=== PATIENT | female | born 1990 | race Caucasian/White ===

== ENCOUNTER 2020-03-24 20:26 | Emergency (ER) | payer MEDICAID, SELFPAY ==
[2020-03-24 21:16] VITALS: BP 103/63; PULSE 106; RESP 16; TEMP 37.1; O2SAT 100; BMI 23.2
--- NOTE | 2020-03-24 21:32 | ED.BACK ---
HPI - Back Pain/Injury General Chief Complaint: Back Pain/Injury Stated Complaint: Back pain Time Seen by Provider: 03/24/20 21:11 Source: patient Mode of arrival: ambulatory History of Present Illness HPI Narrative: This is a 29-year-old female without significant past medical history who presents with complaints of a ?bump? to the coccyx area that she has had for years but then states that 4 days ago she began experiencing significant pain without associated fevers, chills, nausea, vomiting, urinary pain/burning/frequency. In addition, patient states that she began having left-sided flank pain and points to the posterior-lateral left flank and says that it radiates inferiorly and then points to the left iliac crest area. She denies any trauma, or falls to the area. However she states that it is painful for her to sit directly on her buttocks. Related Data Allergies Allergy/AdvReac Type Severity Reaction Status Date / Time iodine [IODINE] Allergy Unknown ANGIOEDEMA Unverified 11/09/19 17:33 iodine Allergy Unknown Uncoded 09/07/17 00:00 SEAFOOD Allergy Unknown ANGIOEDEMA Uncoded 11/09/19 17:33 Review of Systems Review of Systems: Pertinent positives and negatives as stated in HPI 10 point review systems is otherwise negative. PMFSH Past Medical History Source: nursing notes reviewed Medical History No known health problems Social History Social History Alcohol intake: never Smoking Status: Current every day smoker Use of substances other than those prescribed or required for medical reasons: No Any prior treatment program specific to substance use: No Advance Directives: No Advance Directives Information Provided: Yes Physical Exam Vital Signs: Vital Signs: Last Vital Signs Temp 98.7 F 03/24/20 21:16 Pulse 106 H 03/24/20 21:16 Resp 16 03/24/20 21:16 BP 103/63 03/24/20 21:16 Pulse Ox 100 03/24/20 21:16 Body Mass Index 23.2 VITAL SIGNS: Reviewed. GENERAL: Well developed, well nourished, in no acute distress. HEAD: Normocephalic/atraumatic, EYES: PERRLA, EOMI intact without pain, no nystagmus/pallor/icterus noted EARS: Ext canals without abnormality, TMs non-bulging and non-erythematous NOSE: Nares patent bilateral OROPHARYNX: no oral lesions noted, posterior pharynx clear and non-erythematous without noted tonsillar enlargement/erythema/exudates NECK: Supple, no adenopathy LUNGS: Normal breath sounds. No adventitious sounds or accessory muscle use. SpO2<100> CARDIOVASCULAR: Regular rate and rhythm without noted murmurs, no JVD or lower extremity edema. ABDOMEN: Soft, non-tender, non-distended with bowel sounds. No rigidity. No guarding. No palpable masses or hernias noted BUTTOCKS: (physician relations specialist: Carolyne) inspection of the coccyx area does not reveal erythema, swelling, induration or tenderness on palpation; patient points to an area on the medial right gluteal cleft as the site of the bump and on palpation unable to appreciate and there is no overlying erythema, induration, swelling however there is a noted ?blackhead? slightly inferior to this location that does not appear inflamed. NEUROLOGIC: Alert and oriented x 4. Strength and sensation to light touch were grossly intact x 4. Course Course Course Narrative: This is a 29-year-old female with history and clinical presentation initially thought to be possible pilonidal cyst, however clinical exam does not support this. Possibility of a lipoma or sebaceous cyst, but again unable to palpate any identifiable ?bump?. As far as the left flank pain will investigate for possible pyelonephritis although given the absence of fever, nausea, vomiting this is less likely and the distribution of pain is inconsistent with renal colic. -UA, U preg, combination analgesics, soft tissue ultrasound of buttock area. Review of all investigations and re-evaluation: No acute findings to suggest UTI, , or abscess/cyst. Patient states that she has had resolution of the pain at her left flank and understands that she should follow-up with her primary care provider by calling the office in the morning. MDM - Back Pain/Injury Lab Data Labs: Lab Results 03/24/20 Range/Units 21:48 Urine Color YELLOW Urine Appearance CLEAR Urine pH 6.5 (5.0-8.0) Ur Specific [place] 1.020 (1.005-1.025) Urine Protein NEG (NEG-TRACE) MG/DL Urine Glucose (UA) NEG (NEG) MG/DL Urine Ketones NEG (NEG) MG/DL Urine Blood NEG (NEG) Urine Nitrite NEG (NEG) Ur Leukocyte Esterase TRACE H (NEG) Urine RBC 1-4 (0) /HPF Urine WBC 5-9 H (0-4) /HPF Ur Squamous Epith Cells 1+ /LPF Ur Renal Epithelial Cell TRACE /LPF Urine Bacteria 3+ /LPF Urine Test NEGATIVE (NEGATIVE) Discharge Plan Discharge Clinical Impression: Flank pain, Gluteal pain Patient Disposition: Home, Self-Care Instructions: Flank Pain (ED) Additional Instructions: 1. Tylenol 1000 mg, por v?a oral, cada 6 horas seg?n sea necesario para controlar el dolor. No exceda los 4000 mg en 24 horas. 2. Ibuprofeno 400 mg, por v?a oral con leche o alimentos, cada 6 horas seg?n sea necesario para controlar el dolor. Puede taiwo esto en combinaci?n con Tylenol para un mayor control de los s?ntomas. 3. Parche de lidoca?na, estos est?n disponibles en todos los [facility], apl?quelo en el ?julieta de m?xima sensibilidad wanda se indica en el empaque exterior. 4. Considere el uso de compresas h?medas y tibias en el ?julieta de la nalga, de 3 a 4 veces al d?a. 5. Nikhil un seguimiento con maier proveedor de atenci?n primaria llamando al consultorio ma?irene por la ma?irene. No dude en volver al servicio de urgencias si los s?ntomas empeoran. Referrals: Irene Combs MD [Primary Care Provider] - 2 days (Re-evaluation and management of bump/pain at right mid gluteal cleft, left flank without evidence of UTI or abscess/cyst on ultrasound.) Print Language: [place]
--- NOTE | 2020-03-24 21:38 | US_ITS ---
EXAMINATION: US right gluteal cleft CLINICAL INFORMATION: Evaluate bump. Rule out abscess. COMPARISON: None TECHNIQUE: Targeted ultrasound of the area of palpable abnormality. FINDINGS: In the area of clinical concern in the mid gluteal cleft, no focal mass, fluid collection or abscess is identified. US/US pelvic limited IMPRESSION: No focal fluid collection or abscess is identified in the area of clinical concern.
[2020-03-24] MEDS: Acetaminophen 325 MG TABLET 975 MG PO (21:49)
[2020-03-24] MEDS: Ketorolac Tromethamine 15 MG/ML VIAL IM (21:50)
[2020-03-24] MEDS: Lidocaine 4 % Patch ADH..PATCH 1 PATCH TRANSDERMA (21:52)
[2020-03-24 22:02] LABS: Glucose Urine UA NEG (NEG); Leukocyte Esterase Urine TRACE (NEG); Nitrite Urine NEG (NEG); PH 6.5 (5.0-8.0); UACC Culture Trigger YES; Urine Blood NEG (NEG); Urine Ketones NEG (NEG); Urine Protein NEG (NEG-TRACE)
[2020-03-24 22:10] LABS: Appearance Urine CLEAR; Color Urine YELLOW
[2020-03-24 22:11] LABS: UPreg QC Valid YES; Urine Pregnancy NEGATIVE (NEGATIVE)
[2020-03-24 22:19] LABS: Bacteria Urine 3+ /LPF; Renal Epithelial Cells Urine TRACE /LPF; Squamous Epithelial Cell Urine 1+ /LPF
== END 2020-03-24 23:35 | disposition home or self-care (01) ==
PROVIDERS: Emergency Provider Student in an Organized Health Care Education/Training Program; PCP Internal Medicine
DX: M54.5 Low back pain (principal); F17.200 Nicotine dependence, unspecified, uncomplicated; Z71.6 Tobacco abuse counseling
CPT/HCPCS: 76857; 81001; 81003; 81025; 87086; 87088; 87186; 96372; 99284; J1885

== ENCOUNTER 2020-03-28 23:44 | Emergency (ER) | payer OTHER, SELFPAY ==
[2020-03-29 00:03] VITALS: BP 108/64; PULSE 91; RESP 16; TEMP 36.9; O2SAT 99; BMI 45.9
--- NOTE | 2020-03-29 00:21 | ED_ITS ---
HPI - Headache General Chief Complaint: Nausea/Vomiting/Diarrhea Stated Complaint: VOMITING/HEADACHE Time Seen by Provider: 03/29/20 00:15 Source: patient Mode of arrival: ambulatory Limitations: no limitations History of Present Illness HPI Narrative: Patient history of migraine with feeling nauseated with frontal headache vomited 3 times today feels a little different than usual sensitive to light also she did not feel hungry for last 2 days denies any COVID contacts no fever no cough MD elicited complaint: headache and migraine Onset (ago): day(s) (1) Onset description: gradually Location: frontal Severity: moderate Quality & Timing: sharp Exacerbating factors: light and noise Relieving factors: nothing Context: occurred at rest Associated symptoms: nausea and vomiting Treatments prior to arrival: none Related Data Previous Rx's Medication Instructions Recorded escitalopram oxalate 10 mg tablet 10 mg PO DAILY 30 Days #30 tab 03/28/20 meloxicam 15 mg tablet 15 mg PO DAILY 30 Days #30 tab 03/28/20 prednisone 10 mg tablet 10 mg PO DAILY 9 Days #18 tab 03/28/20 [id number] 1 cap PO Q6H PRN #20 cap 03/29/20 [Fioricet] ondansetron 4 mg PO Q6-8H PRN #20 tab 03/29/20 sumatriptan succinate [Imitrex] 50 mg PO Q2H PRN #10 tab 03/29/20 Allergies Allergy/AdvReac Type Severity Reaction Status Date / Time iodine [IODINE] Allergy Unknown ANGIOEDEMA Unverified 11/09/19 17:33 iodine Allergy Unknown Uncoded 09/07/17 00:00 SEAFOOD Allergy Unknown ANGIOEDEMA Uncoded 11/09/19 17:33 Review of Systems Review of Systems: Constitutional : No Weight loss, No Fever, No Chills ENT/Mouth : No sore throat, No Rhinorrhea Eyes: No Eye Pain, No Swelling Cardiovascular : No Chest Pain, no palpitations Respiratory : No Cough, No Sputum, no shortness of breath Gastrointestinal : +Nausea, +Vomiting, No Diarrhea, No abdominal Pain, no black stools Genitourinary : No Dysuria, No Urinary Frequency Musculoskeletal : No joint pain, No Myalgias, No Joint Swelling Skin : No Skin Lesions, No rash Neuro : No Weakness, No Numbness, No Dizziness, Psych : No Anxiety/Panic, No Depression Heme/Lymph: No Bruising, No Lymphadenopathy Endocrine : No Polyuria, No Polydipsia All other systems reviewed and are negative [facility] Past Medical History Medical History Anxiety and depression Coccyx pain No known health problems Family History Family History Mother Cancer Diabetes Osteoporosis Father No problems noted. Social History Social History Alcohol intake: never Smoking Status: Current every day smoker Advance Directives: No Advance Directives Information Provided: No Physical Exam Vital Signs: Vital Signs: Last Vital Signs Temp 98.5 F 03/29/20 00:03 Pulse 91 03/29/20 00:03 Resp 16 03/29/20 00:03 BP 108/64 03/29/20 00:03 Pulse Ox 99 03/29/20 00:03 Body Mass Index 45.9 Appearance: Alert. Oriented X3. No acute distress. Eyes: Pupils equal, round and reactive to light. Sensitive to light ENT: Pharynx normal. Neck: Normal inspection. Neck supple. CVS: Normal heart rate and rhythm. Pulses normal. Respiratory: No respiratory distress. Breath sounds normal. Abdomen: Soft and nontender. Bowel sounds are present, no mass palpable, no CVA tenderness Skin: Skin warm and dry. Normal skin color. Normal skin turgor. Extremities: No lower extremity edema. Neuro: Oriented X 3. No motor deficit. No sensory deficit. Course Course Course Narrative: Patient felt better after Imitrex no headache at this time will discharge her home COVID 19 is negative MDM - Headache Lab Data Attestation: I reviewed the patient's lab results. Labs: Lab Results 03/29/20 03/29/20 Range/Units 00:29 00:31 Urine Color YELLOW Urine Appearance CLEAR Urine pH 6.0 (5.0-8.0) Ur Specific [place] 1.010 (1.005-1.025) Urine Protein NEG (NEG-TRACE) MG/DL Urine Glucose (UA) NEG (NEG) MG/DL Urine Ketones NEG (NEG) MG/DL Urine Blood NEG (NEG) Urine Nitrite NEG (NEG) Ur Leukocyte Esterase NEG (NEG) Urine Test NEGATIVE (NEGATIVE) COVID-19 (MAYELIN) Negative (Negative) COVID-19 Clin Com See Note Discharge Plan Discharge Clinical Impression: Migraine headache Qualifiers: Migraine type: without aura Status migrainosus presence: without status migrainosus Intractability: not intractable Qualified Code(s): G43.009 - Migraine without aura, not intractable, without status migrainosus Patient Disposition: Home, Self-Care Instructions: Migraine Headache (ED) Additional Instructions: Rest at home. Take medication from migraine as prescribed. Follow-up with your PCP if not better Prescriptions: New sumatriptan succinate [Imitrex] 50 mg tablet 50 mg PO Q2H PRN (Reason: migraine headache) Qty: 10 RF: 0 ondansetron 4 mg tablet,disintegrating 4 mg PO Q6-8H PRN (Reason: Nausea And Vomiting) Qty: 20 RF: 0 [id number]-ruhahyenxwxeo-uoxy [Fioricet] 50-300-40 mg capsule 1 cap PO Q6H PRN (Reason: pain) Qty: 20 RF: 0 No Action escitalopram oxalate 10 mg tablet 10 mg PO DAILY 30 Days Qty: 30 RF: 0 meloxicam 15 mg tablet 15 mg PO DAILY 30 Days Qty: 30 RF: 0 prednisone 10 mg tablet 10 mg PO DAILY 9 Days Qty: 18 RF: 0
[2020-03-29 00:45] LABS: Glucose Urine UA NEG (NEG); Leukocyte Esterase Urine NEG (NEG); Nitrite Urine NEG (NEG); Urine Blood NEG (NEG); Urine Ketones NEG (NEG); Urine Protein NEG (NEG-TRACE)
[2020-03-29 00:49] LABS: Appearance Urine CLEAR; Color Urine YELLOW; UPreg QC Valid YES; Urine Pregnancy NEGATIVE (NEGATIVE)
[2020-03-29 00:52] LABS: COVID-19 Test Negative (Negative); IDNOW Serial# 9DD0AD1C
== END 2020-03-29 01:09 | disposition home or self-care (01) ==
PROVIDERS: Emergency Provider Internal Medicine; PCP Internal Medicine
DX: G43.009 Migraine without aura, not intractable, without status migrainosus (principal); F17.200 Nicotine dependence, unspecified, uncomplicated; Z20.822 Contact with and (suspected) exposure to COVID-19; Z71.6 Tobacco abuse counseling; Z79.899 Other long term (current) drug therapy
CPT/HCPCS: 36415; 81003; 81025; 87635; 96372; 99283; 99284; J3030

== ENCOUNTER 2021-08-22 04:30 | Emergency (ER) | payer OTHER, SELFPAY ==
--- NOTE | ~2021-08-22 | CT_ITS ---
EXAMINATION: CT ABDOMEN AND PELVIS WITHOUT CONTRAST CLINICAL INFORMATION: Abdominal pain. COMPARISON: April 04, 2007. TECHNIQUE: Multidetector volumetric imaging was performed from the superior aspect of the liver through the pubic symphysis. Sagittal and coronal reformatted images were obtained on the technologist's workstation. This CT examination was performed using dose optimization techniques as appropriate, variously including the following: *Automated exposure control *Adjustment of mA and/or kV according to patient size (this includes techniques or standardized protocols for targeted exams where dose is matched to indication/reason for exam; i.e. extremities or head) *Use of iterative reconstruction technique DLP: 413 mGy-cm FINDINGS: Limited by lack of contrast. LUNG BASES: The visualized lung bases appear unremarkable. LIVER, GALLBLADDER, AND BILIARY TREE: The liver appears unremarkable in size, shape, and attenuation. No focal hepatic lesion or biliary ductal dilatation is appreciated. Remarkable appearance of the gallbladder. PANCREAS: Unremarkable. SPLEEN: Unremarkable. ADRENAL GLANDS: Unremarkable. KIDNEYS AND URETERS: The kidneys appear unremarkable in size, shape, and attenuation. No hydronephrosis, hydroureter, or calculi seen. BLADDER: Poorly distended, therefore suboptimally evaluated. Grossly unremarkable. GASTROINTESTINAL TRACT: Suspect long segment thickening of left abdominal small bowel loops, with mild induration of adjacent fat. Unremarkable appearance of the large bowel. No diverticulosis. Normal-appearing distal ileum. No evidence of appendicitis. ABDOMINAL WALL: No significant hernia is appreciated. LYMPH NODES: Normal. VASCULAR: Unremarkable. PELVIC VISCERA: Less than 2 cm, ovoid, hypodense, presumably cystic lesions either side of the introitus, left larger than right (image 84, series 3). Tampon in vagina. OSSEOUS STRUCTURES: Unremarkable. CT/CT abdomen pelvis wo con IMPRESSION: Limited by lack of oral and intravenous contrast. Suspect long segment thickening of left abdominal small bowel loops, with mild induration of adjacent fat. The findings suggest enteritis. Less than 2 cm, ovoid, hypodense, presumably cystic lesions either side of the introitus, left larger than right. Differential diagnosis includes, but is not limited to, Bartholin's gland cysts. Recommend clinical correlation.
[2021-08-22 04:50] VITALS: BP 109/79; PULSE 89; RESP 20; TEMP 37.2; O2SAT 98; BMI 22.9
[2021-08-22 04:51] LABS: MANUAL DIFF FLAG NO
[2021-08-22 04:54] LABS: Basophils Percent Auto 0.3 % (0-2); Eosinophils Absolute Auto 0.1 X10*3/uL (0.0-0.4); Eosinophils Percent Auto 0.7 % (0-4); Hematocrit 38.6 % (37.0-47.0); Hemoglobin 13.1 g/dl (12.0-16.0); Imm Gran Abs Auto 0.05 X10*3/uL (0.00-0.03); Imm Gran Pct Auto 0.4 % (0.0-0.4); Lymphocytes Absolute Auto 2.3 X10*3/uL (1.2-4.9); Lymphocytes Percent Auto 20.4 % (20-40); Mean Corpuscular HGB Conc 33.9 g/dl (31.0-35.0); Mean Corpuscular Hemoglobin 29.8 pg (27.0-33.0); Mean Corpuscular Volume 87.9 fL (80.0-98.0); Mean Platelet Volume 9.9 fL (9.4-12.3); Monocytes Absolute Auto 0.6 X10*3/uL (0.1-1.2); Monocytes Percent Auto 5.7 % (2-11); Neutrophils Absolute Auto 8.1 x10*3/uL (2.0-8.3); Neutrophils Percent Auto 72.5 % (45-73); Platelet Count 286 X10*3/uL (160-400); Red Blood Count 4.39 X10*6/uL (4.20-5.50); Red Cell Distribution Width 12.9 % (11.0-16.0); White Blood Count 11.2 X10*3/uL (4.8-10.8)
[2021-08-22 04:59] LABS: Appearance Urine HAZY; Color Urine DK YELLOW; Glucose Urine UA NEG (NEG); Leukocyte Esterase Urine NEG (NEG); Nitrite Urine NEG (NEG); Specific Gravity - Urine 1.025 (1.005-1.025); Urine Blood NEG (NEG); Urine Ketones NEG (NEG); Urine Protein NEG (NEG-TRACE)
[2021-08-22 05:02] LABS: UPreg QC Valid YES; Urine Pregnancy NEGATIVE (NEGATIVE)
[2021-08-22 05:08] LABS: Alanine Aminotransferase 42 U/L (0-31); Albumin Level 4.1 g/dL (3.5-5.0); Alkaline Phosphatase 83 U/L (39-117); Anion Gap 10 (12-20); Aspartate Amino Transferase 80 U/L (5-31); Bilirubin Total 1.5 mg/dL (0.0-1.0); Blood Urea Nitrogen 8 mg/dL (9-16); Calcium 9.3 mg/dL (8.4-10.2); Carbon Dioxide 30 mmol/L (22-29); Chloride 102 mmol/L (96-108); Creatinine Clr Calc Pharmacy 81.3; Estimated Glomerular Filt Rate > 60; Glucose Random 109 mg/dL (60-115); Influenza A Negative (Negative); Influenza B2 Negative (Negative); Potassium 4.1 mmol/L (3.3-5.1); Sodium 138 mmol/L (135-145); Total Protein 6.6 g/dL (6.5-8.0)
[2021-08-22 05:29] LABS: COVID-19 Test Negative (Negative)
--- NOTE | 2021-08-22 08:09 | ED.GENADULT ---
HPI - General Adult General Chief complaint: Nausea/Vomiting/Diarrhea Stated complaint: stomach pain & vomiting Time Seen by Provider: 08/22/21 08:08 Source: patient and family (mother) Mode of arrival: ambulatory Limitations: no limitations History of Present Illness HPI narrative: Patient is a 30 year old female presenting to the emergency department today with abdominal pain, nausea, and vomiting. Patient states that the pain feels twisting and she isn't sure where it is coming from. Patient states that she ate pork and it started right after that. Patient denies any dizziness, lightheadedness, fever, chills, blurry vision, double vision, loss of vision, chest pain, difficulty breathing, shortness of breath, back pain, night sweats, pain with urination, increased urinary frequency, increased urinary urgency, blood in her urine or stool, syncope or a near syncopal episode, recent trauma or falls, bowel incontinence, bladder incontinence, bowel retention, bladder retention, or any other complaints at this time. Onset (ago): hour(s) Location: abdomen Radiation: non-radiation Severity: mild Severity scale (1-10): 3 Pain Consistency: constant Relieving factors: none Exacerbating factors: none Associated symptoms: nausea/vomiting Treatments prior to arrival: none Related Data Previous Rx's Medication Instructions Recorded escitalopram oxalate 10 mg tablet 10 mg PO DAILY 30 days #30 tabs 03/28/20 meloxicam 15 mg tablet 15 mg PO DAILY 30 days #30 tabs 03/28/20 prednisone 10 mg tablet 10 mg PO DAILY 9 days #18 tabs 03/28/20 [id number] 1 cap PO Q6H PRN pain #20 caps 03/29/20 50 mg-300 mg-40 mg capsule (Fioricet) sumatriptan succinate 50 mg tablet 50 mg PO Q2H PRN migraine headache 03/29/20 (Imitrex) #10 tabs ondansetron 4 mg disintegrating 4 mg PO Q8H 3 days #9 tabs 08/22/21 tablet Allergies Allergy/AdvReac Type Severity Reaction Status Date / Time iodine [IODINE] Allergy Unknown ANGIOEDEMA Unverified 11/09/19 17:33 iodine Allergy Unknown Uncoded 09/07/17 00:00 SEAFOOD Allergy Unknown ANGIOEDEMA Uncoded 11/09/19 17:33 Review of Systems Constitutional: Constitutional: Reports no additional constitutional complaints, Denies chills, Denies fever(s) and Denies night sweats Eyes: Eyes: Reports no additional eye complaints, Denies blurry vision, Denies change in vision, Denies diplopia, Denies eye discharge, Denies loss of vision and Denies eye pain ENT: Denies dizziness Cardiovascular: Cardiovascular: Reports no additional cardiovascular complaints, Denies chest pain, Denies lightheadedness, Denies Loss of Consciousness and Denies dyspnea Respiratory: Respiratory: Reports no additional respiratory complaints and Denies dyspnea Gastrointestinal: Gastrointestinal: Reports no additional gastrointestinal complaints, Reports abdominal pain, Denies melena, Denies hematochezia, Denies change in bowel habits, Denies change in stool character, Reports nausea and Reports vomiting Genitourinary: Genitourinary: Denies hematuria, Denies urinary frequency, Denies dysuria, Denies urinary incontinence, Denies urinary hesitancy and Denies urinary urgency Musculoskeletal: Musculoskeletal: Reports no additional musculoskeletal complaints, Denies numbness and Denies tingling Neurologic: Denies dizziness, Denies loss of vision, Denies numbness and Denies tingling Psychiatric: Psychiatric: Reports no additional psychiatric complaints Endocrine: Endocrine: Reports no additional endocrine complaints Hematologic/Lymphatic: Hematologic/Lymphatic: Reports no additional hematologic/lymphatic complaints Allergic/Immunologic: Allergic/Immunologic: Reports no additional allergic/immunologic complaints [facility] Past Medical History Attestation statement: The following information was validated with the patient. Source: old records reviewed Medical History Anxiety and depression Coccyx pain No known health problems Family History Family History Mother Cancer Diabetes Osteoporosis Father No problems noted. Social History Social History Alcohol intake: never Advance Directives: No Advance Directives Information Provided: No Physical Exam ED Vital Signs: Vital Signs - 24 hr 08/22/21 04:50 08/22/21 08:12 08/22/21 10:26 Temperature 98.9 F 98.4 F 99.4 F Pulse Rate 89 61 66 Respiratory Rate 20 16 16 Blood Pressure 109/79 99/53 L 110/70 Pulse Oximetry 98 100 100 Oxygen Delivery Method Room Air Room Air Room Air BMI result Body Mass Index 22.9 Const General: cooperative, no acute distress, alert and awake Nutritional Appearance: well nourished Orientation/consciousness: patient oriented x3 Limitations: no limitations HENMT Head: Yes normal to inspection and Yes atraumatic Ears: hearing grossly normal bilaterally and external ears normal General nose exam: Normal external nose present, no nasal discharge noted and no epistaxis Face and sinus: Yes normal facial exam, No abrasion and No laceration Mouth: Normal oral and palatal mucosa present, no drooling and no muffled voice Eyes General: appearance normal, both eyes and all related structures Periorbital: periorbital findings normal Eyelids: Yes eyelids normal Conjunctivae: conjunctivae normal Pupils: Equal, round and reactive pupils present EOM: EOMs intact bilaterally Neck Neck: Yes normal visual inspection, Yes full ROM and Yes no lymphadenopathy Chest Chest palpation & inspection: normal inspection of the chest Resp Effort & Inspection: normal respiratory effort and able to speak in complete sentences Auscultation: clear to auscultation bilaterally Cardio Rate: regular rate Rhythm: regular rhythm GI Inspection: Yes normal to inspection Neuro General: patient oriented x3 and moves all extremities Cranial nerves: Yes Equal, round and reactive pupils present Cognition (Neuro): normal cognition Motor exam (neuro): 5/5 motor strength present throughout Sensory Exam: Normal double simultaneous stimulation for sensation Coordination: [id number] test normal Extrem General: Yes normal to inspection, Yes full ROM and Yes capillary refill normal Psych Appearance: grossly normal Mental Status: mental status grossly normal Affect: normal affect Attitude: cooperative Thought process: Normal thought process present Thought content: Normal thought content present Insight: Good insight present (Psych) Medical Decision Making [facility] Narrative Medical decision making narrative: Patient is a 30 year old female presenting to the emergency department today with generalized abdominal pain, nausea, and vomiting. Patient's physical exam was unremarkable. Patient's blood work was unremarkable. Patient's urine showed no acute process. Patient's abdominal CT showed possible enteritis. I explained my physical exam findings as well as all test results to the patient and the patient's mother. I answered all questions asked by the patient and the patient's mother. Patient received IV Zofran, fluids, protonix, and PO Maalox which she stated helped her symptoms significantly. I stressed the importance of the patient taking her medication as prescribed. I stressed the importance of the patient following up with her primary care provider. I stressed the importance of the patient returning to the emergency department immediately if her symptoms were to worsen or if she were to develop any dizziness, shortness of breath, difficulty breathing, chest pain, blurry vision, loss of vision, nausea, vomiting, abdominal pain, fever, chills, back pain, or any other complaints. Patient and the patient's mother verbalized agreement and understanding with this treatment plan and discharge. Differential Diagnosis Differential Diagnosis: abdominal pain, nausea, vomiting Medical Records Medical records reviewed: Yes I reviewed the patient's medical records. Lab Data Lab results reviewed: Yes I reviewed the patient's lab results. Result diagrams: 08/22/21 04:45 08/22/21 04:45 Labs: Lab Results 08/22/21 08/22/21 08/22/21 Range/Units 04:45 04:45 04:45 WBC 11.2 H (4.8-10.8) X10*3/uL RBC 4.39 (4.20-5.50) X10*6/uL Hgb 13.1 (12.0-16.0) g/dl Hct 38.6 (37.0-47.0) % MCV 87.9 (80.0-98.0) fL MCH 29.8 (27.0-33.0) pg MCHC 33.9 (31.0-35.0) g/dl RDW 12.9 (11.0-16.0) % Plt Count 286 (160-400) X10*3/uL MPV 9.9 (9.4-12.3) fL Immature Gran % (Auto) 0.4 (0.0-0.4) % Neut % (Auto) 72.5 (45-73) % Lymph % (Auto) 20.4 (20-40) % Boyle % (Auto) 5.7 (2-11) % Eos % (Auto) 0.7 (0-4) % Baso % (Auto) 0.3 (0-2) % Lymph # (Auto) 2.3 (1.2-4.9) X10*3/uL Boyle # (Auto) 0.6 (0.1-1.2) X10*3/uL Eos # (Auto) 0.1 (0.0-0.4) X10*3/uL Baso # (Auto) 0.0 (0.0-0.2) X10*3/uL Abs Immat Gran (auto) 0.05 H (0.00-0.03) X10*3/uL Absolute Neuts (auto) 8.1 (2.0-8.3) x10*3/uL Absolute Nucleated RBC 0.000 (0.0-0.012) X10*3/uL Nucleated RBC % (auto) 0.0 (0.0-0.2) /100WBC Sodium 138 (135-145) mmol/L Potassium 4.1 (3.3-5.1) mmol/L Chloride 102 (96-108) mmol/L Carbon Dioxide 30 H (22-29) mmol/L Anion Gap 10 L (12-20) BUN 8 L (9-16) mg/dL Creatinine 0.80 (0.5-1.4) mg/dL Estim Creat Clear Calc 81.3 Estimated GFR > 60 Random Glucose 109 (60-115) mg/dL Calcium 9.3 (8.4-10.2) mg/dL Total Bilirubin 1.5 H (0.0-1.0) mg/dL AST 80 H (5-31) U/L ALT 42 H (0-31) U/L Alkaline Phosphatase 83 (39-117) U/L Total Protein 6.6 (6.5-8.0) g/dL Albumin 4.1 (3.5-5.0) g/dL Urine Color Urine Appearance Urine pH (5.0-8.0) Ur Specific [place] (1.005-1.025) Urine Protein (NEG-TRACE) MG/DL Urine Glucose (UA) (NEG) MG/DL Urine Ketones (NEG) MG/DL Urine Blood (NEG) Urine Nitrite (NEG) Ur Leukocyte Esterase (NEG) Urine Test (NEGATIVE) COVID-19 (MAYELIN) (Negative) COVID-19 Clin Com Influenza Type A (ROGE) Negative (Negative) Influenza Type B (ROGE) Negative (Negative) Influenza A & B Note See Note 08/22/21 08/22/21 08/22/21 Range/Units 04:45 04:49 04:49 WBC (4.8-10.8) X10*3/uL RBC (4.20-5.50) X10*6/uL Hgb (12.0-16.0) g/dl Hct (37.0-47.0) % MCV (80.0-98.0) fL MCH (27.0-33.0) pg MCHC (31.0-35.0) g/dl RDW (11.0-16.0) % Plt Count (160-400) X10*3/uL MPV (9.4-12.3) fL Immature Gran % (Auto) (0.0-0.4) % Neut % (Auto) (45-73) % Lymph % (Auto) (20-40) % Boyle % (Auto) (2-11) % Eos % (Auto) (0-4) % Baso % (Auto) (0-2) % Lymph # (Auto) (1.2-4.9) X10*3/uL Boyle # (Auto) (0.1-1.2) X10*3/uL Eos # (Auto) (0.0-0.4) X10*3/uL Baso # (Auto) (0.0-0.2) X10*3/uL Abs Immat Gran (auto) (0.00-0.03) X10*3/uL Absolute Neuts (auto) (2.0-8.3) x10*3/uL Absolute Nucleated RBC (0.0-0.012) X10*3/uL Nucleated RBC % (auto) (0.0-0.2) /100WBC Sodium (135-145) mmol/L Potassium (3.3-5.1) mmol/L Chloride (96-108) mmol/L Carbon Dioxide (22-29) mmol/L Anion Gap (12-20) BUN (9-16) mg/dL Creatinine (0.5-1.4) mg/dL Estim Creat Clear Calc Estimated GFR Random Glucose (60-115) mg/dL Calcium (8.4-10.2) mg/dL Total Bilirubin (0.0-1.0) mg/dL AST (5-31) U/L ALT (0-31) U/L Alkaline Phosphatase (39-117) U/L Total Protein (6.5-8.0) g/dL Albumin (3.5-5.0) g/dL Urine Color DK YELLOW Urine Appearance HAZY Urine pH 6.0 (5.0-8.0) Ur Specific [place] 1.025 (1.005-1.025) Urine Protein NEG (NEG-TRACE) MG/DL Urine Glucose (UA) NEG (NEG) MG/DL Urine Ketones NEG (NEG) MG/DL Urine Blood NEG (NEG) Urine Nitrite NEG (NEG) Ur Leukocyte Esterase NEG (NEG) Urine Test NEGATIVE (NEGATIVE) COVID-19 (MAYELIN) Negative (Negative) COVID-19 Clin Com See Note Influenza Type A (ROGE) (Negative) Influenza Type B (ROGE) (Negative) Influenza A & B Note Imaging Data CT scan - abdomen: Attestation: I personally reviewed and interpreted this imaging study as follows: My impression: No acute process. Radiologist's impression: EXAMINATION: CT ABDOMEN AND PELVIS WITHOUT CONTRAST? CLINICAL INFORMATION: Abdominal pain.? COMPARISON: April 04, 2007.? TECHNIQUE: Multidetector volumetric imaging was performed from the superior aspect of the liver through the pubic symphysis. Sagittal and coronal reformatted images were obtained on the technologist's workstation.? This CT examination was performed using dose optimization techniques as appropriate, variously including the following: *Automated exposure control *Adjustment of mA and/or kV according to patient size (this includes techniques or standardized protocols for targeted exams where dose is matched to indication/reason for exam; i.e. extremities or head) *Use of iterative reconstruction technique DLP: 413 mGy-cm FINDINGS: Limited by lack of contrast. LUNG BASES: The visualized lung bases appear unremarkable.? LIVER, GALLBLADDER, AND BILIARY TREE: The liver appears unremarkable in size, shape, and attenuation. No focal hepatic lesion or biliary ductal dilatation is appreciated. Remarkable appearance of the gallbladder.? PANCREAS: Unremarkable.? SPLEEN: Unremarkable.? ADRENAL GLANDS: Unremarkable.? KIDNEYS AND URETERS: The kidneys appear unremarkable in size, shape, and attenuation. No hydronephrosis, hydroureter, or calculi seen. BLADDER: Poorly distended, therefore suboptimally evaluated. Grossly unremarkable.? GASTROINTESTINAL TRACT: Suspect long segment thickening of left abdominal small bowel loops, with mild induration of adjacent fat. Unremarkable appearance of the large bowel. No diverticulosis. Normal-appearing distal ileum. No evidence of appendicitis. ABDOMINAL WALL: No significant hernia is appreciated.? LYMPH NODES: Normal. VASCULAR: Unremarkable. PELVIC VISCERA: Less than 2 cm, ovoid, hypodense, presumably cystic lesions either side of the introitus, left larger than right (image 84, series 3). Tampon in vagina.? OSSEOUS STRUCTURES: Unremarkable.? CT/CT abdomen pelvis wo con IMPRESSION: ? Limited by lack of oral and intravenous contrast. ? Suspect long segment thickening of left abdominal small bowel loops, with mild induration of adjacent fat. The findings suggest enteritis. ? Less than 2 cm, ovoid, hypodense, presumably cystic lesions either side of the introitus, left larger than right. Differential diagnosis includes, but is not limited to, Bartholin's gland cysts. Recommend clinical correlation.? Dictated By: Kyaw Jennings Signed By: Electronically signed by Kyaw?Michaela 08/22/21 0921 Discharge Plan Discharge Clinical Impression: Enteritis Patient Disposition: Home, Self-Care Instructions: Enteritis (ED) Additional Instructions: Follow up with your primary care provider. Return to the emergency department immediately if your symptoms worsen or if you develop any dizziness, shortness of breath, difficulty breathing, chest pain, blurry vision, loss of vision, nausea, vomiting, abdominal pain, fever, chills, back pain, or any other complaints. Prescriptions: New ondansetron 4 mg tablet,disintegrating 4 mg PO Q8H 3 Days Qty: 9 0RF Discontinued ondansetron 4 mg tablet,disintegrating 4 mg PO Q6-8H PRN (Reason: Nausea And Vomiting) Qty: 20 0RF No Action sumatriptan succinate [Imitrex] 50 mg tablet 50 mg PO Q2H PRN (Reason: migraine headache) Qty: 10 0RF Rx Instructions: do not exceed 2 doses per 24 hrs [id number] [Fioricet] 50-300-40 mg capsule 1 cap PO Q6H PRN (Reason: pain) Qty: 20 0RF escitalopram oxalate 10 mg tablet 10 mg PO DAILY 30 Days Qty: 30 0RF meloxicam 15 mg tablet 15 mg PO DAILY 30 Days Qty: 30 0RF prednisone 10 mg tablet 10 mg PO DAILY 9 Days Qty: 18 0RF Rx Instructions: 10mg 3tabs X 3 days 2tabs x 3 days 1tab x 3 days Referrals: [facility] [place] [facility] [Provider Group] (If symptoms persist, call to establish and follow up with a GI provider. ) Irene Combs MD [Primary Care Provider] - (Follow up with your primary care provider. ) Stand Alone Forms: Work/School Release Print Language: [place]
[2021-08-22 08:12] VITALS: BP 99/53; PULSE 61; RESP 16; TEMP 36.9; O2SAT 100
[2021-08-22] MEDS: ondansetron HCL 4 MG/2 ML VIAL IVPUSH (09:05)
[2021-08-22] MEDS: 0.9 % Sodium Chloride 500 ML 999 ML IV (09:06)
[2021-08-22] MEDS: Pantoprazole Sodium 40 MG/10 ML VIAL IVPUSH (09:14)
[2021-08-22] MEDS: Magnesium Hydrox/Alum Hydrox 30 ML ORAL.SUSP 15 ML PO (09:16)
--- NOTE | 2021-08-22 09:23 | PC.NURSE ---
no active vomiting but continues to have nausea, medicated as charted for sxs. iv fluids infusing
[2021-08-22 10:26] VITALS: BP 110/70; PULSE 66; RESP 16; TEMP 37.4; O2SAT 100
== END 2021-08-22 11:24 | disposition home or self-care (01) ==
PROVIDERS: Emergency Provider Emergency Medicine Emergency Medical Services; PCP Internal Medicine
DX: K52.9 Noninfective gastroenteritis and colitis, unspecified (principal); R11.2 Nausea with vomiting, unspecified; Z20.822 Contact with and (suspected) exposure to COVID-19; Z79.899 Other long term (current) drug therapy
CPT/HCPCS: 74176; 80053; 81003; 81025; 85025; 87502; 87635; 96374; 96375; 99283; 99284; J2405

== ENCOUNTER 2021-09-12 08:35 | Outpatient (REF) | payer OTHER, SELFPAY ==
[2021-09-12 09:50] LABS: Alanine Aminotransferase 170 U/L (0-31); Albumin Level 4.1 g/dL (3.5-5.0); Alkaline Phosphatase 119 U/L (39-117); Aspartate Amino Transferase 243 U/L (5-31); Bilirubin Direct 2.3 mg/dL (0.0-0.5); Bilirubin Total 3.7 mg/dL (0.0-1.0); Total Protein 6.6 g/dL (6.5-8.0)
[2021-09-12 10:08] LABS: Thyroid Stimulating Hormone 0.37 uIU/mL (0.32-4.0)
== END 2021-09-12 08:36 | disposition home or self-care (01) ==
LOC: HO.LAB 08:35
PROVIDERS: PCP Internal Medicine; Visit Provider Internal Medicine
DX: F19.90 Other psychoactive substance use, unspecified, uncomplicated (principal)
CPT/HCPCS: 36415; 80076; 84443

== ENCOUNTER 2021-09-19 14:09 | Outpatient (REF) | payer OTHER, SELFPAY ==
--- NOTE | ~2021-09-19 | US_ITS ---
EXAMINATION: US ABDOMEN COMPLETE CLINICAL INFORMATION: Abnormal levels of other serum enzymes. COMPARISON: CT abdomen and pelvis 08/22/2021. TECHNIQUE: Real-time imaging of the abdominal viscera. FINDINGS: PANCREAS: Normal. ABDOMINAL AORTA: The proximal, mid, and distal segments are normal in caliber. INFERIOR VENA CAVA: Visualized portions are normal. LIVER: Normal. The liver is normal in size. The liver contour is normal. Parenchymal echogenicity is normal. No focal hepatic lesion. There is no intrahepatic biliary duct dilatation seen. GALLBLADDER: Cholelithiasis. No evidence of gallbladder wall thickening or pericholecystic free fluid. Negative Mac's sign. COMMON BILE DUCT: Normal in caliber measuring 0.3 cm in diameter. RIGHT KIDNEY: No hydronephrosis. No renal calculi or focal parenchymal lesions. The kidney measures 10.1 cm in maximum dimension. LEFT KIDNEY: No hydronephrosis. No renal calculi or focal parenchymal lesions. The kidney measures 10.8 cm in maximum dimension. SPLEEN: Normal. The spleen measures 9.8 cm in maximum dimension. FREE FLUID: None. US/US abdomen complete IMPRESSION: Cholelithiasis but no sonographic evidence of acute cholecystitis.
== END 2021-09-19 14:10 | disposition home or self-care (01) ==
LOC: HO.US 14:09
PROVIDERS: Visit Provider Internal Medicine
DX: R74.8 Abnormal levels of other serum enzymes (principal)
CPT/HCPCS: 76700

== ENCOUNTER 2021-09-30 15:32 | Outpatient (REF) | payer OTHER, SELFPAY ==
[2021-09-30 15:41] LABS: MANUAL DIFF FLAG NO
[2021-09-30 15:47] LABS: Basophils Percent Auto 0.3 % (0-2); Eosinophils Absolute Auto 0.1 X10*3/uL (0.0-0.4); Eosinophils Percent Auto 0.6 % (0-4); Hematocrit 37.5 % (37.0-47.0); Hemoglobin 12.2 g/dl (12.0-16.0); Imm Gran Abs Auto 0.02 X10*3/uL (0.00-0.03); Imm Gran Pct Auto 0.2 % (0.0-0.4); Lymphocytes Absolute Auto 1.7 X10*3/uL (1.2-4.9); Lymphocytes Percent Auto 20.1 % (20-40); Mean Corpuscular HGB Conc 32.5 g/dl (31.0-35.0); Mean Corpuscular Hemoglobin 29.3 pg (27.0-33.0); Mean Corpuscular Volume 90.1 fL (80.0-98.0); Mean Platelet Volume 10.5 fL (9.4-12.3); Monocytes Absolute Auto 0.6 X10*3/uL (0.1-1.2); Neutrophils Absolute Auto 6.2 x10*3/uL (2.0-8.3); Neutrophils Percent Auto 71.8 % (45-73); Platelet Count 287 X10*3/uL (160-400); Red Blood Count 4.16 X10*6/uL (4.20-5.50); Red Cell Distribution Width 13.7 % (11.0-16.0); White Blood Count 8.6 X10*3/uL (4.8-10.8)
[2021-09-30 16:08] LABS: Alanine Aminotransferase 18 U/L (0-31); Albumin Level 4.3 g/dL (3.5-5.0); Alkaline Phosphatase 81 U/L (39-117); Anion Gap 14 (12-20); Aspartate Amino Transferase 16 U/L (5-31); Bilirubin Direct 0.3 mg/dL (0.0-0.5); Bilirubin Total 0.8 mg/dL (0.0-1.0); Blood Urea Nitrogen 7 mg/dL (9-16); Calcium 9.7 mg/dL (8.4-10.2); Carbon Dioxide 27 mmol/L (22-29); Chloride 106 mmol/L (96-108); Estimated Glomerular Filt Rate > 60; Glucose Random 77 mg/dL (60-115); Potassium 4.6 mmol/L (3.3-5.1); Sodium 142 mmol/L (135-145); Total Protein 6.9 g/dL (6.5-8.0)
== END 2021-09-30 15:33 | disposition home or self-care (01) ==
LOC: HO.LAB 15:32
PROVIDERS: PCP Internal Medicine; Visit Provider Surgery
DX: R10.9 Unspecified abdominal pain (principal); K80.20 Calculus of gallbladder without cholecystitis without obstruction; R79.89 Other specified abnormal findings of blood chemistry
CPT/HCPCS: 36415; 80048; 80076; 85025; 99202

== ENCOUNTER → 2021-10-06 13:41 | Outpatient (BNVA) | payer OTHER, SELFPAY | PROVIDERS: PCP Internal Medicine; Visit Provider Internal Medicine | DX: R10.11 Right upper quadrant pain (principal); R19.7 Diarrhea, unspecified; F17.200 Nicotine dependence, unspecified, uncomplicated | CPT/HCPCS: 99202 ==

== ENCOUNTER → 2021-11-13 10:40 | Day surgery (SDC) | payer OTHER, SELFPAY ==
[2021-11-10 12:32] VITALS: BMI 24.1
[2021-11-13 11:08] VITALS: BP 144/79; PULSE 68; RESP 17; TEMP 36; O2SAT 97
--- NOTE | 2021-11-13 11:21 | PC.NURSE ---
pt sts last used percocet 3 months ago mantilla and hcg pending
[2021-11-13] MEDS: Lactated Ringers 1,000 ML 50 ML IVCONT (11:22)
[2021-11-13 11:41] LABS: UPreg QC Valid YES; Urine Pregnancy NEGATIVE (NEGATIVE)
--- NOTE | 2021-11-13 12:18 | MHC.SHP ---
Pre-Procedural Eval Section A Date of Service: 11/13/21 The patient is an INPATIENT: No The History & Physical has been completed within 30 days and I have reviewed it.: Yes Section B Chief Complaint: abd pain Allergies: Allergies Allergy/AdvReac Type Severity Reaction Status Date / Time iodine [IODINE] Allergy Unknown ANGIOEDEMA Verified 10/06/21 15:09 SEAFOOD Allergy Unknown ANGIOEDEMA Uncoded 09/30/21 14:59 Plan Diagnosis/Plan: Unchanged I have reviewed the history and physical and performed a pertinent physical examination on my patient. No changes have occurred unless specified.
--- NOTE | 2021-11-13 12:19 | P.OP_ITS ---
Operative Note Operative Note Date of Service: 11/13/21 Narrative: Procedure: Esophagogastroduodenoscopy Endoscopist: Jaleesa Hassan MD Indication: Epigastric pain Anesthesia Provider: Dr Enrrique Tineo Anesthesia Type: MAC ?? EGD Procedure:?? The procedure, indications, preparation and potential complications were reviewed with the patient, who indicated understanding and gave written informed consent to proceed. A physical exam was performed. []The patient was electively intubated for airway protection the anesthesiolog ist. The endoscope was introduced through the mouth, and advanced to the second part of duodenum. The mucosa was carefully examined on slow withdrawal of the endoscope. The patient tolerated the procedure well. There were no immediate complications.? ? EGD Findings:?Esophagus:? Normal mucosa noted in the entire esophagus. The Z line was at []. Middle and lower esophagus forceps biopsies were obtained to rule out eosinophilic esophagitis. ?Stomach:? Normal mucosa was noted in the stomach. [] Random gastric biopsies were taken to rule out H Pylori infection. [] Diffuse congestion and erythema in mosaic pattern consistent with portal hypertensive gastropathy was noted in the whole stomach. ?Duodenum:? Normal mucosa was noted in the whole of the examined duodenum. []Biopsies were taken from duodenal bulb and second portion of the duodenum to rule out ? EGD Impressions:?Normal esophagus (biopsy) ?Normal stomach (biopsy) ?Normal duodenum (biopsy) ?? Recommendations:?Follow biopsy results. Our office will call or send a letter with results within 7-10 days. ?Start/continue PPI therapy. ?Resume anticoagulation today. ?If H pylori +, patient will be prescribed eradication therapy followed by test of cure. ?Avoid NSAIDs. ?Above has been reviewed with the patient. Educational hand outs were provided at discharge. ?
[2021-11-13 12:24] LABS: Amphetamine Screen Urine Not Detected (Not Detect); Barbiturates, Urine Not Detected (Not Detect); Benzodiazepines Screen Urine Not Detected (Not Detect); Cannabinoid Screen Urine Not Detected (Not Detect); Cocaine Screen Urine Not Detected (Not Detect); Fentanyl, urine POSITIVE (Not Detect); Opiate Screen Urine Not Detected (Not Detect); Phencyclidine Screen Urine Not Detected (Not Detect)
--- NOTE | 2021-11-13 12:27 | PC.NURSE ---
pt cx +fentayl pt aware
== END ==
PROVIDERS: Anesthesiology; PCP Internal Medicine; Visit Provider Internal Medicine
DX: R10.9 Unspecified abdominal pain (principal); Z53.8 Procedure and treatment not carried out for other reasons
CPT/HCPCS: 80307; 81025

== ENCOUNTER 2021-11-20 08:20 | Emergency (ER) | payer OTHER, SELFPAY ==
--- NOTE | ~2021-11-20 | XR_ITS ---
EXAMINATION: XR SHOULDER LEFT XR HUMERUS LEFT CLINICAL INFORMATION: History of fall. COMPARISON: None TECHNIQUE: Left humerus, 2 views Left shoulder, 3 views FINDINGS: Left shoulder: The humeral head is well positioned over the intact glenoid. Glenohumeral joint space is maintained. No arthritic deformity, fracture or subluxation. Acromioclavicular joint is normal. The acromiohumeral and coracoclavicular distances are normal. Scapula is normal. No calcium deposition within rotator cuff tendons. The visualized portion of the left lung is normal. Left humerus: The humerus is normal. No cortical fracture or periostitis. No focal soft tissue swelling. Bones have normal alignment at the elbow. XR/XR shoulder LT min 2V IMPRESSION: * Normal left shoulder. * Normal left humerus. No evidence of fracture or malalignment.
--- NOTE | ~2021-11-20 | XR_ITS ---
EXAMINATION: XR SHOULDER LEFT XR HUMERUS LEFT CLINICAL INFORMATION: History of fall. COMPARISON: None TECHNIQUE: Left humerus, 2 views Left shoulder, 3 views FINDINGS: Left shoulder: The humeral head is well positioned over the intact glenoid. Glenohumeral joint space is maintained. No arthritic deformity, fracture or subluxation. Acromioclavicular joint is normal. The acromiohumeral and coracoclavicular distances are normal. Scapula is normal. No calcium deposition within rotator cuff tendons. The visualized portion of the left lung is normal. Left humerus: The humerus is normal. No cortical fracture or periostitis. No focal soft tissue swelling. Bones have normal alignment at the elbow. XR/XR humerus LT IMPRESSION: * Normal left shoulder. * Normal left humerus. No evidence of fracture or malalignment.
--- NOTE | ~2021-11-20 | XR_ITS ---
EXAMINATION: XR ELBOW, LEFT CLINICAL INFORMATION: Bruising and pain left elbow COMPARISON: None TECHNIQUE: AP, lateral, and oblique views of the left elbow. FINDINGS: The bones and soft tissues are normal. No fracture or joint effusion. Alignment is anatomic. Joint spaces are maintained. XR/XR elbow LT min 3V IMPRESSION: Normal left elbow.
[2021-11-20] MEDS: Acetaminophen 325 MG TABLET 650 MG PO (09:28)
[2021-11-20 09:29] VITALS: BP 129/74; PULSE 84; RESP 16; TEMP 36.6; O2SAT 100; BMI 23.8
[2021-11-20 12:18] VITALS: BP 128/71; PULSE 81; RESP 18; TEMP 36.8; O2SAT 98
--- NOTE | 2021-11-20 12:23 | PC.NURSE ---
fell down a bunch of stairs this morning, felt dizzy after falling. Tylenol given in triage with no relief noted
[2021-11-20] MEDS: Ketorolac Tromethamine 30 MG/ML VIAL IM (12:58)
--- NOTE | 2021-11-20 13:22 | ED.EXTPRO ---
HPI - Extremity Problem General Chief complaint: Extremity Injury, Upper Stated complaint: Stone in gallbladder Time Seen by Provider: 11/20/21 12:28 Source: patient Mode of arrival: ambulatory History of Present Illness HPI Narrative: 30-year-old female with a past medical history of anxiety, depression, migraine headaches, biliary colic, presenting to the ED complaining of left arm pain s/p some mechanical trip and fall down the stairs this morning. Admits to falling down about 10-15 stairs, denies symptoms prior to fall including headache, CP/SOB. Denies head injury or LOC or taking anticoagulation. Denies neck/back pain, numbness, tingling, weakness Complaint: extremity pain Onset (ago): hour(s) Related Data Previous Rx's Medication Instructions Recorded acetaminophen 500 mg tablet 500 mg PO Q6H PRN fever or pain 11/20/21 (Tylenol Extra Strength) #14 tabs cyclobenzaprine 5 mg tablet 5 mg PO Q8H PRN pain (scale score 11/20/21 7-10) 5 days #14 tabs lidocaine 5 % topical patch 1 patch topical DAILY PRN pain #30 11/20/21 (Lidoderm) ea naproxen 500 mg tablet 500 mg PO BID PRN pain 10 days #20 11/20/21 tabs Allergies Allergy/AdvReac Type Severity Reaction Status Date / Time iodine [IODINE] Allergy Unknown ANGIOEDEMA Verified 10/06/21 15:09 SEAFOOD Allergy Unknown ANGIOEDEMA Uncoded 09/30/21 14:59 Review of Systems Review of Systems: Constitutional: No Fever, No Chills ENT/Mouth: No Ear Pain, No Nasal Congestion, No sore throat, No Rhinorrhea, No Swallowing Difficulty Cardiovascular: No Chest Pain, No SOB Respiratory: No Cough, No Sputum, No Wheezing Gastrointestinal: No Nausea, No Vomiting, No Abdominal pain Genitourinary: No Dysuria, No Urinary Frequency, No Hematuria, No Urinary Incontinence/retention, No Urgency, No Flank Pain Musculoskeletal: + joint pain, No Myalgias, No Joint Swelling Skin: No Skin Lesions, No rash Neuro: No Weakness, No Numbness, No Paresthesias, no head trauma, no LOC Yes all other systems are reviewed and are negative Constitutional: Constitutional: Reports as per [facility] Past Medical History Attestation statement: The following information was validated with the patient. Medical History Anxiety and depression Coccyx pain Migraine headache Surgical History No pertinent past surgical history Family History Family History Mother Cancer Diabetes Osteoporosis Father No problems noted. Other Substance use disorder Social History Social History Housing: Apartment Alcohol intake: never Patient Tobacco Use Status: Current everyday Tobacco user Tobacco use type: Cigarette Cigarette Packs Per Day: 1 Cigarettes Per Day: 20 Smoked in Last 30 Days: Yes e-Cigarette/Vaping Use: Never Used Second Hand Smoke Exposure: Yes Use of substances other than those prescribed or required for medical reasons: No Advance Directives: No service: No Current occupational status: unemployed Cognitive needs: No Hearing needs: No Vision needs: No Physical Exam Vital Signs: Vital Signs: Last Vital Signs Temp 98.2 F 11/20/21 12:18 Pulse 81 11/20/21 12:18 Resp 18 11/20/21 12:18 BP 128/71 11/20/21 12:18 Pulse Ox 98 11/20/21 12:18 O2 Del Method 11/20/21 12:18 BMI result Body Mass Index 23.8 Const: General: cooperative, healthy appearing and no acute distress Orientation/consciousness: patient oriented x3 Limitations: no limitations HEENT: Head: Yes normal to inspection and Yes atraumatic Ears: hearing grossly normal bilaterally General nose exam: Normal external nose present Face and sinus: Yes normal facial exam Eyes: General: appearance normal, both eyes and all related structures EOM: EOMs intact bilaterally Neck: Other: No midline cervical spinous tenderness Neck: Yes normal visual inspection and Yes no meningeal signs Resp: Effort & Inspection: normal respiratory effort and no respiratory distress Auscultation: clear to auscultation bilaterally, no crackles, no rales and no rhonchi Cardio: Rate: regular rate Heart sounds: S1 normal heart sound present and S2 normal heart sound present Peripheral pulses: radial pulses present and ulnar radial pulses present GI: Inspection: Yes normal to inspection Palpation (GI): Soft to palpation, nontender, no guarding and not rigid : General: Yes no CVA tenderness Back/Spine/Pelvis: Other: No midline thoracic/lumbar spinous tenderness/step-off or deformity Back: no CVA tenderness Skin: Rashes: no rashes Wounds: no wounds Neuro: General: patient oriented x3, gait normal, tone normal, moves all extremities, no meningeal signs and no focal motor deficits Gait exam (Neuro): Normal gait present Extrem: Other: Left shoulder/upper arm with diffuse tenderness, no appreciable deformity. Left elbow also with tenderness to palpation. Decreased ROM to shoulder and elbow secondary to pain. Pronation/supination intact. Wrist/hand nontender. Neurovascular intact distally, sensation intact to light touch. No overlying cellulitis/warm Course Course Course Narrative: XR shoulder LT min 2V/XR humerus LT IMPRESSION: *? Normal left shoulder. *? Normal left humerus. No evidence of fracture or malalignment. XR elbow LT min 3V IMPRESSION: Normal left elbow. >> patient placed in sling for comfort/stability. Recommended rest, ice, NSAIDs, and orthopedic follow-up as needed Results discussed with patient including worrisome signs and symptoms and strict return precautions, and when to return to the emergency department. They verbalized understanding and feel safe for discharge at this time. MDM - Extremity (Nontraumatic) MDM Narrative Medical decision making narrative: 30-year-old female with a past medical history of anxiety, depression, migraine headaches, biliary colic, presenting to the ED complaining of left arm pain s/p some mechanical trip and fall down the stairs this morning. On exam vital signs stable, NAD, nontoxic appearing, physical exam as above with left arm tenderness and decreased ROM secondary to pain. No appreciable deformity. Neurovascularly intact. No evidence of infection Plan: X-rays Medical Records Attestation: I reviewed the patient's medical records. Lab Data Attestation: I reviewed the patient's lab results. Discharge Plan Discharge Clinical Impression: Arm pain, left Patient Disposition: Home, Self-Care Instructions: Arm Pain (ED) Additional Instructions: Your x-rays do not show any fractures. you likely sprained your arm. Naproxen as an anti-inflammatory/pain medication, take with food. Additionally take Tylenol. Flexeril as a muscle relaxer, take at night as it makes you drowsy, do not drive, drink alcohol, or operate machinery while taking Ice painful area. Follow up with her doctor Return to the ED if symptoms persist or worsen/pain becomes unbearable area looks infected Lesvia radiograf?as no muestran ninguna fractura. es probable que te hayas torcido el brazo. Naproxeno wanda medicamento antiinflamatorio/analg?sico, t?flower con alimentos. Adem?s, tome Tylenol. Flexeril wanda relajante muscular, t?flower por la noche ya que lo adormece, no maneje, raoul alcohol ni opere maquinaria mientras angie Hielo en la shay dolorosa. Seguimiento con maier m?dico Regrese al servicio de urgencias si los s?ntomas persisten o empeoran/el dolor se vuelve insoportable. El ?julieta parece estar infectada. Prescriptions: New acetaminophen [Tylenol Extra Strength] 500 mg tablet 500 mg PO Q6H PRN (Reason: fever or pain) Qty: 14 0RF lidocaine [Lidoderm] 5 % adhesive patch,medicated 1 patch topical DAILY MDD remove after 12 hours PRN (Reason: pain) Qty: 30 0RF Rx Instructions: leave on most painful area for up to 12 hrs naproxen 500 mg tablet 500 mg PO BID PRN (Reason: pain) 10 Days Qty: 20 0RF cyclobenzaprine 5 mg tablet 5 mg PO Q8H PRN (Reason: pain (scale score 7-10)) 5 Days Qty: 14 0RF Referrals: Irene Combs MD [Primary Care Provider] - 5 days [facility] [place] [facility] [Provider Group] - 10 days (as needed) Stand Alone Forms: Work/School Release Print Language: Uruguayan
== END 2021-11-20 14:01 | disposition home or self-care (01) ==
PROVIDERS: Emergency Provider Emergency Medicine; PCP Internal Medicine
DX: M79.602 Pain in left arm (principal); Z91.81 History of falling
CPT/HCPCS: 73030; 73060; 73080; 96372; 99284; J1885

== ENCOUNTER 2021-12-08 16:22 | Emergency (ER) | payer OTHER, SELFPAY ==
[2021-12-08 16:55] VITALS: BP 105/59; PULSE 81; RESP 18; TEMP 36.1; O2SAT 100; BMI 24.7
[2021-12-08] MEDS: LORazepam 1 MG TABLET 2 MG PO (18:47)
[2021-12-08] MEDS: Ketorolac Tromethamine 30 MG/ML VIAL IM (18:47)
[2021-12-08] MEDS: oxyCODONE HCl Immed Release 5 MG TABLET PO (19:15)
[2021-12-08] MEDS: Lidocaine HCl 1 % MPF 2 ML VIAL INFILTRATI ×4 (19:16→19:17)
--- NOTE | 2021-12-08 19:31 | ED.GENADULT ---
HPI - General Adult General Chief complaint: Skin/Abscess/Foreign Body Stated complaint: abscess on private area Time Seen by Provider: 12/08/21 18:08 Source: patient Mode of arrival: ambulatory Limitations: no limitations History of Present Illness HPI narrative: Radio female presents to ED for left vaginal labia pain. Patient states left vaginal pain and swollen. Patient states history of Bartholin abscess cyst. Patient states this has been occurring for the past 5 days and follow-up with OBGYN tomorrow. Patient states no other complaints Related Data Previous Rx's Medication Instructions Recorded acetaminophen 500 mg tablet 500 mg PO Q6H PRN fever or pain 11/20/21 (Tylenol Extra Strength) #14 tabs cyclobenzaprine 5 mg tablet 5 mg PO Q8H PRN pain (scale score 11/20/21 7-10) 5 days #14 tabs lidocaine 5 % topical patch 1 patch topical DAILY PRN pain #30 11/20/21 (Lidoderm) ea naproxen 500 mg tablet 500 mg PO BID PRN pain 10 days #20 11/20/21 tabs cephalexin 500 mg capsule 500 mg PO QID 7 days #28 caps 12/08/21 doxycycline hyclate 100 mg capsule 100 mg PO BID 7 days #14 caps 12/08/21 ketorolac 10 mg tablet 10 mg PO QID PRN pain 5 days #20 12/08/21 tabs Allergies Allergy/AdvReac Type Severity Reaction Status Date / Time iodine [IODINE] Allergy Unknown ANGIOEDEMA Verified 10/06/21 15:09 SEAFOOD Allergy Unknown ANGIOEDEMA Uncoded 09/30/21 14:59 Review of Systems Review of Systems: Left vaginal swelling Yes all other systems are reviewed and are negative [facility] Past Medical History Medical History Anxiety and depression Coccyx pain Migraine headache Surgical History No pertinent past surgical history Family History Family History Mother Cancer Diabetes Osteoporosis Father No problems noted. Other Substance use disorder Social History Social History Housing: Apartment Alcohol intake: never Patient Tobacco Use Status: Current everyday Tobacco user Tobacco use type: Cigarette Cigarette Packs Per Day: 1 Cigarettes Per Day: 20 e-Cigarette/Vaping Use: Never Used Second Hand Smoke Exposure: Yes Advance Directives: No Advance Directives Information Provided: No service: No Current occupational status: unemployed Cognitive needs: No Hearing needs: No Vision needs: No Physical Exam ED Vital Signs: Vital Signs - 24 hr 12/08/21 16:55 Temperature 96.9 F Pulse Rate 81 Respiratory Rate 18 Blood Pressure 105/59 L Pulse Oximetry 100 Oxygen Delivery Method Room Air BMI result Body Mass Index 24.7 Const General: cooperative, healthy appearing, comfortable, no acute distress, well developed, alert, awake and Physically active Orientation/consciousness: patient oriented x3 HENMT Head: Yes normal to inspection, Yes No palpable skull fracture present, Yes normocephalic, Yes atraumatic and No abrasion Eyes General: appearance normal, both eyes and all related structures Neck Neck: Yes normal visual inspection, Yes full ROM, Yes no lymphadenopathy, Yes no meningeal signs, Yes trachea midline, Yes supple, No anterior neck swelling and No tender Chest Chest palpation & inspection: normal inspection of the chest and normal palpation of entire chest wall Resp Effort & Inspection: normal respiratory effort and able to speak in complete sentences Auscultation: clear to auscultation bilaterally Cardio Jugular venous distension: no JVD Heart sounds: S1 normal heart sound present and S2 normal heart sound present GI Inspection: Yes normal to inspection and No abdominal wall ecchymosis Palpation (GI): Soft to palpation, not firm, nontender, no guarding and not rigid Other: General: No CVA tenderness and Yes no CVA tenderness Back/Spine/Pelvis Back: no CVA tenderness, No CVA tenderness and No back tenderness Skin General skin exam: no rashes or lesions noted and elasticity normal Neuro General: patient oriented x3, gait normal, no meningeal signs and CN's II-XI intact bilaterally Cranial nerves: Yes CN's II-XII intact bilaterally Extrem General: Yes normal to inspection and Yes full ROM Psych Appearance: grossly normal, well kempt and not disheveled Course Course Course Narrative: Case discussed with Dr. Duckworth. Reevaluation(s) Reevaluation #1: Patient given Toradol, Ativan oxycodone to help for pain and relax the procedure. Area was clean with Betadine iodine. Lidocaine 6 mL was used for procedure. Injection was placed at 2 areas on the labia most fluctuant. Size 11 blade was used to make the 1st incision an large anounts of pus was drained. Patient cannot tolerate longer the procedure. Patient refused Dr. Duckworth to do another incision and also to place a tube to tie off to help with abscess but patient refused. Dr. Duckworth explained if the tube was not placed abscess will reaccumulate and patient will come back to the ER. Patient's refused procedure and no longer proceed and accepts risk. Patient will be discharged antibiotics. Patient has follow-up with OBGYN tomorrow. patient uptodate with tetanus Time: 19:37 Medical Decision Making MDM Narrative Medical decision making narrative: Bartholoin cysts Discharge Plan Discharge Clinical Impression: Bartholin cyst Patient Disposition: Home, Self-Care Instructions: Bartholin Cyst (ED) Additional Instructions: Please follow-up with your OBGYN appointment tomorrow. Return to the ED immediately for increased pain, swelling, fever, chills, profuse drainage, or any other concerning symptoms. Prescriptions: New ketorolac 10 mg tablet 10 mg PO QID PRN (Reason: pain) 5 Days Qty: 20 0RF Rx Instructions: Given toradol 30mg IM in the ED doxycycline hyclate 100 mg capsule 100 mg PO BID 7 Days Qty: 14 0RF cephalexin 500 mg capsule 500 mg PO QID 7 Days Qty: 28 0RF No Action acetaminophen [Tylenol Extra Strength] 500 mg tablet 500 mg PO Q6H PRN (Reason: fever or pain) Qty: 14 0RF lidocaine [Lidoderm] 5 % adhesive patch,medicated 1 patch topical DAILY MDD remove after 12 hours PRN (Reason: pain) Qty: 30 0RF Rx Instructions: leave on most painful area for up to 12 hrs naproxen 500 mg tablet 500 mg PO BID PRN (Reason: pain) 10 Days Qty: 20 0RF cyclobenzaprine 5 mg tablet 5 mg PO Q8H PRN (Reason: pain (scale score 7-10)) 5 Days Qty: 14 0RF Stand Alone Forms: Work/School Release Interventions: ED Discharge Assessment Last Done: 12/08/21 19:57 Discharge Date/Time: 12/08/21 19:57 Print Language: Arabic
--- NOTE | 2021-12-08 19:56 | PC.NURSE ---
Discharge instructions provided to pt by [facility].
== END 2021-12-08 19:57 | disposition home or self-care (01) ==
PROVIDERS: Emergency Provider Emergency Medicine; PCP Internal Medicine
DX: N75.0 Cyst of Bartholin's gland (principal); F19.90 Other psychoactive substance use, unspecified, uncomplicated; F17.210 Nicotine dependence, cigarettes, uncomplicated
CPT/HCPCS: 56420; 96372; 99283; 99284; J1885

== ENCOUNTER 2022-02-03 09:49 | Inpatient (IN) | payer OTHER, SELFPAY ==
--- NOTE | ~2022-02-03 | MR_ITS ---
EXAMINATION: MR ABDOMEN WITHOUT CONTRAST CLINICAL INFORMATION: Pancreatitis, transaminitis. COMPARISON: CT scan of the abdomen and pelvis dated 02/03/2022 and 08/22/2021. TECHNIQUE: MR abdomen is performed without gadolinium contrast. MRCP was performed with 3-D reformatted images obtained on a separate workstation. FINDINGS: LUNG BASES: The visualized lung bases are unremarkable. LIVER, GALLBLADDER, AND BILIARY TREE: No hepatic abnormality. Gallbladder is decompressed containing gallstones without surrounding abnormality. PANCREAS: Mild interstitial fluid signal seen in the pancreas, most pronounced in the body without pancreatic ductal dilatation. Mild peripancreatic infiltrative changes are seen without focal collection. Mild peritoneal ascites. SPLEEN: Unremarkable. ADRENAL GLANDS: Unremarkable. KIDNEYS AND URETERS: The kidneys are normal in size and shape. No hydronephrosis. No perinephric stranding. GASTROINTESTINAL TRACT: The stomach, visualized small bowel and visualized colon are unremarkable. ABDOMINAL WALL: No significant hernia is appreciated. LYMPH NODES: No lymphadenopathy. VASCULAR: Unremarkable. OSSEOUS STRUCTURES: Unremarkable. MR/MR MRCP IMPRESSION: 1. Pancreatic findings most consistent with mild pancreatitis with associated infiltrative changes and mild peritoneal ascites. No evidence for necrosis or pseudocyst formation. 2. Cholelithiasis without evidence for acute cholecystitis.
--- NOTE | ~2022-02-03 | CT_ITS ---
EXAMINATION: CT ABDOMEN AND PELVIS WITH CONTRAST CLINICAL INFORMATION: Right-sided abdominal pain, nausea and vomiting COMPARISON: Previous CT of the abdomen and pelvis and abdominal ultrasound August 2021 TECHNIQUE: Multidetector volumetric images were obtained from the superior aspect of the liver through the pubic symphysis following administration 85 mL of Omnipaque 350 intravenous contrast. Sagittal and coronal reformatted images were obtained on the technologist's workstation. Oral contrast: Yes This CT examination was performed using dose optimization techniques as appropriate, variously including the following: *Automated exposure control *Adjustment of mA and/or kV according to patient size (this includes techniques or standardized protocols for targeted exams where dose is matched to indication/reason for exam; i.e. extremities or head) *Use of iterative reconstruction technique DLP: 353 mGy-cm FINDINGS: LUNG BASES: The visualized lung bases are unremarkable. LIVER, GALLBLADDER, AND BILIARY TREE: The liver is normal in size, shape, and attenuation. No focal hepatic lesion or biliary ductal dilatation is present. There are gallstones in the gallbladder. The gallbladder is otherwise unremarkable. PANCREAS: The pancreas appears slightly prominent, particularly the tail measuring 2 cm in AP dimension. There is fluid seen surrounding the pancreas. There is fluid seen in the bilateral anterior pararenal fascia. There is fluid seen in both paracolic gutters. There is a small amount of fluid seen in the pelvis. There is a small amount of fluid seen surrounding the stomach and spleen. The pancreas is otherwise normal. The pancreas enhances normally. The main pancreatic duct does not appear dilated. SPLEEN: Unremarkable. ADRENAL GLANDS: Unremarkable. KIDNEYS AND URETERS: The kidneys are normal in size, shape, and attenuation. No hydronephrosis, hydroureter, or calculi seen. No perinephric stranding. BLADDER: Unremarkable. GASTROINTESTINAL TRACT: The small and large bowel are unremarkable. The appendix is unremarkable. ABDOMINAL WALL: No significant hernia is appreciated. LYMPH NODES: Normal. VASCULAR: Unremarkable. PELVIC VISCERA: Unremarkable. OSSEOUS STRUCTURES: Unremarkable. CT/CT abdomen pelvis w IV con IMPRESSION: Prominent pancreas, particularly the tail of the pancreas. The pancreas enhances normally and is otherwise unremarkable. Small amount of ascites. Mild acute interstitial pancreatitis should be considered. Correlation with amylase and lipase recommended. Small amount of generalized ascites. Gallstones. Fleischner guidelines were followed.
[2022-02-03 09:50] VITALS: BP 124/68; PULSE 100; RESP 19; TEMP 36.6; O2SAT 100; BMI 24.7
[2022-02-03 10:15] VITALS: BP 112/68; PULSE 75; RESP 16; O2SAT 100
--- NOTE | 2022-02-03 10:39 | ED_ITS ---
HPI - Abdominal Pain General Chief Complaint: Abdominal Pain Stated Complaint: ? Gallbladder Stones Time Seen by Provider: 02/03/22 10:25 Source: patient and EMS Mode of arrival: EMS History of Present Illness HPI narrative: 31-year-old female with a past medical history of anxiety, depression, substance abuse, cholelithiasis, presenting to the ED complaining of RUQ abdominal pain, nausea, and vomiting since yesterday. Reports decreased p.o. intake. Denies fever, chills, diarrhea, dysuria/hematuria, suspicious food intake. Admits call Dr. Mckeon's office this morning was instructed to come to the ED MD elicited complaint: abdominal pain Onset (ago): day(s) Related Data Home Medications Medication Instructions Recorded Confirmed No Known Home Meds 02/03/22 02/03/22 Allergies Allergy/AdvReac Type Severity Reaction Status Date / Time iodine [IODINE] Allergy Severe ANGIOEDEMA Verified 02/03/22 13:27 SEAFOOD Allergy Severe ANGIOEDEMA Uncoded 02/03/22 13:27 Review of Systems Review of Systems Constitutional: No Fever, No Chills, No Fatigue, No Malaise ENT/Mouth: No Ear Pain, No Nasal Congestion, No sore throat, No Rhinorrhea, No Swallowing Difficulty Eyes: No Eye Pain, No Swelling, No Redness Cardiovascular: No Chest Pain, No SOB, No Dyspnea on Exertion, No Orthopnea, No Edema, No Palpitations Respiratory: No Cough, No Sputum, No Dyspnea Gastrointestinal: + Nausea, + Vomiting, No Diarrhea, No Constipation, + Abdominal pain Genitourinary: No irregular bleeding, No Dysuria, No Urinary Frequency, No Hematuria, No Urinary Incontinence/retention, No Flank Pain Musculoskeletal: No joint pain, No Myalgias, No Joint Swelling Skin: No Skin Lesions, No rash Neuro: No Weakness, No Numbness, No Dizziness, No Headache Yes all other systems are reviewed and are negative Constitutional: Reports as per [facility] Past Medical History Attestation statement: The following information was validated with the patient. Medical History Anxiety and depression Coccyx pain Migraine headache Surgical History No pertinent past surgical history Family History Family History Mother Cancer Diabetes Osteoporosis Father No problems noted. Other Substance use disorder Social History Social History Housing: Apartment Alcohol intake: never Patient Tobacco Use Status: Current everyday Tobacco user Tobacco use type: Cigarette Cigarette Packs Per Day: 1 Cigarettes Per Day: 20 Smoked in Last 30 Days: Yes e-Cigarette/Vaping Use: Never Used Second Hand Smoke Exposure: Yes Use of substances other than those prescribed or required for medical reasons: No Advance Directives: No Advance Directives Information Provided: Yes Patient : No service: No Current occupational status: unemployed Cognitive needs: No Hearing needs: No Vision needs: No Physical Exam ED Vital Signs: Vital Signs - 24 hr 02/03/22 09:50 02/03/22 10:15 02/03/22 12:00 Temperature 98 F 98.4 F Pulse Rate 100 75 75 Respiratory Rate 19 16 18 Blood Pressure 124/68 112/68 100/58 L Pulse Oximetry 100 100 100 Oxygen Delivery Method Room Air Room Air Room Air 02/03/22 14:36 Temperature Pulse Rate 72 Respiratory Rate 19 Blood Pressure 109/58 L Pulse Oximetry 100 Oxygen Delivery Method Room Air BMI result Body Mass Index 24.7 Const General: cooperative and no acute distress Orientation/consciousness: patient oriented x3 Limitations: no limitations HENMT Head: Yes normal to inspection and Yes atraumatic Ears: hearing grossly normal bilaterally General nose exam: Normal external nose present Face and sinus: Yes normal facial exam Eyes General: appearance normal, both eyes and all related structures EOM: EOMs intact bilaterally Neck Neck: Yes normal visual inspection and Yes no meningeal signs Resp Effort & Inspection: normal respiratory effort and no respiratory distress Auscultation: clear to auscultation bilaterally, no crackles, no rales, no rhonchi and no wheezes Cardio Rate: regular rate Heart sounds: S1 normal heart sound present and S2 normal heart sound present GI Inspection: Yes normal to inspection Palpation (GI): Soft to palpation, Tenderness to palpation present (GI) in the RLQ, in the RUQ and with rebound tenderness, no guarding and not rigid General: Yes no CVA tenderness Back/Spine/Pelvis Back: no CVA tenderness Skin Rashes: no rashes Wounds: no wounds Neuro General: patient oriented x3, tone normal and no meningeal signs Gait exam (Neuro): Normal gait present Extrem General: Yes normal to inspection Course Course Course Narrative: -1241--no leukocytosis, acute on chronically elevated bilirubins, AST and ALT. Lipase elevated to 314 -tox screen positive for fentanyl -Dr. Mckeon requesting MRCP as patient has acute pancreatitis on CT CT abdomen pelvis w IV con IMPRESSION: Prominent pancreas, particularly the tail of the pancreas. The pancreas enhances normally and is otherwise unremarkable. Small amount of ascites. Mild acute interstitial pancreatitis should be considered. Correlation with amylase and lipase recommended. Small amount of generalized ascites. Gallstones. ? Fleischner guidelines were followed. 8715--MR MRCP IMPRESSION: 1. Pancreatic findings most consistent with mild pancreatitis with associated infiltrative changes and mild peritoneal ascites. No evidence for necrosis or pseudocyst formation. 2. Cholelithiasis without evidence for acute cholecystitis >> patient admitted to surgical service for further management Medical Decision Making Medical Decision Making [facility] Narrative: 31-year-old female with a past medical history of anxiety, depression, substance abuse, cholelithiasis, presenting to the ED complaining of RUQ abdominal pain, nausea, and vomiting since yesterday. On exam vital signs stable, appears in pain, abdomen soft with RUQ/RLQ tenderness and guarding, no rebound, no CVA tenderness. Concern for acute cholecystitis vs pancreatitis vs appendicitis. Lower suspicion for diverticulitis/renal stone. Rule out other infectious etiology. Plan: Labs, UA, , drug screen, CT AP, IVF, symptomatic treatment, re- evaluated Differential Diagnosis Differential Diagnoses: The differential diagnosis associated with the presentation includes Admission/Observation Consideration of admission/observation: Escalation of care including admission/observation considered Consult Healthcare Provider Management of the patient was discussed with: Capacitor Repairer Lab Data [facility] Lab Attestation statement: I reviewed the patient's lab results. Result Diagrams: 02/03/22 11:05 02/03/22 11:06 Labs: Lab Results 02/03/22 02/03/22 02/03/22 Range/Units 10:59 10:59 10:59 WBC (4.8-10.8) X10*3/uL RBC (4.20-5.50) X10*6/uL Hgb (12.0-16.0) g/dl Hct (37.0-47.0) % MCV (80.0-98.0) fL MCH (27.0-33.0) pg MCHC (31.0-35.0) g/dl RDW (11.0-16.0) % Plt Count (160-400) X10*3/uL MPV (9.4-12.3) fL Immature Gran % (Auto) (0.0-0.4) % Neut % (Auto) (45-73) % Lymph % (Auto) (20-40) % Richardson % (Auto) (2-11) % Eos % (Auto) (0-4) % Baso % (Auto) (0-2) % Lymph # (Auto) (1.2-4.9) X10*3/uL Richardson # (Auto) (0.1-1.2) X10*3/uL Eos # (Auto) (0.0-0.4) X10*3/uL Baso # (Auto) (0.0-0.2) X10*3/uL Abs Immat Gran (auto) (0.00-0.03) X10*3/uL Absolute Neuts (auto) (2.0-8.3) x10*3/uL Absolute Nucleated RBC (0.0-0.012) X10*3/uL Nucleated RBC % (auto) (0.0-0.2) /100WBC PT (10.0-13.1) SEC INR (0.9-1.1) Sodium (135-145) mmol/L Potassium (3.3-5.1) mmol/L Chloride (96-108) mmol/L Carbon Dioxide (22-29) mmol/L Anion Gap (12-20) BUN (9-16) mg/dL Creatinine (0.5-1.4) mg/dL Estim Creat Clear Calc Estimated GFR Random Glucose (60-115) mg/dL Calcium (8.4-10.2) mg/dL Magnesium (1.6-2.6) mg/dL Total Bilirubin (0.0-1.0) mg/dL Direct Bilirubin (0.0-0.5) mg/dL AST (5-31) U/L ALT (0-31) U/L Alkaline Phosphatase (39-117) U/L Total Protein (6.5-8.0) g/dL Albumin (3.5-5.0) g/dL Lipase (8-78) U/L Urine Color Yellow Urine Appearance Clear Urine pH 6.5 (5.0-9.0) Ur Specific [place] 1.010 (1.005-1.025) Urine Protein Negative (Neg-Trace) mg/dL Urine Glucose (UA) Negative (Negative) mg/dL Urine Ketones Trace (Negative) mg/dL Urine Blood Negative (Negative) Urine Nitrite Negative (Negative) Ur Leukocyte Esterase Negative (Negative) Urine Test (NEGATIVE) Urine Opiates Screen (Not Detect) Urine Fentanyl Screen (Not Detect) Ur Barbiturates Screen (Not Detect) Ur Phencyclidine Scrn (Not Detect) Ur Amphetamines Screen (Not Detect) U Benzodiazepines Scrn (Not Detect) Urine Cocaine Screen (Not Detect) U Marijuana (THC) Screen (Not Detect) COVID-19 (MAYELIN) Negative (Negative) COVID-19 Clin Com See Note Influenza Type A (ROGE) Negative (Negative) Influenza Type B (ROGE) Negative (Negative) Influenza A & B Note See Note 02/03/22 02/03/22 02/03/22 Range/Units 10:59 10:59 11:05 WBC 10.6 (4.8-10.8) X10*3/uL RBC 4.80 (4.20-5.50) X10*6/uL Hgb 13.9 (12.0-16.0) g/dl Hct 41.3 (37.0-47.0) % MCV 86.0 (80.0-98.0) fL MCH 29.0 (27.0-33.0) pg MCHC 33.7 (31.0-35.0) g/dl RDW 13.2 (11.0-16.0) % Plt Count 285 (160-400) X10*3/uL MPV 9.5 (9.4-12.3) fL Immature Gran % (Auto) 0.2 (0.0-0.4) % Neut % (Auto) 77.5 H (45-73) % Lymph % (Auto) 16.9 L (20-40) % Richardson % (Auto) 4.8 (2-11) % Eos % (Auto) 0.4 (0-4) % Baso % (Auto) 0.2 (0-2) % Lymph # (Auto) 1.8 (1.2-4.9) X10*3/uL Richardson # (Auto) 0.5 (0.1-1.2) X10*3/uL Eos # (Auto) 0.0 (0.0-0.4) X10*3/uL Baso # (Auto) 0.0 (0.0-0.2) X10*3/uL Abs Immat Gran (auto) 0.02 (0.00-0.03) X10*3/uL Absolute Neuts (auto) 8.2 (2.0-8.3) x10*3/uL Absolute Nucleated RBC 0.000 (0.0-0.012) X10*3/uL Nucleated RBC % (auto) 0.0 (0.0-0.2) /100WBC PT (10.0-13.1) SEC INR (0.9-1.1) Sodium (135-145) mmol/L Potassium (3.3-5.1) mmol/L Chloride (96-108) mmol/L Carbon Dioxide (22-29) mmol/L Anion Gap (12-20) BUN (9-16) mg/dL Creatinine (0.5-1.4) mg/dL Estim Creat Clear Calc Estimated GFR Random Glucose (60-115) mg/dL Calcium (8.4-10.2) mg/dL Magnesium (1.6-2.6) mg/dL Total Bilirubin (0.0-1.0) mg/dL Direct Bilirubin (0.0-0.5) mg/dL AST (5-31) U/L ALT (0-31) U/L Alkaline Phosphatase (39-117) U/L Total Protein (6.5-8.0) g/dL Albumin (3.5-5.0) g/dL Lipase (8-78) U/L Urine Color Urine Appearance Urine pH (5.0-9.0) Ur Specific [place] (1.005-1.025) Urine Protein (Neg-Trace) mg/dL Urine Glucose (UA) (Negative) mg/dL Urine Ketones (Negative) mg/dL Urine Blood (Negative) Urine Nitrite (Negative) Ur Leukocyte Esterase (Negative) Urine Test NEGATIVE (NEGATIVE) Urine Opiates Screen Not Detected (Not Detect) Urine Fentanyl Screen POSITIVE H (Not Detect) Ur Barbiturates Screen Not Detected (Not Detect) Ur Phencyclidine Scrn Not Detected (Not Detect) Ur Amphetamines Screen Not Detected (Not Detect) U Benzodiazepines Scrn Not Detected (Not Detect) Urine Cocaine Screen Not Detected (Not Detect) U Marijuana (THC) Screen Not Detected (Not Detect) COVID-19 (MAYELIN) (Negative) COVID-19 Clin Com Influenza Type A (ROGE) (Negative) Influenza Type B (ROGE) (Negative) Influenza A & B Note 02/03/22 02/03/22 Range/Units 11:06 11:06 WBC (4.8-10.8) X10*3/uL RBC (4.20-5.50) X10*6/uL Hgb (12.0-16.0) g/dl Hct (37.0-47.0) % MCV (80.0-98.0) fL MCH (27.0-33.0) pg MCHC (31.0-35.0) g/dl RDW (11.0-16.0) % Plt Count (160-400) X10*3/uL MPV (9.4-12.3) fL Immature Gran % (Auto) (0.0-0.4) % Neut % (Auto) (45-73) % Lymph % (Auto) (20-40) % Richardson % (Auto) (2-11) % Eos % (Auto) (0-4) % Baso % (Auto) (0-2) % Lymph # (Auto) (1.2-4.9) X10*3/uL Richardson # (Auto) (0.1-1.2) X10*3/uL Eos # (Auto) (0.0-0.4) X10*3/uL Baso # (Auto) (0.0-0.2) X10*3/uL Abs Immat Gran (auto) (0.00-0.03) X10*3/uL Absolute Neuts (auto) (2.0-8.3) x10*3/uL Absolute Nucleated RBC (0.0-0.012) X10*3/uL Nucleated RBC % (auto) (0.0-0.2) /100WBC PT 14.4 H (10.0-13.1) SEC INR 1.2 H (0.9-1.1) Sodium 140 (135-145) mmol/L Potassium 3.8 (3.3-5.1) mmol/L Chloride 104 (96-108) mmol/L Carbon Dioxide 27 (22-29) mmol/L Anion Gap 13 (12-20) BUN 9 (9-16) mg/dL Creatinine 0.71 (0.5-1.4) mg/dL Estim Creat Clear Calc 98.9 Estimated GFR > 60 Random Glucose 112 (60-115) mg/dL Calcium 9.3 (8.4-10.2) mg/dL Magnesium 2.0 (1.6-2.6) mg/dL Total Bilirubin 2.5 H (0.0-1.0) mg/dL Direct Bilirubin 0.7 H (0.0-0.5) mg/dL AST 61 H (5-31) U/L ALT 166 H (0-31) U/L Alkaline Phosphatase 100 (39-117) U/L Total Protein 6.2 L (6.5-8.0) g/dL Albumin 4.0 (3.5-5.0) g/dL Lipase 314 H (8-78) U/L Urine Color Urine Appearance Urine pH (5.0-9.0) Ur Specific [place] (1.005-1.025) Urine Protein (Neg-Trace) mg/dL Urine Glucose (UA) (Negative) mg/dL Urine Ketones (Negative) mg/dL Urine Blood (Negative) Urine Nitrite (Negative) Ur Leukocyte Esterase (Negative) Urine Test (NEGATIVE) Urine Opiates Screen (Not Detect) Urine Fentanyl Screen (Not Detect) Ur Barbiturates Screen (Not Detect) Ur Phencyclidine Scrn (Not Detect) Ur Amphetamines Screen (Not Detect) U Benzodiazepines Scrn (Not Detect) Urine Cocaine Screen (Not Detect) U Marijuana (THC) Screen (Not Detect) COVID-19 (MAYELIN) (Negative) COVID-19 Clin Com Influenza Type A (ROGE) (Negative) Influenza Type B (ROGE) (Negative) Influenza A & B Note Independent Interpretation I performed an independent interpretation of an: CT Scan Radiology Impression Discussion of test interpretation with radiology: I have reviewed the radiologist's reading. External Record Review External record reviewed: Office record, Prior outpatient labs and Prior outpatient radiology Social Determinants Patient?s care significantly limited by Social Determinants of Health including: Alcoholism and drug addiction in family Medications Administered Discontinued Medications Generic Name Dose Route Start Last Admin Trade Name Ildefonso PRN Reason Stop Dose Admin Sodium Chloride 1,000 mls @ 999 mls/hr 02/03/22 10:45 02/03/22 12:31 Ns IV 02/03/22 11:45 Infused .Q1H1M JORGE Infusion Sodium Chloride 1,000 mls @ 999 mls/hr 02/03/22 12:45 02/03/22 14:00 Ns IV 02/03/22 13:45 Infused .Q1H1M JORGE Infusion Iohexol 85 ml 02/03/22 12:24 02/03/22 12:25 Iohexol 350 Mg/Ml 100 Ml Infus..Btl IV 02/03/22 12:25 85 ml ONCE ONE Administration Ketorolac Tromethamine 15 mg 02/03/22 10:39 02/03/22 11:16 Ketorolac Tromethamine 15 Mg/Ml Vial IVPUSH 02/03/22 10:40 15 mg ONCE ONE Administration Ketorolac Tromethamine 15 mg 02/03/22 14:46 02/03/22 14:59 Ketorolac Tromethamine 15 Mg/Ml Vial IVPUSH 02/03/22 14:47 15 mg ONCE ONE Administration Ondansetron HCl 4 mg 02/03/22 10:39 02/03/22 11:16 Ondansetron Hcl 4 Mg/2 Ml Vial IVPUSH 02/03/22 10:40 4 mg ONCE ONE Administration Discharge Plan Discharge Clinical Impression: Acute pancreatitis Patient Disposition: Admitted As Inpatient Prescriptions: No Action No Known Home Meds
--- NOTE | 2022-02-03 10:40 | ECG_ITS ---
Test Reason : clearance Blood Pressure : / mmHG Vent. Rate : 069 BPM Atrial Rate : 069 BPM P-R Int : 150 ms QRS Dur : 082 ms QT Int : 368 ms P-R-T Axes : 054 098 055 degrees QTc Int : 394 ms Normal sinus rhythm Normal EKG When compared with ECG of 23-JUL-2017 09:21, No significant change was found Referred By: Sabrina España Electronically Signed By:NALINI BROCK
[2022-02-03] MEDS: 0.9 % Sodium Chloride 1,000 ML 999 ML IV ×2 (11:13→12:55)
[2022-02-03 11:14] LABS: MANUAL DIFF FLAG NO
[2022-02-03 11:16] LABS: Basophils Percent Auto 0.2 % (0-2); Eosinophils Percent Auto 0.4 % (0-4); Hematocrit 41.3 % (37.0-47.0); Hemoglobin 13.9 g/dl (12.0-16.0); Imm Gran Abs Auto 0.02 X10*3/uL (0.00-0.03); Imm Gran Pct Auto 0.2 % (0.0-0.4); Lymphocytes Absolute Auto 1.8 X10*3/uL (1.2-4.9); Lymphocytes Percent Auto 16.9 % (20-40); Mean Corpuscular HGB Conc 33.7 g/dl (31.0-35.0); Mean Platelet Volume 9.5 fL (9.4-12.3); Monocytes Absolute Auto 0.5 X10*3/uL (0.1-1.2); Monocytes Percent Auto 4.8 % (2-11); Neutrophils Absolute Auto 8.2 x10*3/uL (2.0-8.3); Neutrophils Percent Auto 77.5 % (45-73); Platelet Count 285 X10*3/uL (160-400); Red Cell Distribution Width 13.2 % (11.0-16.0); White Blood Count 10.6 X10*3/uL (4.8-10.8)
[2022-02-03] MEDS: Ketorolac Tromethamine 15 MG/ML VIAL IVPUSH ×2 (11:16→14:59)
[2022-02-03] MEDS: ondansetron HCL 4 MG/2 ML VIAL IVPUSH (11:16)
--- NOTE | 2022-02-03 11:18 | PC.NURSE ---
patient a&ox3, c/0 12/01 abdominal pain, iv inserted, labs drawn, nasal swab performed, pt medicated per order, call valadze within reach, will continue to monitor
[2022-02-03 11:19] LABS: Appearance Urine Clear; Color Urine Yellow; Glucose Urine UA Negative (Negative); Leukocyte Esterase Urine Negative (Negative); Nitrite Urine Negative (Negative); PH 6.5 (5.0-9.0); Urine Blood Negative (Negative); Urine Ketones Trace mg/dL (Negative); Urine Protein Negative (Neg-Trace)
[2022-02-03 11:25] LABS: INTERNATIONAL NORM RATIO 1.2 (0.9-1.1); Prothrombin Time 14.4 SEC (10.0-13.1)
[2022-02-03 11:27] LABS: Amphetamine Screen Urine Not Detected (Not Detect); Barbiturates, Urine Not Detected (Not Detect); Benzodiazepines Screen Urine Not Detected (Not Detect); Cannabinoid Screen Urine Not Detected (Not Detect); Cocaine Screen Urine Not Detected (Not Detect); Fentanyl, urine POSITIVE (Not Detect); Opiate Screen Urine Not Detected (Not Detect); Phencyclidine Screen Urine Not Detected (Not Detect)
--- NOTE | 2022-02-03 11:27 | PHA.MEDREC ---
Pharmacy Consult ? Medication Reconciliation Pharmacy has completed the medication reconciliation. Patient reported she takes oxycodone, when asked which pharmacy she stated it's not from a pharmacy. Page Johnson, AlvarezD
[2022-02-03 11:30] LABS: IDNOW Serial# 16C4AD1C
[2022-02-03 11:31] LABS: COVID-19 Test Negative (Negative)
[2022-02-03 11:42] LABS: Alanine Aminotransferase 166 U/L (0-31); Alkaline Phosphatase 100 U/L (39-117); Anion Gap 13 (12-20); Aspartate Amino Transferase 61 U/L (5-31); Bilirubin Direct 0.7 mg/dL (0.0-0.5); Bilirubin Total 2.5 mg/dL (0.0-1.0); Blood Urea Nitrogen 9 mg/dL (9-16); Calcium 9.3 mg/dL (8.4-10.2); Carbon Dioxide 27 mmol/L (22-29); Chloride 104 mmol/L (96-108); Creatinine Clr Calc Pharmacy 98.9; Estimated Glomerular Filt Rate > 60; Glucose Random 112 mg/dL (60-115); Potassium 3.8 mmol/L (3.3-5.1); Sodium 140 mmol/L (135-145); Total Protein 6.2 g/dL (6.5-8.0)
[2022-02-03 11:44] LABS: IDNOW Serial# 55D5AD1C; Influenza A Negative (Negative); Influenza B2 Negative (Negative)
[2022-02-03 11:49] LABS: Lipase 314 U/L (8-78)
[2022-02-03 12:00] VITALS: BP 100/58; PULSE 75; RESP 18; TEMP 36.9; O2SAT 100
[2022-02-03 12:14] LABS: UPreg QC Valid YES; Urine Pregnancy NEGATIVE (NEGATIVE)
[2022-02-03] MEDS: iohexoL 350 MG/ML 100 ML INFUS..BTL 85 ML IV (12:25)
--- NOTE | 2022-02-03 12:32 | PC.NURSE ---
patient a&ox3, vss, pt states she has 5/10 abd pain but it has decreased since being medicated, pt nausea resolved as well, call valadez within reach, will continue to monitor
--- NOTE | 2022-02-03 13:27 | PC.NURSE ---
mri screening form completed
[2022-02-03 14:36] VITALS: BP 109/58; PULSE 72; RESP 19; O2SAT 100
--- NOTE | 2022-02-03 15:19 | PC.NURSE ---
patient a&ox3, returned from imaging, pt medicated for 6/10 abd pain, call valadez within reach, will continue to monitor
--- NOTE | 2022-02-03 15:54 | PM.HPGS ---
History of Present Illness History of Present Illness Date of Service: 02/03/22 Chief complaint: ? Gallbladder Stones Narrative: Lisa Damon is a 31 year old female who presented to the emergency department in August. She has a history of fentanyl use. Due to her ongoing GI complaints, the patient had an abdominal ultrasound that showed gallstones, but her prior CT demonstrated enteritis and she was having diarrhea. When she was evaluated in the office, her symptoms were suggestive of gastritis and she was scheduled to be seen by GI, however when she tested positive for fentanyl, her EGD was canceled and rescheduled. She has not followed up with GI. She reports that she started to develop abdominal pain yesterday and consequently obtained which she believes his OxyContin from a friend and took 2 doses yesterday. She reports epigastric pain associated with nausea and a gnawing sensation. She denies any trauma or diarrhea. She notes she is continuing to smoke. To date, she contacted my office today requesting to be seen to have her gallbladder removed. Via office staff, she reported severe left-sided abdominal pain, and was referred to the emergency department for appropriate evaluation and management which could not be done in the office. The patient states that she obtained oxycodone from a friend and is only taken 2 doses yesterday. Review of Systems Review of Systems: Yes all other systems are reviewed and are negative Constitutional: Constitutional: Reports as per [facility] Past Medical History Medical History Anxiety and depression Coccyx pain Migraine headache Family History Family History Mother Cancer Diabetes Osteoporosis Father No problems noted. Other Substance use disorder Surgical History Surgical History No pertinent past surgical history Social History Social History Housing: Apartment Alcohol intake: never Patient Tobacco Use Status: Current everyday Tobacco user Tobacco use type: Cigarette Cigarette Packs Per Day: 1 Cigarettes Per Day: 20 Smoked in Last 30 Days: Yes e-Cigarette/Vaping Use: Never Used Second Hand Smoke Exposure: Yes Use of substances other than those prescribed or required for medical reasons: No Advance Directives: No Advance Directives Information Provided: Yes Patient : No service: No Current occupational status: unemployed Cognitive needs: No Hearing needs: No Vision needs: No Meds Allergies Allergy/AdvReac Type Severity Reaction Status Date / Time iodine [IODINE] Allergy Severe ANGIOEDEMA Verified 02/03/22 13:27 SEAFOOD Allergy Severe ANGIOEDEMA Uncoded 02/03/22 13:27 Home Medications Medication Instructions Recorded Confirmed Last Taken Type No Known Home Meds 02/03/22 02/03/22 Unknown History Physical Exam Vital Signs: Vital Signs: Last Vital Signs Temp 98.4 F 02/03/22 12:00 Pulse 72 02/03/22 14:36 Resp 19 02/03/22 14:36 BP 109/58 L 02/03/22 14:36 Pulse Ox 100 02/03/22 14:36 O2 Del Method 02/03/22 14:36 BMI result Body Mass Index 24.7 The patient is non-toxic & in good spirits NC/AT, PERRLA, EOMI Mood, affect & judgment all appear appropriate Sclera anicteric conjunctiva pink and moist Oropharynx is clear with no aphthous ulcers, mucous membranes moist Neck is supple with no masses, adenopathy or bruits Heart is regular, normal S1-S2 no rubs or murmurs Lungs are clear and equal anteriorly with no audible wheezing, rubs or dullness to percussion Abdomen is overweight, soft with diffuse tenderness, predominantly in the epigastrium and no demonstrable hernias. No HSM, rebound, rigidity, guarding, masses or bruits are present. Rectal exam is deferred Skin has good turgor and is free of rashes Extremities free of cyanosis clubbing edema Results Results Labs: Short CBC 02/03/22 Range/Units 11:05 WBC 10.6 (4.8-10.8) X10*3/uL Hgb 13.9 (12.0-16.0) g/dl Hct 41.3 (37.0-47.0) % Plt Count 285 (160-400) X10*3/uL BMP 02/03/22 11:06 Sodium 140 Potassium 3.8 Chloride 104 Carbon Dioxide 27 BUN 9 Creatinine 0.71 Calcium 9.3 Liver Function 02/03/22 Range/Units 11:06 Total Bilirubin 2.5 H (0.0-1.0) mg/dL Direct Bilirubin 0.7 H (0.0-0.5) mg/dL AST 61 H (5-31) U/L ALT 166 H (0-31) U/L Alkaline Phosphatase 100 (39-117) U/L Albumin 4.0 (3.5-5.0) g/dL Urine 02/03/22 02/03/22 Range/Units 10:59 10:59 Urine Color Yellow Urine Appearance Clear Urine pH 6.5 (5.0-9.0) Ur Specific [place] 1.010 (1.005-1.025) Urine Protein Negative (Neg-Trace) mg/dL Urine Glucose (UA) Negative (Negative) mg/dL Urine Test NEGATIVE (NEGATIVE) Abdomen CT scan report/results: report reviewed and image reviewed CT scan - pelvis: report reviewed and image reviewed Additional studies: MRCP shows gallstones but the radiologist reports no common bile duct stones are present. Assessment and Plan (1) Acute pancreatitis: Status: Acute (2) Cholelithiasis: Status: Acute (3) Substance use disorder: Status: Acute (4) Abdominal pain: Status: Acute (5) Anxiety and depression: Status: Acute (6) Elevated LFTs: Status: Acute Plan Will admit, NPO and IV fluid. Given the history of substance use disorder and testing positive for fentanyl, will ask the hospitalist to help regarding possible withdrawal versus management of pancreatitis pain. Patient is also reporting smoking a pack a day, she may benefit from nicotine replacement and will ask the hospitalist to address Trend labs. Time Spent With Patient Time: Total time managing care of this patient today ____ minutes. Quality Stroke Does the patient have a stroke diagnosis?: No VTE Prior VTE?: No VTE Risk Level:: Surgical - moderate VTE Device Contraindication: N/A - Device Ordered VTE Drug Contraindication: Treatment Not Indicated Procedures Date of Service Date of Service: 02/03/22
[2022-02-03 16:54] VITALS: BP 102/55; PULSE 64; RESP 18; TEMP 37.3; O2SAT 98
[2022-02-03] MEDS: Lactated Ringers 1,000 ML 100 ML IVCONT (17:03)
[2022-02-03] MEDS: HYDROmorphone HCl 0.5 MG/0.5 ML SYRINGE 0.25 MG IVPUSH (17:03)
--- NOTE | 2022-02-03 17:05 | PC.NURSE ---
pt medicated per order for 10 pain
--- NOTE | 2022-02-03 17:35 | HO.PM.IMCN ---
History of Present Illness Data of Consult Service Date: 02/03/22 Requesting physician: Reji Mckeon Primary Care Provider: Irene Lantigua MD HPI Reason for consult: medical [facility] 31 year old female with history anxiety and depression admitted to General surgery for gallstone pancreatitis with consult placed to medicine for medical management and substance abuse disorder. On my exam, the patient denies any substance use but did report to General surgery she has used oxycodone which she obtained from a friend and took 2 doses yesterday. She denies any alcohol use but does states she smokes 1 pack of cigarettes daily. In the ED, she tested positive for fentanyl. Hematology studies unremarkable, renal function electrolyte levels normal. Mildly elevated LFTs with AST 61, ALT 166, total bilirubin 2.5, direct bilirubin 0.7, lipase 314. CT abdomen/pelvis showing prominent pancreas, particularly tail the pancreas with small amount of ascites and mild acute interstitial pancreatitis. Cholangiopancreatography MRI showing pancreatic findings most consistent with mild pancreatitis with associated infiltrative changes and mild peritoneal ascites without evidence of necrosis or pseudocyst formation as well as cholelithiasis without evidence for acute cholecystitis. Currently reports 8/10 diffuse abdominal pain. States occassionally has quick sharp left sided chest pain without radiation. Had single episode of vomiting 2/2 pain earlier today, denies nausea. Review of Systems Review of Systems: General: No fevers, malaise, unintentional weight loss Cardiovascular: +sharp chest pain. No palpitations, or leg edema Respiratory: No shortness of breath, wheezing, cough GI: +abdominal pain, +vomiting. No nausea, diarrhea, constipation, melena, hematochezia : No dysuria, hematuria, increased urinary frequency, decreased urinary output MSK: No myalgia, back pain Neuro: No headaches, weakness, paresthesias Skin: No rashes or lesions [facility] Medical History Anxiety and depression Coccyx pain Migraine headache Family History Mother Cancer Diabetes Osteoporosis Father No problems noted. Other Substance use disorder Surgical History No pertinent past surgical history Social History Housing: Apartment Alcohol intake: never Patient Tobacco Use Status: Current everyday Tobacco user Tobacco use type: Cigarette Cigarette Packs Per Day: 1 Cigarettes Per Day: 20 Smoked in Last 30 Days: Yes e-Cigarette/Vaping Use: Never Used Second Hand Smoke Exposure: Yes Use of substances other than those prescribed or required for medical reasons: No Advance Directives: No Advance Directives Information Provided: Yes Patient : No service: No Current occupational status: unemployed Cognitive needs: No Hearing needs: No Vision needs: No Meds Allergies Allergy/AdvReac Type Severity Reaction Status Date / Time iodine [IODINE] Allergy Severe ANGIOEDEMA Verified 02/03/22 13:27 SEAFOOD Allergy Severe ANGIOEDEMA Uncoded 02/03/22 13:27 Active Medications: Current Medications Hydromorphone HCl (Hydromorphone Hcl 0.5 Mg/0.5 Ml Syringe) 0.25 mg IVPUSH Q2H PRN; Protocol PRN Reason: Pain, Moderate (Pain Scale 4-6 Last Admin: 02/03/22 17:03 Dose: 0.25 mg Lactated Ringer's (Lr) 1,000 mls @ 100 mls/hr IVCONT .Q10H JORGE Last Admin: 02/03/22 17:03 Dose: 100 mls/hr Ondansetron HCl (Ondansetron Hcl 4 Mg/2 Ml Vial) 4 mg IVPUSH Q8H PRN PRN Reason: Nausea and Vomiting Home Medications Medication Instructions Recorded Confirmed Last Taken Type No Known Home Meds 02/03/22 02/03/22 Unknown History Physical Exam Vital Signs and Narrative: Vital Signs: Last Vital Signs Temp 99.2 F 02/03/22 16:54 Pulse 64 02/03/22 16:54 Resp 18 02/03/22 16:54 BP 102/55 L 02/03/22 16:54 Pulse Ox 98 02/03/22 16:54 O2 Del Method 02/03/22 16:54 BMI result Body Mass Index 24.7 Constitutional - Awake and Alert, No apparent distress Eyes - PERRLA, EOMI Cardiovascular - S1S2, RRR, No edema Respiratory - Normal lung expansion, Normal respiratory effort, No respiratory distress, CTA bilaterally Gastrointestinal - Diffuse abdominal ttp. ND; +BS; No rebound or guarding Extremities - no calf tenderness bilaterally, no swelling Skin - Warm/Dry Neurological - Alert & oriented x3 Psychological - Appropriate affect Results Labs CBC and Chem 7: 02/04/22 05:20 02/04/22 05:20 Labs: Laboratory Results - last 24 hr 02/03/22 02/03/22 02/03/22 10:59 10:59 10:59 MCV MCH MCHC RDW Plt Count MPV Immature Gran % (Auto) Neut % (Auto) Lymph % (Auto) [place] % (Auto) Eos % (Auto) Baso % (Auto) Lymph # (Auto) [place] # (Auto) Eos # (Auto) Baso # (Auto) Abs Immat Gran (auto) Absolute Neuts (auto) Absolute Nucleated RBC Nucleated RBC % (auto) PT INR Anion Gap Estim Creat Clear Calc Estimated GFR Random Glucose Calcium Magnesium Total Bilirubin Direct Bilirubin AST ALT Alkaline Phosphatase Total Protein Albumin Lipase Urine Color Yellow Urine Appearance Clear Urine pH 6.5 Ur Specific [place] 1.010 Urine Protein Negative Urine Glucose (UA) Negative Urine Ketones Trace Urine Blood Negative Urine Nitrite Negative Ur Leukocyte Esterase Negative Urine Test Urine Opiates Screen Urine Fentanyl Screen Ur Barbiturates Screen Ur Phencyclidine Scrn Ur Amphetamines Screen U Benzodiazepines Scrn Urine Cocaine Screen U Marijuana (THC) Screen COVID-19 (MAYELIN) Negative COVID-19 Clin Com See Note Influenza Type A (ROGE) Negative Influenza Type B (ROGE) Negative Influenza A & B Note See Note 02/03/22 02/03/22 02/03/22 10:59 10:59 11:05 MCV 86.0 MCH 29.0 MCHC 33.7 RDW 13.2 Plt Count 285 MPV 9.5 Immature Gran % (Auto) 0.2 Neut % (Auto) 77.5 H Lymph % (Auto) 16.9 L [place] % (Auto) 4.8 Eos % (Auto) 0.4 Baso % (Auto) 0.2 Lymph # (Auto) 1.8 [place] # (Auto) 0.5 Eos # (Auto) 0.0 Baso # (Auto) 0.0 Abs Immat Gran (auto) 0.02 Absolute Neuts (auto) 8.2 Absolute Nucleated RBC 0.000 Nucleated RBC % (auto) 0.0 PT INR Anion Gap Estim Creat Clear Calc Estimated GFR Random Glucose Calcium Magnesium Total Bilirubin Direct Bilirubin AST ALT Alkaline Phosphatase Total Protein Albumin Lipase Urine Color Urine Appearance Urine pH Ur Specific [place] Urine Protein Urine Glucose (UA) Urine Ketones Urine Blood Urine Nitrite Ur Leukocyte Esterase Urine Test NEGATIVE Urine Opiates Screen Not Detected Urine Fentanyl Screen POSITIVE H Ur Barbiturates Screen Not Detected Ur Phencyclidine Scrn Not Detected Ur Amphetamines Screen Not Detected U Benzodiazepines Scrn Not Detected Urine Cocaine Screen Not Detected U Marijuana (THC) Screen Not Detected COVID-19 (MAYELIN) COVID-19 Clin Com Influenza Type A (ROGE) Influenza Type B (ROGE) Influenza A & B Note 02/03/22 02/03/22 11:06 11:06 MCV MCH MCHC RDW Plt Count MPV Immature Gran % (Auto) Neut % (Auto) Lymph % (Auto) [place] % (Auto) Eos % (Auto) Baso % (Auto) Lymph # (Auto) [place] # (Auto) Eos # (Auto) Baso # (Auto) Abs Immat Gran (auto) Absolute Neuts (auto) Absolute Nucleated RBC Nucleated RBC % (auto) PT 14.4 H INR 1.2 H Anion Gap 13 Estim Creat Clear Calc 98.9 Estimated GFR > 60 Random Glucose 112 Calcium 9.3 Magnesium 2.0 Total Bilirubin 2.5 H Direct Bilirubin 0.7 H AST 61 H ALT 166 H Alkaline Phosphatase 100 Total Protein 6.2 L Albumin 4.0 Lipase 314 H Urine Color Urine Appearance Urine pH Ur Specific [place] Urine Protein Urine Glucose (UA) Urine Ketones Urine Blood Urine Nitrite Ur Leukocyte Esterase Urine Test Urine Opiates Screen Urine Fentanyl Screen Ur Barbiturates Screen Ur Phencyclidine Scrn Ur Amphetamines Screen U Benzodiazepines Scrn Urine Cocaine Screen U Marijuana (THC) Screen COVID-19 (MAYELIN) COVID-19 Clin Com Influenza Type A (ROGE) Influenza Type B (ROGE) Influenza A & B Note Imaging Radiologist's Impressions: Impressions Abdomen/Pelvis CT 02/03/22 12:20 IMPRESSION: Prominent pancreas, particularly the tail of the pancreas. The pancreas enhances normally and is otherwise unremarkable. Small amount of ascites. Mild acute interstitial pancreatitis should be considered. Correlation with amylase and lipase recommended. Small amount of generalized ascites. Gallstones. Fleischner guidelines were followed. Cholangiopancreatography MRI 02/03/22 14:18 IMPRESSION: 1. Pancreatic findings most consistent with mild pancreatitis with associated infiltrative changes and mild peritoneal ascites. No evidence for necrosis or pseudocyst formation. 2. Cholelithiasis without evidence for acute cholecystitis. Assessment and Plan (1) Acute pancreatitis: Status: Acute (2) Cholelithiasis: Status: Acute Plan 31 year old female with history anxiety and depression admitted to General surgery for gallstone pancreatitis with consult placed to medicine for medical management and substance abuse disorder. #Acute gallstone pancreatitis -CT abd/ pelvis and MRCP showing gallstones and mild pancreatitis with associated infiltrative changes and mild peritoneal ascites without evidence of necrosis or pseudocyst formation -aggressive IV hydration with LR. Increase rate to 200 mL/hr -pain management using pain scale- oxycodone and Dilaudid -ondansetron p.r.n. -keep NPO per surgery -Plan per gen surg #Substance use -Utox positive for fentanyl -Denies illicit drug use to me, but admitted to taking 2 doses friends oxycodone yesterday to surgeon -Addiction Med consult placed by surgery #Nicotine dependence -Smokes 1ppd cigarettes -COunseled on smoking cessation -NRT declined Will continue following. Time Spent With Patient Time: Total time managing care of this patient today ____ minutes.
[2022-02-03 20:44] VITALS: BP 99/56; PULSE 55; RESP 14; TEMP 36.8; O2SAT 100
[2022-02-03] MEDS: oxyCODONE HCl Immed Release 5 MG TABLET PO (21:37)
[2022-02-03] MEDS: Lactated Ringers 1,000 ML 200 ML IVCONT (22:57)
[2022-02-04] MEDS: oxyCODONE HCl Immed Release 5 MG TABLET PO (03:50)
[2022-02-04 06:00] VITALS: BP 107/66; PULSE 61; RESP 16; TEMP 36.9; O2SAT 99
[2022-02-04] MEDS: Lactated Ringers 1,000 ML 200 ML IVCONT ×2 (06:39→12:34)
[2022-02-04 06:47] LABS: MANUAL DIFF FLAG NO
[2022-02-04 06:55] LABS: Basophils Percent Auto 0.3 % (0-2); Eosinophils Absolute Auto 0.1 X10*3/uL (0.0-0.4); Eosinophils Percent Auto 1.1 % (0-4); Hematocrit 31.2 % (37.0-47.0); Hemoglobin 10.3 g/dl (12.0-16.0); Imm Gran Abs Auto 0.03 X10*3/uL (0.00-0.03); Imm Gran Pct Auto 0.3 % (0.0-0.4); Lymphocytes Absolute Auto 2.5 X10*3/uL (1.2-4.9); Lymphocytes Percent Auto 26.6 % (20-40); Mean Corpuscular Hemoglobin 29.4 pg (27.0-33.0); Mean Corpuscular Volume 89.1 fL (80.0-98.0); Mean Platelet Volume 10.7 fL (9.4-12.3); Monocytes Absolute Auto 0.6 X10*3/uL (0.1-1.2); Monocytes Percent Auto 6.4 % (2-11); Neutrophils Absolute Auto 6.2 x10*3/uL (2.0-8.3); Neutrophils Percent Auto 65.3 % (45-73); Platelet Count 224 X10*3/uL (160-400); Red Cell Distribution Width 13.5 % (11.0-16.0); White Blood Count 9.4 X10*3/uL (4.8-10.8)
--- NOTE | 2022-02-04 07:10 | PM.PNGS ---
Subjective Subjective Date of Service: 02/04/22 Patient reports: no new complaints, still having pain, no flatus and no bowel movement Interval history: The patient is easily awoken and reports that she feels about the same as yesterday regarding abdominal pain. She has some nausea that is controlled but no vomiting and denies any flatus or bowel movement. She otherwise denies chest pain, difficulty breathing, shortness of breath or localizing neurologic symptoms. She denies any obvious symptoms related to opiate withdraw such as anxiety, sweats or shaking. Physical Exam Vital Signs: Vital Signs: Last Vital Signs Temp 98.5 F 02/04/22 06:00 Pulse 61 02/04/22 06:00 Resp 16 02/04/22 06:00 BP 107/66 02/04/22 06:00 Pulse Ox 99 02/04/22 06:00 O2 Del Method 02/04/22 06:00 BMI result Body Mass Index 24.7 She is nontoxic Abdomen is unchanged. It is soft with diffuse tenderness with no rebound, rigidity or guarding Objective Data Active Medications Hydromorphone HCl (Hydromorphone Hcl 0.5 Mg/0.5 Ml Syringe) 0.25 mg IVPUSH Q2H PRN; Protocol PRN Reason: Pain, Severe (Pain Scale 7-10) Lactated Ringer's (Lr) 1,000 mls @ 200 mls/hr IVCONT .Q5H JORGE Last Admin: 02/04/22 06:39 Dose: 200 mls/hr Documented By: SAVANAH Ondansetron HCl (Ondansetron Hcl 4 Mg/2 Ml Vial) 4 mg IVPUSH Q8H PRN PRN Reason: Nausea and Vomiting Oxycodone HCl (Oxycodone Hcl Immed Release 5 Mg Tablet) 5 mg PO Q4H PRN PRN Reason: Pain, Moderate (Pain Scale 4-6 Last Admin: 02/04/22 03:50 Dose: 5 mg Documented By: SAVANAH Labs CBC & Chem 7: 02/04/22 05:20 02/04/22 05:20 Labs: Laboratory Results - last 24 hr 02/03/22 02/03/22 02/03/22 10:59 10:59 10:59 MCV MCH MCHC RDW Plt Count MPV Immature Gran % (Auto) Neut % (Auto) Lymph % (Auto) [place] % (Auto) Eos % (Auto) Baso % (Auto) Lymph # (Auto) [place] # (Auto) Eos # (Auto) Baso # (Auto) Abs Immat Gran (auto) Absolute Neuts (auto) Absolute Nucleated RBC Nucleated RBC % (auto) PT INR Anion Gap Estim Creat Clear Calc Estimated GFR Random Glucose Calcium Magnesium Total Bilirubin Direct Bilirubin AST ALT Alkaline Phosphatase Total Protein Albumin Lipase Urine Color Yellow Urine Appearance Clear Urine pH 6.5 Ur Specific [place] 1.010 Urine Protein Negative Urine Glucose (UA) Negative Urine Ketones Trace Urine Blood Negative Urine Nitrite Negative Ur Leukocyte Esterase Negative Urine Test Urine Opiates Screen Urine Fentanyl Screen Ur Barbiturates Screen Ur Phencyclidine Scrn Ur Amphetamines Screen U Benzodiazepines Scrn Urine Cocaine Screen U Marijuana (THC) Screen COVID-19 (MAYELIN) Negative COVID-19 Clin Com See Note Influenza Type A (ROGE) Negative Influenza Type B (ROGE) Negative Influenza A & B Note See Note 02/03/22 02/03/22 02/03/22 10:59 10:59 11:05 MCV 86.0 MCH 29.0 MCHC 33.7 RDW 13.2 Plt Count 285 MPV 9.5 Immature Gran % (Auto) 0.2 Neut % (Auto) 77.5 H Lymph % (Auto) 16.9 L [place] % (Auto) 4.8 Eos % (Auto) 0.4 Baso % (Auto) 0.2 Lymph # (Auto) 1.8 [place] # (Auto) 0.5 Eos # (Auto) 0.0 Baso # (Auto) 0.0 Abs Immat Gran (auto) 0.02 Absolute Neuts (auto) 8.2 Absolute Nucleated RBC 0.000 Nucleated RBC % (auto) 0.0 PT INR Anion Gap Estim Creat Clear Calc Estimated GFR Random Glucose Calcium Magnesium Total Bilirubin Direct Bilirubin AST ALT Alkaline Phosphatase Total Protein Albumin Lipase Urine Color Urine Appearance Urine pH Ur Specific [place] Urine Protein Urine Glucose (UA) Urine Ketones Urine Blood Urine Nitrite Ur Leukocyte Esterase Urine Test NEGATIVE Urine Opiates Screen Not Detected Urine Fentanyl Screen POSITIVE H Ur Barbiturates Screen Not Detected Ur Phencyclidine Scrn Not Detected Ur Amphetamines Screen Not Detected U Benzodiazepines Scrn Not Detected Urine Cocaine Screen Not Detected U Marijuana (THC) Screen Not Detected COVID-19 (MAYELIN) COVID-19 Clin Com Influenza Type A (ROGE) Influenza Type B (ROGE) Influenza A & B Note 02/03/22 02/03/22 11:06 11:06 MCV MCH MCHC RDW Plt Count MPV Immature Gran % (Auto) Neut % (Auto) Lymph % (Auto) [place] % (Auto) Eos % (Auto) Baso % (Auto) Lymph # (Auto) [place] # (Auto) Eos # (Auto) Baso # (Auto) Abs Immat Gran (auto) Absolute Neuts (auto) Absolute Nucleated RBC Nucleated RBC % (auto) PT 14.4 H INR 1.2 H Anion Gap 13 Estim Creat Clear Calc 98.9 Estimated GFR > 60 Random Glucose 112 Calcium 9.3 Magnesium 2.0 Total Bilirubin 2.5 H Direct Bilirubin 0.7 H AST 61 H ALT 166 H Alkaline Phosphatase 100 Total Protein 6.2 L Albumin 4.0 Lipase 314 H Urine Color Urine Appearance Urine pH Ur Specific [place] Urine Protein Urine Glucose (UA) Urine Ketones Urine Blood Urine Nitrite Ur Leukocyte Esterase Urine Test Urine Opiates Screen Urine Fentanyl Screen Ur Barbiturates Screen Ur Phencyclidine Scrn Ur Amphetamines Screen U Benzodiazepines Scrn Urine Cocaine Screen U Marijuana (THC) Screen COVID-19 (MAYELIN) COVID-19 Clin Com Influenza Type A (ROGE) Influenza Type B (ROGE) Influenza A & B Note Procedures Date of Service Date of Service: 02/04/22 Progress Note: A&P Assessment and plan (1) Acute pancreatitis: Status: Acute (2) Cholelithiasis: Status: Acute (3) Substance use disorder: Status: Acute (4) Elevated LFTs: Status: Acute Plan today's labs show nml wbc, Hb drift likely dilutional; LFTs normalizing, likely c/w gallstone pancreatitis Trend labs to tomorrow. Continue NPO and IV fluid Patient's substance use counselor has been consulted; await input Time Spent With Patient Time: Total time managing care of this patient today ____ minutes. Quality Stroke Does the patient have a stroke diagnosis?: No VTE Prior VTE?: No VTE Risk Level:: Surgical - moderate VTE Device Contraindication: N/A - Device Ordered VTE Drug Contraindication: Treatment Not Indicated
[2022-02-04 07:33] VITALS: BP 94/52; PULSE 64; RESP 16; O2SAT 98
[2022-02-04 07:37] LABS: Alanine Aminotransferase 92 U/L (0-31); Albumin Level 3.1 g/dL (3.5-5.0); Alkaline Phosphatase 68 U/L (39-117); Anion Gap 11 (12-20); Aspartate Amino Transferase 26 U/L (5-31); Blood Urea Nitrogen 10 mg/dL (9-16); Calcium 8.4 mg/dL (8.4-10.2); Carbon Dioxide 24 mmol/L (22-29); Chloride 110 mmol/L (96-108); Estimated Glomerular Filt Rate > 60; Glucose Random 76 mg/dL (60-115); Potassium 3.9 mmol/L (3.3-5.1); Sodium 141 mmol/L (135-145); Total Protein 4.8 g/dL (6.5-8.0)
[2022-02-04] MEDS: HYDROmorphone HCl 0.5 MG/0.5 ML SYRINGE 0.25 MG IVPUSH ×4 (08:09→22:20)
[2022-02-04 09:02] LABS: Lipase 114 U/L (8-78)
--- NOTE | 2022-02-04 09:45 | MHC.CM.PN ---
This technical publications writer meet with patient for CM assessment. Alert & oriented. No services in the home prior to hospitalization. PCP verified. No HCP- declined to completed. Vax'd, no boosted for COVID. D/C plan- home no services. Has family/friend to transport home.
--- NOTE | 2022-02-04 10:59 | MHC.RECOVRN ---
Met with pt in overflow 3, along with healthcare consulting manager. Pt laying in bed, eyes closed, arouses to voice. Pt visibly confused when t/w introduced self and role, difficult to engage in conversation. Guarded. Pt reports taking pain medication, denies knowledge of it containing fentanyl. Denies illicit substance use. Pt denies experiencing withdrawal symptoms currently or at any time when not taking the pain medication. Pt educated regarding fentanyl, risk for overdose, fentanyl test strips. Pt open to test strips which t/w will give to pt. Denies other questions or concerns. Discussed with Dipika Moreno APRN.
[2022-02-04 12:29] VITALS: BP 105/64; PULSE 60; RESP 16; O2SAT 98
--- NOTE | 2022-02-04 14:45 | HO.PM.IMPN ---
Subjective Subjective Date of Service: 02/04/22 Interval History: Possible gallstone pancreatitis Review of Systems Patient says abdominal pain improving, no nausea vomiting or fever. Physical Exam Vital Signs: Vital Signs: Last Vital Signs Temp 98.5 F 02/04/22 06:00 Pulse 60 02/04/22 12:29 Resp 16 02/04/22 12:29 BP 105/64 02/04/22 12:29 Pulse Ox 98 02/04/22 12:29 O2 Del Method 02/04/22 12:29 BMI result Body Mass Index 24.7 Appearance: Alert.? Oriented X3.? not in distress.? cvs: rrr, [id number] , no murmur res: clear to auscultation ,no rhonchii or wheezing abd: no rebound or guarding ,mild diffuse abd soarness, bs present. ext pulses present , no cyanosis . neuro: axo3 , nonfocal. Objective Data Active Medications Hydromorphone HCl (Hydromorphone Hcl 0.5 Mg/0.5 Ml Syringe) 0.25 mg IVPUSH Q2H PRN; Protocol PRN Reason: Pain, Severe (Pain Scale 7-10) Last Admin: 02/04/22 08:09 Dose: 0.25 mg Documented By: TINO Lactated Ringer's (Lr) 1,000 mls @ 100 mls/hr IVCONT .Q10H JORGE Last Admin: 02/04/22 12:34 Dose: 200 mls/hr Documented By: TINO Ondansetron HCl (Ondansetron Hcl 4 Mg/2 Ml Vial) 4 mg IVPUSH Q8H PRN PRN Reason: Nausea and Vomiting Labs CBC & Chem 7: 02/04/22 05:20 02/04/22 05:20 Labs: Laboratory Results - last 24 hr 02/04/22 02/04/22 05:20 05:20 MCV 89.1 MCH 29.4 MCHC 33.0 RDW 13.5 Plt Count 224 MPV 10.7 Immature Gran % (Auto) 0.3 Neut % (Auto) 65.3 Lymph % (Auto) 26.6 [place] % (Auto) 6.4 Eos % (Auto) 1.1 Baso % (Auto) 0.3 Lymph # (Auto) 2.5 [place] # (Auto) 0.6 Eos # (Auto) 0.1 Baso # (Auto) 0.0 Abs Immat Gran (auto) 0.03 Absolute Neuts (auto) 6.2 Absolute Nucleated RBC 0.000 Nucleated RBC % (auto) 0.0 Anion Gap 11 L Estim Creat Clear Calc 115.0 Estimated GFR > 60 Random Glucose 76 Calcium 8.4 D Total Bilirubin 2.0 H AST 26 ALT 92 H Alkaline Phosphatase 68 Total Protein 4.8 L Albumin 3.1 L Lipase 114 H Microbiology Microbiology Results: Microbiology 02/03/22 11:07 Blood Culture - Preliminary Blood - Venous No growth after 24 hours. 02/03/22 11:05 Blood Culture - Preliminary Blood - Venous No growth after 24 hours. Assessment and Plan (1) Acute pancreatitis: Status: Acute (2) Smoker: Status: Acute Assessment and Plan: 31 year old female with history anxiety and depression admitted to General surgery for gallstone pancreatitis with consult placed to medicine for medical management and substance abuse disorder. #Acute gallstone pancreatitis -CT abd/ pelvis and MRCP showing gallstones and mild pancreatitis with associated infiltrative changes and mild peritoneal ascites without evidence of necrosis or pseudocyst formation -aggressive IV hydration with LR.? Increase rate to 200 mL/hr -pain management using pain scale- oxycodone and Dilaudid -ondansetron p.r.n. -keep NPO per surgery -Plan per gen surg #Utox positive for fentanyl -Denies illicit drug use to me, but admitted to taking 2 doses friends oxycodone yesterday to surgeon -Addiction Med consult placed by surgery #Nicotine dependence -Smokes 1ppd cigarettes -COunseled on smoking cessation -NRT declined. dvt prophylax: [facility] devices. Plan 31 year old female with history anxiety and depression admitted to General surgery for gallstone pancreatitis with consult placed to medicine for medical management and substance abuse disorder. #Acute gallstone pancreatitis -CT abd/ pelvis and MRCP showing gallstones and mild pancreatitis with associated infiltrative changes and mild peritoneal ascites without evidence of necrosis or pseudocyst formation -aggressive IV hydration with LR.? Increase rate to 200 mL/hr -pain management using pain scale- oxycodone and Dilaudid -ondansetron p.r.n. -keep NPO per surgery -Plan per gen surg #Substance use -Utox positive for fentanyl -Denies illicit drug use to me, but admitted to taking 2 doses friends oxycodone yesterday to surgeon -Addiction Med consult placed by surgery #Nicotine dependence -Smokes 1ppd cigarettes -COunseled on smoking cessation -NRT declined Time Spent With Patient Time: Total time managing care of this patient today ____ minutes. Quality Stroke Does the patient have a stroke diagnosis?: No VTE Prior VTE?: No VTE Risk Level:: Surgical - moderate VTE Device Contraindication: N/A - Device Ordered VTE Drug Contraindication: Treatment Not Indicated
[2022-02-04 15:35] VITALS: BP 104/65; PULSE 62; RESP 16; TEMP 36.9; O2SAT 99
[2022-02-04 16:00] VITALS: BP 108/59; PULSE 63; RESP 18; TEMP 36.6; O2SAT 99
--- NOTE | 2022-02-04 16:22 | PM.EVENT ---
Event Note Date of Service: 02/04/22 Event Note: Addiction Consult: Please see Recovery SUpport RN Note Time Spent With Patient Time: Total time managing care of this patient today ____ minutes.
[2022-02-04 19:20] VITALS: BP 108/56; PULSE 77; RESP 18; TEMP 37; O2SAT 99
[2022-02-05] MEDS: Lactated Ringers 1,000 ML 100 ML IVCONT ×2 (03:19→13:33)
[2022-02-05 03:21] VITALS: BP 98/55; PULSE 66; RESP 18; TEMP 36.6; O2SAT 98
[2022-02-05 05:53] LABS: MANUAL DIFF FLAG NO
[2022-02-05 05:57] LABS: Basophils Percent Auto 0.4 % (0-2); Eosinophils Absolute Auto 0.1 X10*3/uL (0.0-0.4); Eosinophils Percent Auto 1.3 % (0-4); Hematocrit 29.3 % (37.0-47.0); Hemoglobin 9.6 g/dl (12.0-16.0); Imm Gran Abs Auto 0.01 X10*3/uL (0.00-0.03); Imm Gran Pct Auto 0.1 % (0.0-0.4); Lymphocytes Absolute Auto 2.6 X10*3/uL (1.2-4.9); Lymphocytes Percent Auto 37.2 % (20-40); Mean Corpuscular HGB Conc 32.8 g/dl (31.0-35.0); Mean Corpuscular Hemoglobin 29.4 pg (27.0-33.0); Mean Corpuscular Volume 89.6 fL (80.0-98.0); Mean Platelet Volume 10.5 fL (9.4-12.3); Monocytes Absolute Auto 0.5 X10*3/uL (0.1-1.2); Monocytes Percent Auto 7.3 % (2-11); Neutrophils Absolute Auto 3.7 x10*3/uL (2.0-8.3); Neutrophils Percent Auto 53.7 % (45-73); Platelet Count 197 X10*3/uL (160-400); Red Blood Count 3.27 X10*6/uL (4.20-5.50); Red Cell Distribution Width 13.3 % (11.0-16.0); White Blood Count 6.9 X10*3/uL (4.8-10.8)
[2022-02-05 06:26] LABS: Alanine Aminotransferase 65 U/L (0-31); Albumin Level 3.1 g/dL (3.5-5.0); Alkaline Phosphatase 70 U/L (39-117); Anion Gap 10 (12-20); Aspartate Amino Transferase 20 U/L (5-31); Bilirubin Total 0.9 mg/dL (0.0-1.0); Blood Urea Nitrogen 7 mg/dL (9-16); Calcium 8.6 mg/dL (8.4-10.2); Carbon Dioxide 28 mmol/L (22-29); Chloride 108 mmol/L (96-108); Estimated Glomerular Filt Rate > 60; Glucose Random 103 mg/dL (60-115); Lipase 43 U/L (8-78); Potassium 4.3 mmol/L (3.3-5.1); Sodium 142 mmol/L (135-145); Total Protein 4.8 g/dL (6.5-8.0)
--- NOTE | 2022-02-05 07:19 | PM.PNGS ---
Subjective Subjective Date of Service: 02/05/22 Patient reports: feels better, pain is less, no flatus and no bowel movement Interval history: The patient reports that she is overall feeling better, but still has some abdominal pain. She otherwise denies symptoms of withdrawal and denies any headache, visual disturbances, chest pain, difficulty breathing, shortness of breath or lower extremity pain or swelling. Physical Exam Vital Signs: Vital Signs: Last Vital Signs Temp 97.8 F 02/05/22 03:21 Pulse 66 02/05/22 03:21 Resp 18 02/05/22 03:21 BP 98/55 L 02/05/22 03:21 Pulse Ox 98 02/05/22 03:21 O2 Del Method 02/05/22 03:21 BMI result Body Mass Index 24.7 Patient is nontoxic On exam, her abdomen remains soft with interval improvement versus yesterday. There is still some vague epigastric discomfort but no rebound, rigidity or guarding. Objective Data Active Medications Hydromorphone HCl (Hydromorphone Hcl 0.5 Mg/0.5 Ml Syringe) 0.25 mg IVPUSH Q2H PRN; Protocol PRN Reason: Pain, Severe (Pain Scale 7-10) Last Admin: 02/04/22 22:20 Dose: 0.25 mg Documented By: TOMA Lactated Ringer's (Lr) 1,000 mls @ 80 mls/hr IVCONT .[id number] JORGE Last Admin: 02/05/22 03:19 Dose: 100 mls/hr Documented By: TOMA Ondansetron HCl (Ondansetron Hcl 4 Mg/2 Ml Vial) 4 mg IVPUSH Q8H PRN PRN Reason: Nausea and Vomiting Labs CBC & Chem 7: 02/05/22 05:02 02/05/22 05:02 Labs: Laboratory Results - last 24 hr 02/04/22 02/05/22 02/05/22 05:20 05:02 05:02 MCV 89.6 MCH 29.4 MCHC 32.8 RDW 13.3 Plt Count 197 MPV 10.5 Immature Gran % (Auto) 0.1 Neut % (Auto) 53.7 Lymph % (Auto) 37.2 [place] % (Auto) 7.3 Eos % (Auto) 1.3 Baso % (Auto) 0.4 Lymph # (Auto) 2.6 [place] # (Auto) 0.5 Eos # (Auto) 0.1 Baso # (Auto) 0.0 Abs Immat Gran (auto) 0.01 Absolute Neuts (auto) 3.7 Absolute Nucleated RBC 0.000 Nucleated RBC % (auto) 0.0 Anion Gap 11 L 10 L Estim Creat Clear Calc 115.0 115.0 Estimated GFR > 60 > 60 Random Glucose 76 103 Calcium 8.4 D 8.6 Total Bilirubin 2.0 H 0.9 AST 26 20 ALT 92 H 65 H Alkaline Phosphatase 68 70 Total Protein 4.8 L 4.8 L Albumin 3.1 L 3.1 L Lipase 114 H 43 Microbiology Microbiology Results: Microbiology 02/03/22 11:07 Blood Culture - Preliminary Blood - Venous No growth after 24 hours. 02/03/22 11:05 Blood Culture - Preliminary Blood - Venous No growth after 24 hours. Procedures Date of Service Date of Service: 02/05/22 Progress Note: A&P Assessment and plan (1) Gallstone pancreatitis: Status: Acute (2) Cholelithiasis: Status: Acute (3) Acute pancreatitis: Status: Acute (4) Smoker: Status: Acute (5) Substance use disorder: Status: Acute Plan The patient's labs continue to improve. Continue NPO and IVF for now. Likely gallstone pancreatitis and discussion about laparoscopic cholecystectomy was undertaken with the patient. Since she admits to substance use issues and unknown medicines/street drugs, I explained that she may still be at risk for recurrent pancreatitis if her pancreatitis is due to these unknown drugs. She seemed understand and asked for some time to discuss options. Will see her again later today. I discussed the patient's testing positive for fentanyl given her history of substance abuse. She insists that she only took which she assumed was oxycodone because she was having a gallbladder attack and abdominal pain. I again explained to the patient that she is using unknown medications that are actually fentanyl that can be fatal. I also explained there are other note substances which can cause pancreatitis, that may be part of these manufactured pills and for all of these reasons, she must not use them. Given the inherent risks of acute, recurrent pancreatitis which include rehospitalization, , multi-system organ failure, possible ICU stay and , I believe that it is medically appropriate to perform a cholecystectomy on this patient in an attempt to avoid more serious repercussions related to another episode of gallstone pancreatitis. With the pt, I also reviewed the inherent risks to surgery which include, but are not limited to: Bleeding that could require another operation or blood transfusion, the need for open surgery, the unlikely but possible issue of bile leak that could require an ERCP, the risk of retained common duct stones that could require an ERCP, the risk of common bile duct injury which would require transfer to a larger institution for another operation. Patient seemed to understand her options, declined a client advocate or 2nd opinion and wants to proceed. We had a candid conversation about her prior history of addiction and she reports that it is something she is concerned about but does not want to repeat. We discussed the pros and cons of support systems if she develops cravings as well as the importance of abstaining from unknown medications that can cause . She verbalized understanding and has given permission to move forward with a laparoscopic cholecystectomy tomorrow at noon. See orders. NPO, IVF, trend labs. Please have pt void urinary bladder on-call to OR. Time Spent With Patient Time: Total time managing care of this patient today ____ minutes. Quality Stroke Does the patient have a stroke diagnosis?: No VTE Prior VTE?: No VTE Risk Level:: Surgical - moderate VTE Device Contraindication: N/A - Device Ordered VTE Drug Contraindication: Treatment Not Indicated
[2022-02-05 08:00] VITALS: RESP 18
[2022-02-05] MEDS: HYDROmorphone HCl 0.5 MG/0.5 ML SYRINGE 0.25 MG IVPUSH ×4 (08:56→20:16)
--- NOTE | 2022-02-05 13:53 | HO.PM.IMPN ---
Subjective Subjective Date of Service: 02/05/22 Interval History: abd pain Review of Systems nausea /vomiting ,abd pain improvin Physical Exam Vital Signs: Vital Signs: Last Vital Signs Temp 97.8 F 02/05/22 03:21 Pulse 66 02/05/22 03:21 Resp 18 02/05/22 08:00 BP 98/55 L 02/05/22 03:21 Pulse Ox 98 02/05/22 03:21 O2 Del Method 02/05/22 03:21 BMI result Body Mass Index 24.7 ? Appearance: Alert.? Oriented X3.? not in distress.? cvs: rrr, [id number] , no murmur res: clear to auscultation ,no rhonchii or wheezing abd: no rebound or guarding ,mild diffuse abd soarness, bs present. ext pulses present , no cyanosis . neuro: axo3 , nonfocal. Objective Data Active Medications Hydromorphone HCl (Hydromorphone Hcl 0.5 Mg/0.5 Ml Syringe) 0.25 mg IVPUSH Q2H PRN; Protocol PRN Reason: Pain, Severe (Pain Scale 7-10) Last Admin: 02/05/22 13:32 Dose: 0.25 mg Documented By: ROSE Lactated Ringer's (Lr) 1,000 mls @ 80 mls/hr IVCONT .[id number] [id number] Last Admin: 02/05/22 13:33 Dose: 100 mls/hr Documented By: ROSE Ondansetron HCl (Ondansetron Hcl 4 Mg/2 Ml Vial) 4 mg IVPUSH Q8H PRN PRN Reason: Nausea and Vomiting Labs CBC & Chem 7: 02/05/22 05:02 02/05/22 05:02 Labs: Laboratory Results - last 24 hr 02/05/22 02/05/22 05:02 05:02 MCV 89.6 MCH 29.4 MCHC 32.8 RDW 13.3 Plt Count 197 MPV 10.5 Immature Gran % (Auto) 0.1 Neut % (Auto) 53.7 Lymph % (Auto) 37.2 [place] % (Auto) 7.3 Eos % (Auto) 1.3 Baso % (Auto) 0.4 Lymph # (Auto) 2.6 [place] # (Auto) 0.5 Eos # (Auto) 0.1 Baso # (Auto) 0.0 Abs Immat Gran (auto) 0.01 Absolute Neuts (auto) 3.7 Absolute Nucleated RBC 0.000 Nucleated RBC % (auto) 0.0 Anion Gap 10 L Estim Creat Clear Calc 115.0 Estimated GFR > 60 Random Glucose 103 Calcium 8.6 Total Bilirubin 0.9 AST 20 ALT 65 H Alkaline Phosphatase 70 Total Protein 4.8 L Albumin 3.1 L Lipase 43 Microbiology Microbiology Results: Microbiology 02/03/22 11:07 Blood Culture - Preliminary Blood - Venous No growth after 48 hours. 02/03/22 11:05 Blood Culture - Preliminary Blood - Venous No growth after 48 hours. Assessment and Plan (1) Acute pancreatitis: Status: Acute (2) Smoker: Status: Acute Assessment and Plan: 31 year old female with history anxiety and depression admitted to General surgery for gallstone pancreatitis with consult placed to medicine for medical management and substance abuse disorder. #Acute gallstone pancreatitis -CT abd/ pelvis and MRCP showing gallstones and mild pancreatitis with associated infiltrative changes and mild peritoneal ascites without evidence of necrosis or pseudocyst formation iv hydration ,pain managemnt, abd pain improving surgery followin #Utox positive for fentanyl -Denies illicit drug use to me, but admitted to taking 2 doses friends oxycodone yesterday to surgeon -Addiction Med consult placed by surgery #Nicotine dependence -Smokes 1ppd cigarettes -COunseled on smoking cessation -NRT declined. dvt prophylax: [facility] devices. Time Spent With Patient Time: Total time managing care of this patient today ____ minutes. Quality Stroke Does the patient have a stroke diagnosis?: No VTE Prior VTE?: No VTE Risk Level:: Surgical - moderate VTE Device Contraindication: N/A - Device Ordered VTE Drug Contraindication: Treatment Not Indicated
[2022-02-05 15:22] VITALS: BP 104/63; PULSE 60; RESP 18; TEMP 36.9; O2SAT 99
[2022-02-05 19:31] VITALS: BP 103/65; PULSE 68; RESP 16; TEMP 36.9; O2SAT 99
[2022-02-06] VITALS (10 sets, daily range): BP systolic 107–129; BP diastolic 61–76; PULSE 47–74; RESP 16–18; TEMP 36.5–37.3; O2SAT 96–100
[2022-02-06] MEDS: Lactated Ringers 1,000 ML 100 ML IVCONT (05:08)
[2022-02-06] MEDS: HYDROmorphone HCl 0.5 MG/0.5 ML SYRINGE 0.25 MG IVPUSH ×4 (05:12→22:13)
[2022-02-06 05:52] LABS: MANUAL DIFF FLAG NO
[2022-02-06 06:01] LABS: Basophils Percent Auto 0.5 % (0-2); Eosinophils Absolute Auto 0.1 X10*3/uL (0.0-0.4); Eosinophils Percent Auto 1.7 % (0-4); Hematocrit 29.5 % (37.0-47.0); Hemoglobin 9.6 g/dl (12.0-16.0); Imm Gran Abs Auto 0.02 X10*3/uL (0.00-0.03); Imm Gran Pct Auto 0.3 % (0.0-0.4); Lymphocytes Absolute Auto 2.3 X10*3/uL (1.2-4.9); Lymphocytes Percent Auto 36.9 % (20-40); Mean Corpuscular HGB Conc 32.5 g/dl (31.0-35.0); Mean Corpuscular Hemoglobin 28.8 pg (27.0-33.0); Mean Corpuscular Volume 88.6 fL (80.0-98.0); Mean Platelet Volume 10.7 fL (9.4-12.3); Monocytes Absolute Auto 0.5 X10*3/uL (0.1-1.2); Monocytes Percent Auto 7.6 % (2-11); Neutrophils Absolute Auto 3.3 x10*3/uL (2.0-8.3); Platelet Count 213 X10*3/uL (160-400); Red Blood Count 3.33 X10*6/uL (4.20-5.50); Red Cell Distribution Width 13.4 % (11.0-16.0); White Blood Count 6.3 X10*3/uL (4.8-10.8)
[2022-02-06 06:24] LABS: Alanine Aminotransferase 54 U/L (0-31); Albumin Level 3.1 g/dL (3.5-5.0); Alkaline Phosphatase 66 U/L (39-117); Anion Gap 11 (12-20); Aspartate Amino Transferase 19 U/L (5-31); Bilirubin Total 0.6 mg/dL (0.0-1.0); Blood Urea Nitrogen 5 mg/dL (9-16); Calcium 8.4 mg/dL (8.4-10.2); Carbon Dioxide 28 mmol/L (22-29); Chloride 108 mmol/L (96-108); Creatinine Clr Calc Pharmacy 111.4; Estimated Glomerular Filt Rate > 60; Glucose Random 97 mg/dL (60-115); Potassium 4.2 mmol/L (3.3-5.1); Sodium 143 mmol/L (135-145); Total Protein 4.9 g/dL (6.5-8.0)
--- NOTE | 2022-02-06 08:50 | P.PNGS_ITS ---
Subjective Subjective Date of Service: 02/06/22 Patient reports: no new complaints, feels better, pain is less, flatus and no bowel movement Interval history: The patient denies interval change since she was evaluated last night and reports continued improvement in her abdominal pain. The option of starting a diet with discharge home was reviewed with the pros and cons of recurring pancreatitis, assuming this is gallstone pancreatitis, and the patient declined discharge. She continues to endorse that she took which she assumed was oxycodone because she was having a gallbladder attack or pancreatitis. The patient would like to proceed with a laparoscopic, possible open cholecystectomy and possible cholangiogram. We reviewed the procedure, risks, benefits and alternatives again and she seems to understand and notes that she wishes to have her gallbladder removed. Physical Exam Vital Signs: Vital Signs: Last Vital Signs Temp 98.2 F 02/06/22 07:47 Pulse 74 02/06/22 07:47 Resp 16 02/06/22 07:47 BP 121/68 02/06/22 07:47 Pulse Ox 98 02/06/22 07:47 O2 Del Method 02/06/22 07:47 BMI result Body Mass Index 24.7 She is anicteric and nontoxic Her abdomen is soft and much less tender than it admission. In her abdomen is essentially benign Objective Data Active Medications Hydromorphone HCl (Hydromorphone Hcl 0.5 Mg/0.5 Ml Syringe) 0.25 mg IVPUSH Q2H PRN; Protocol PRN Reason: Pain, Severe (Pain Scale 7-10) Last Admin: 02/06/22 08:39 Dose: 0.25 mg Documented By: MICHAEL Lactated Ringer's (Lr) 1,000 mls @ 80 mls/hr IVCONT .[id number] [facility] Last Admin: 02/06/22 05:08 Dose: 100 mls/hr Documented By: GOLDEN Cefazolin Sodium/Dextrose (Ancef) 2 gm in 50 mls @ 100 mls/hr IV ONCE ONE Stop: 02/06/22 12:29 Ondansetron HCl (Ondansetron Hcl 4 Mg/2 Ml Vial) 4 mg IVPUSH Q8H PRN PRN Reason: Nausea and Vomiting Labs CBC & Chem 7: 02/06/22 05:07 02/06/22 05:07 Labs: Laboratory Results - last 24 hr 02/06/22 02/06/22 05:07 05:07 MCV 88.6 MCH 28.8 MCHC 32.5 RDW 13.4 Plt Count 213 MPV 10.7 Immature Gran % (Auto) 0.3 Neut % (Auto) 53.0 Lymph % (Auto) 36.9 [place] % (Auto) 7.6 Eos % (Auto) 1.7 Baso % (Auto) 0.5 Lymph # (Auto) 2.3 [place] # (Auto) 0.5 Eos # (Auto) 0.1 Baso # (Auto) 0.0 Abs Immat Gran (auto) 0.02 Absolute Neuts (auto) 3.3 Absolute Nucleated RBC 0.000 Nucleated RBC % (auto) 0.0 Anion Gap 11 L Estim Creat Clear Calc 111.4 Estimated GFR > 60 Random Glucose 97 Calcium 8.4 Total Bilirubin 0.6 AST 19 ALT 54 H Alkaline Phosphatase 66 Total Protein 4.9 L D Albumin 3.1 L D Microbiology Microbiology Results: Microbiology 02/03/22 11:07 Blood Culture - Preliminary Blood - Venous No growth after 48 hours. 02/03/22 11:05 Blood Culture - Preliminary Blood - Venous No growth after 48 hours. Procedures Date of Service Date of Service: 02/06/22 Progress Note: A&P Assessment and plan (1) Gallstone pancreatitis: Status: Acute (2) Smoker: Status: Acute (3) Acute pancreatitis: Status: Acute (4) Cholelithiasis: Status: Acute (5) Substance use disorder: Status: Acute (6) Elevated LFTs: Status: Acute (7) Anxiety and depression: Status: Acute Plan Options including advancing diet and discharge were discussed with the patient. The importance of avoiding unknown medication/drug that can precipitate pancreatitis, overdose and was again reviewed with the patient and apparently understood. Continue NPO and IV fluid. Void bladder insulation technician to OR at noon today. For emre jones today. Time Spent With Patient Time: Total time managing care of this patient today ____ minutes. Quality Stroke Does the patient have a stroke diagnosis?: No VTE Prior VTE?: No VTE Risk Level:: Surgical - moderate VTE Device Contraindication: N/A - Device Ordered VTE Drug Contraindication: Treatment Not Indicated
--- NOTE | 2022-02-06 08:50 | MHC.SHP ---
Pre-Procedural Eval Section A Date of Service: 02/06/22 The patient is an INPATIENT: Yes The History & Physical has been completed within 30 days and I have reviewed it.: Yes Section B Chief Complaint: ? Gallbladder Stones Allergies: Allergies Allergy/AdvReac Type Severity Reaction Status Date / Time iodine [IODINE] Allergy Severe ANGIOEDEMA Verified 02/03/22 13:27 SEAFOOD Allergy Severe ANGIOEDEMA Uncoded 02/03/22 13:27 Plan I have reviewed the history and physical and performed a pertinent physical examination on my patient. No changes have occurred unless specified. Time Spent With Patient Time: Total time managing care of this patient today ____ minutes.
--- NOTE | 2022-02-06 08:54 | W.PM.OPN ---
Operative Note Operative Note Date of Service: 02/06/22 Narrative: Preop diagnosis: [Presumed gallstone pancreatitis; gallstones] Postop diagnosis: [Same] Procedure: [Laparoscopic cholecystectomy] Surgeon: Reji Mckeon MD Assist: [] Anesthesia: [GET, ropivicaine, 0.5% local] Estimated blood loss: [10cc] Specimen: [Gallbladder with contents] Intraoperative findings: [The zack, duodenum and gallbladder were edematous, likely secondary to pancreatitis. Critical view of safety demonstrated: Cystic duct was 4-5 mm, cystic artery 2-3 mm; no obvious cholecystitis or adhesions to the gallbladder were encountered.] Indications: [The patient is a 31-year-old woman with a history of substance abuse presented to the office via emergency department with abdominal pain, diarrhea and a CT confirming enteritis. In the setting of ongoing abdominal pain, an abdominal ultrasound was performed which demonstrated cholelithiasis. The patient was actively smoking and describing conflicting symptoms of gnawing/gastritis type pain as well as possible biliary colic, so a GI referral and evaluation was made. When the patient presented positive for fentanyl, her upper endoscopy was canceled and she failed to follow up with GI. Earlier this week, she had diffuse abdominal pain and reported left-sided abdominal pain to the office, so she was directed to the emergency department where she was noted to have elevated lipase, elevated LFTs, CT consistent with pancreatitis in the setting of known gallstones. The patient notes that she took which she assumed was oxycodone from a friend and again tested positive for fentanyl. The patient states that this was not an attempt to get high, but rather an attempt to treat her abdominal pain. After long discussion regarding the possibility that this unknown med/street drug could have caused her pancreatitis, we also discussed gallstone pancreatitis and options including continued observation, discharged home, completing her GI workup verses cholecystectomy. Given the inherent risks to gallstone pancreatitis which include rehospitalization, multi-system organ failure and , the safest course of action for the patient seemed to be cholecystectomy and I recommended it, reviewed options. The inherent risks of a laparoscopic cholecystectomy, possible open cholecystectomy and possible cholangiogram were reviewed with the patient and include, but are not limited to: Bleeding, infection, the need for an open operation which would require prolonged hospitalization, the possible need for cholangiogram, the unlikely but possible issues of bile leak, bile duct injury, retained common duct stones and recurrent pancreatitis were discussed and apparently understood. The fact that I could not send her home with narcotics in the setting was also discussed and apparently understood. The patient wanted to proceed.] Procedure: [The patient was identified in preoperative holding and again in the operating room and placed supine on the table. The patient voided bladder international student counselor, sequential compression stockings were in place, and antibiotics per protocol were given. The patient was induced in general endotracheal anesthesia administered with excellent effect. An appropriate time-out was performed. A footboard was utilized. The patient's abdomen was widely prepped and draped in the usual manner for surgery using chloraprep. Preemptive local was used at all trocar insertion sites. At the supraumbilical location and after infiltrating local, made a stab incision and placed a Veress needle without difficulty. An appropriate drop test was performed and a pneumoperitoneum of 15 mmHg was obtained using carbon dioxide. opening pressure was 4 mmHg. Next, the needle was withdrawn and a 5 mm/30 degree laparoscoped over Optiview trocar was used to access the abdomen without incident. Upon examining the abdomen, there was no evidence of injury from the Veress needle or trocar. Next, 5 mm trocars were placed in the epigastric, subcostal and right anterior axillary line just above the line of the umbilicus. Under direct laparoscopic vision, the 5 mm umbilical port was upsized to a 12 mm. The patient was then positioned in reverse Trendelenburg position and banked left. The gallbladder was clearly identified and grasped by its fundus. It was retracted cranially and anteriorly and dissection began in the cystic triangle. The cystic duct was identified at its junction on the gallbladder and dissection began laterally, then circumferentially dissected using the [place] dissector and hook. The cystic artery was then carefully identified and circumferentially dissected. Once dissection of both structures was complete and the critical view of safety demonstrated, the duct and artery were double clipped proximally and once distally and sharply divided. Electrocautery was used to remove the gallbladder from its fossa on the liver. Liver bed was inspected for hemostasis and the clips were noted to be on the respective structures. The gallbladder was placed in an Endo-Catch bag and delivered through the umbilicus under direct laparoscopic vision. The abdomen was again inspected with the laparoscoped and a abdomen deflated to assess for hemostasis. The patient was returned to neutral position, the abdomen deflated and the fascia of the supraumbilical incision closed with interrupted Vicryl sutures. Skin was closed with 4-0 Monocryl subcuticular sutures. Mastisol and Steri-Strips were applied followed by Band-Aids. The patient tolerated the procedure well and was extubated recovered in stable condition. All sponge instrument counts were correct.
--- NOTE | 2022-02-06 12:45 | HO.PM.IMPN ---
Subjective Subjective Date of Service: 02/06/22 Interval History: abd pain Review of Systems nausea /vomiting ,abd pain improvin Physical Exam Vital Signs: Vital Signs: Last Vital Signs Temp 97.8 F 02/06/22 11:28 Pulse 57 02/06/22 11:28 Resp 16 02/06/22 11:28 BP 117/72 02/06/22 11:28 Pulse Ox 99 02/06/22 11:28 O2 Del Method 02/06/22 11:28 BMI result Body Mass Index 24.7 ?Appearance: Alert.? Oriented X3.? not in distress.? cvs: [id number], [id number] , no murmur res: clear to auscultation ,no rhonchii or wheezing abd: no rebound or guarding ,mild diffuse abd soarness, bs present. ext pulses present , no cyanosis . neuro: axo3 , nonfocal. Objective Data Active Medications Hydromorphone HCl (Hydromorphone Hcl 0.5 Mg/0.5 Ml Syringe) 0.25 mg IVPUSH Q2H PRN; Protocol PRN Reason: Pain, Severe (Pain Scale 7-10) Last Admin: 02/06/22 08:39 Dose: 0.25 mg Documented By: MICHAEL Lactated Ringer's (Lr) 1,000 mls @ 80 mls/hr IVCONT .[id number] JORGE Last Admin: 02/06/22 05:08 Dose: 100 mls/hr Documented By: GOLDEN Ondansetron HCl (Ondansetron Hcl 4 Mg/2 Ml Vial) 4 mg IVPUSH Q8H PRN PRN Reason: Nausea and Vomiting Labs CBC & Chem 7: 02/06/22 05:07 02/06/22 05:07 Labs: Laboratory Results - last 24 hr 02/06/22 02/06/22 05:07 05:07 MCV 88.6 MCH 28.8 MCHC 32.5 RDW 13.4 Plt Count 213 MPV 10.7 Immature Gran % (Auto) 0.3 Neut % (Auto) 53.0 Lymph % (Auto) 36.9 [place] % (Auto) 7.6 Eos % (Auto) 1.7 Baso % (Auto) 0.5 Lymph # (Auto) 2.3 [place] # (Auto) 0.5 Eos # (Auto) 0.1 Baso # (Auto) 0.0 Abs Immat Gran (auto) 0.02 Absolute Neuts (auto) 3.3 Absolute Nucleated RBC 0.000 Nucleated RBC % (auto) 0.0 Anion Gap 11 L Estim Creat Clear Calc 111.4 Estimated GFR > 60 Random Glucose 97 Calcium 8.4 Total Bilirubin 0.6 AST 19 ALT 54 H Alkaline Phosphatase 66 Total Protein 4.9 L D Albumin 3.1 L D Microbiology Microbiology Results: Microbiology 02/03/22 11:07 Blood Culture - Preliminary Blood - Venous No growth after 48 hours. 02/03/22 11:05 Blood Culture - Preliminary Blood - Venous No growth after 48 hours. Assessment and Plan (1) Gallstone pancreatitis: Status: Acute Plan 31 year old female with history anxiety and depression admitted to General surgery for gallstone pancreatitis with consult placed to medicine for medical management and substance abuse disorder. #Acute gallstone pancreatitis -CT abd/ pelvis and MRCP showing gallstones and mild pancreatitis with associated infiltrative changes and mild peritoneal ascites without evidence of necrosis or pseudocyst formation iv hydration ,pain managemnt, abd pain improving surgery followin #Utox positive for fentanyl -Denies illicit drug use to me, but admitted to taking 2 doses friends oxycodone yesterday to surgeon -Addiction Med consult placed by surgery #Nicotine dependence -Smokes 1ppd cigarettes -COunseled on smoking cessation -NRT declined. [facility] need:Acute gallstone pancreatitis-need possible surgery Time Spent With Patient Time: Total time managing care of this patient today ____ minutes. Quality Stroke Does the patient have a stroke diagnosis?: No VTE Prior VTE?: No VTE Risk Level:: Surgical - moderate VTE Device Contraindication: N/A - Device Ordered VTE Drug Contraindication: Treatment Not Indicated
--- NOTE | 2022-02-06 13:01 | P.CONAN_ITS ---
[facility] Active Problems Active Problems: All Active Problems (Updated 02/05/22 @ 15:20 by Reji Mckeon MD) Gallstone pancreatitis (Acute) Smoker (Acute) Acute pancreatitis (Acute) Abdominal pain (Acute) Cholelithiasis (Acute) Substance use disorder (Acute) Elevated LFTs (Acute) Coccyx pain (Acute) Anxiety and depression (Acute) Past Medical History Medical History Anxiety and depression Coccyx pain Migraine headache Family History Family History Mother Cancer Diabetes Osteoporosis Father No problems noted. Other Substance use disorder Family history of problems with anesthesia: No Surgical History Surgical History No pertinent past surgical history History of Problems with Anesthesia: No Social History Social History Household Members: Family Housing: Apartment Do you presently have visiting nurse or other home services: No Alcohol intake: never Patient Tobacco Use Status: Current everyday Tobacco user Tobacco use type: Cigarette Cigarette Packs Per Day: 1 Cigarettes Per Day: 20.0 e-Cigarette/Vaping Use: Never Used Second Hand Smoke Exposure: Yes service: No Current occupational status: unemployed Cognitive needs: No Hearing needs: No Vision needs: No Meds Allergies Allergy/AdvReac Type Severity Reaction Status Date / Time iodine [IODINE] Allergy Severe ANGIOEDEMA Verified 02/03/22 13:27 SEAFOOD Allergy Severe ANGIOEDEMA Uncoded 02/03/22 13:27 Active Medications: Current Medications Hydromorphone HCl (Hydromorphone Hcl 0.5 Mg/0.5 Ml Syringe) 0.25 mg IVPUSH Q2H PRN; Protocol PRN Reason: Pain, Severe (Pain Scale 7-10) Last Admin: 02/06/22 08:39 Dose: 0.25 mg Lactated Ringer's (Lr) 1,000 mls @ 80 mls/hr IVCONT .[id number] JORGE Last Admin: 02/06/22 05:08 Dose: 100 mls/hr Ondansetron HCl (Ondansetron Hcl 4 Mg/2 Ml Vial) 4 mg IVPUSH Q8H PRN PRN Reason: Nausea and Vomiting Home Medications Medication Instructions Recorded Confirmed Last Taken Type No Known Home Meds 02/03/22 02/03/22 Unknown History Exam Exam Date and Time: February 06, 2022 1301 Height,Weight and Vital Signs: Height 5 ft 2 in Weight 61.235 kg Last Vital Signs Temp 97.8 F 02/06/22 11:28 Pulse 57 02/06/22 11:28 Resp 16 02/06/22 11:28 BP 117/72 02/06/22 11:28 Pulse Ox 99 02/06/22 11:28 O2 Del Method 02/06/22 11:28 Pertinent Lab Results Pertinent Lab Results: Laboratory Tests 02/03/22 02/03/22 02/03/22 10:59 10:59 10:59 WBC RBC Hgb Hct MCV MCH MCHC RDW Plt Count MPV Immature Gran % (Auto) Neut % (Auto) Lymph % (Auto) [place] % (Auto) Eos % (Auto) Baso % (Auto) Lymph # (Auto) [place] # (Auto) Eos # (Auto) Baso # (Auto) Abs Immat Gran (auto) Absolute Neuts (auto) Absolute Nucleated RBC Nucleated RBC % (auto) PT INR Sodium Potassium Chloride Carbon Dioxide Anion Gap BUN Creatinine Estim Creat Clear Calc Estimated GFR Random Glucose Calcium Magnesium Total Bilirubin Direct Bilirubin AST ALT Alkaline Phosphatase Total Protein Albumin Lipase Urine Color Yellow Urine Appearance Clear Urine pH 6.5 Ur Specific [place] 1.010 Urine Protein Negative Urine Glucose (UA) Negative Urine Ketones Trace Urine Blood Negative Urine Nitrite Negative Ur Leukocyte Esterase Negative Urine Test Urine Opiates Screen Urine Fentanyl Screen Ur Barbiturates Screen Ur Phencyclidine Scrn Ur Amphetamines Screen U Benzodiazepines Scrn Urine Cocaine Screen U Marijuana (THC) Screen COVID-19 (MAYELIN) Negative COVID-19 Clin Com See Note Influenza Type A (ROGE) Negative Influenza Type B (ROGE) Negative Influenza A & B Note See Note 02/03/22 02/03/22 02/03/22 10:59 10:59 11:05 WBC 10.6 RBC 4.80 Hgb 13.9 Hct 41.3 MCV 86.0 MCH 29.0 MCHC 33.7 RDW 13.2 Plt Count 285 MPV 9.5 Immature Gran % (Auto) 0.2 Neut % (Auto) 77.5 H Lymph % (Auto) 16.9 L [place] % (Auto) 4.8 Eos % (Auto) 0.4 Baso % (Auto) 0.2 Lymph # (Auto) 1.8 [place] # (Auto) 0.5 Eos # (Auto) 0.0 Baso # (Auto) 0.0 Abs Immat Gran (auto) 0.02 Absolute Neuts (auto) 8.2 Absolute Nucleated RBC 0.000 Nucleated RBC % (auto) 0.0 PT INR Sodium Potassium Chloride Carbon Dioxide Anion Gap BUN Creatinine Estim Creat Clear Calc Estimated GFR Random Glucose Calcium Magnesium Total Bilirubin Direct Bilirubin AST ALT Alkaline Phosphatase Total Protein Albumin Lipase Urine Color Urine Appearance Urine pH Ur Specific [place] Urine Protein Urine Glucose (UA) Urine Ketones Urine Blood Urine Nitrite Ur Leukocyte Esterase Urine Test NEGATIVE Urine Opiates Screen Not Detected Urine Fentanyl Screen POSITIVE H Ur Barbiturates Screen Not Detected Ur Phencyclidine Scrn Not Detected Ur Amphetamines Screen Not Detected U Benzodiazepines Scrn Not Detected Urine Cocaine Screen Not Detected U Marijuana (THC) Screen Not Detected COVID-19 (MAYELIN) COVID-19 Clin Com Influenza Type A (ROGE) Influenza Type B (ROGE) Influenza A & B Note 02/03/22 02/03/22 02/04/22 11:06 11:06 05:20 WBC RBC Hgb Hct MCV MCH MCHC RDW Plt Count MPV Immature Gran % (Auto) Neut % (Auto) Lymph % (Auto) [place] % (Auto) Eos % (Auto) Baso % (Auto) Lymph # (Auto) [place] # (Auto) Eos # (Auto) Baso # (Auto) Abs Immat Gran (auto) Absolute Neuts (auto) Absolute Nucleated RBC Nucleated RBC % (auto) PT 14.4 H INR 1.2 H Sodium 140 141 Potassium 3.8 3.9 Chloride 104 110 H Carbon Dioxide 27 24 Anion Gap 13 11 L BUN 9 10 Creatinine 0.71 0.61 Estim Creat Clear Calc 98.9 115.0 Estimated GFR > 60 > 60 Random Glucose 112 76 Calcium 9.3 8.4 D Magnesium 2.0 Total Bilirubin 2.5 H 2.0 H Direct Bilirubin 0.7 H AST 61 H 26 ALT 166 H 92 H Alkaline Phosphatase 100 68 Total Protein 6.2 L 4.8 L Albumin 4.0 3.1 L Lipase 314 H 114 H Urine Color Urine Appearance Urine pH Ur Specific [place] Urine Protein Urine Glucose (UA) Urine Ketones Urine Blood Urine Nitrite Ur Leukocyte Esterase Urine Test Urine Opiates Screen Urine Fentanyl Screen Ur Barbiturates Screen Ur Phencyclidine Scrn Ur Amphetamines Screen U Benzodiazepines Scrn Urine Cocaine Screen U Marijuana (THC) Screen COVID-19 (MAYELIN) COVID-19 Clin Com Influenza Type A (ROGE) Influenza Type B (ROGE) Influenza A & B Note 02/04/22 02/05/22 02/05/22 05:20 05:02 05:02 WBC 9.4 6.9 RBC 3.50 L D 3.27 L Hgb 10.3 L D 9.6 L Hct 31.2 L D 29.3 L MCV 89.1 89.6 MCH 29.4 29.4 MCHC 33.0 32.8 RDW 13.5 13.3 Plt Count 224 j 197 MPV 10.7 10.5 Immature Gran % (Auto) 0.3 0.1 Neut % (Auto) 65.3 53.7 Lymph % (Auto) 26.6 37.2 [place] % (Auto) 6.4 7.3 Eos % (Auto) 1.1 1.3 Baso % (Auto) 0.3 0.4 Lymph # (Auto) 2.5 2.6 [place] # (Auto) 0.6 0.5 Eos # (Auto) 0.1 0.1 Baso # (Auto) 0.0 0.0 Abs Immat Gran (auto) 0.03 0.01 Absolute Neuts (auto) 6.2 3.7 Absolute Nucleated RBC 0.000 0.000 Nucleated RBC % (auto) 0.0 0.0 PT INR Sodium 142 Potassium 4.3 Chloride 108 Carbon Dioxide 28 Anion Gap 10 L BUN 7 L Creatinine 0.61 Estim Creat Clear Calc 115.0 Estimated GFR > 60 Random Glucose 103 Calcium 8.6 Magnesium Total Bilirubin 0.9 Direct Bilirubin AST 20 ALT 65 H Alkaline Phosphatase 70 Total Protein 4.8 L Albumin 3.1 L Lipase 43 Urine Color Urine Appearance Urine pH Ur Specific [place] Urine Protein Urine Glucose (UA) Urine Ketones Urine Blood Urine Nitrite Ur Leukocyte Esterase Urine Test Urine Opiates Screen Urine Fentanyl Screen Ur Barbiturates Screen Ur Phencyclidine Scrn Ur Amphetamines Screen U Benzodiazepines Scrn Urine Cocaine Screen U Marijuana (THC) Screen COVID-19 (MAYELIN) COVID-19 Clin Com Influenza Type A (ROGE) Influenza Type B (ROGE) Influenza A & B Note 02/06/22 02/06/22 05:07 05:07 WBC 6.3 RBC 3.33 L Hgb 9.6 L Hct 29.5 L MCV 88.6 MCH 28.8 MCHC 32.5 RDW 13.4 Plt Count 213 MPV 10.7 Immature Gran % (Auto) 0.3 Neut % (Auto) 53.0 Lymph % (Auto) 36.9 [place] % (Auto) 7.6 Eos % (Auto) 1.7 Baso % (Auto) 0.5 Lymph # (Auto) 2.3 [place] # (Auto) 0.5 Eos # (Auto) 0.1 Baso # (Auto) 0.0 Abs Immat Gran (auto) 0.02 Absolute Neuts (auto) 3.3 Absolute Nucleated RBC 0.000 Nucleated RBC % (auto) 0.0 PT INR Sodium 143 Potassium 4.2 Chloride 108 Carbon Dioxide 28 Anion Gap 11 L BUN 5 L Creatinine 0.63 Estim Creat Clear Calc 111.4 Estimated GFR > 60 Random Glucose 97 Calcium 8.4 Magnesium Total Bilirubin 0.6 Direct Bilirubin AST 19 ALT 54 H Alkaline Phosphatase 66 Total Protein 4.9 L D Albumin 3.1 L D Lipase Urine Color Urine Appearance Urine pH Ur Specific [place] Urine Protein Urine Glucose (UA) Urine Ketones Urine Blood Urine Nitrite Ur Leukocyte Esterase Urine Test Urine Opiates Screen Urine Fentanyl Screen Ur Barbiturates Screen Ur Phencyclidine Scrn Ur Amphetamines Screen U Benzodiazepines Scrn Urine Cocaine Screen U Marijuana (THC) Screen COVID-19 (MAYELIN) COVID-19 Clin Com Influenza Type A (ROGE) Influenza Type B (ROGE) Influenza A & B Note Airway Mallampati Class: II TM Dist: >3cm Neck ROM: Full Assessment and Plan Assessment Anesthesia Assessment: Anesthesia Plan Discussed, Smoking Cess. Discussed and Chart Reviewed Final Anesthetic Review Family History of Problems with Anesthesia: No History of Problems with Anesthesia: No NPO: Yes ASA Class: II Final Preanesthetic Review: No Changes in Pt Med Stat, Meds/Allgs Chart Reviewed, Consent Obtained/Reviewed and Anes Risks/Benef Reviewed Patient Risk: Intermediate Procedure Risk: Intermediate Anesthetic Plan Anesthetic Plan: GA Disposition: Standard PACU
[2022-02-06] MEDS: Acetaminophen 325 MG TABLET 975 MG PO (13:49)
[2022-02-06] MEDS: oxyCODONE HCl Immed Release 5 MG TABLET PO (13:50)
[2022-02-07 03:18] VITALS: BP 100/57; PULSE 52; RESP 16; TEMP 36.2; O2SAT 96
[2022-02-07] MEDS: Lactated Ringers 1,000 ML 80 ML IVCONT ×2 (05:45→08:05)
[2022-02-07] MEDS: HYDROmorphone HCl 0.5 MG/0.5 ML SYRINGE 0.25 MG IVPUSH (05:48)
[2022-02-07 07:53] VITALS: BP 103/62; PULSE 63; RESP 15; TEMP 36.8; O2SAT 97
--- NOTE | 2022-02-07 09:31 | PM.PNGS ---
Subjective Subjective Date of Service: 02/07/22 Interval history: says she feels better ready to be discharged Physical Exam Vital Signs: Vital Signs: Last Vital Signs Temp 98.3 F 02/07/22 07:53 Pulse 63 02/07/22 07:53 Resp 15 02/07/22 07:53 BP 103/62 02/07/22 07:53 Pulse Ox 97 02/07/22 07:53 O2 Del Method 02/07/22 07:53 O2 Flow Rate 2 02/06/22 14:00 BMI result Body Mass Index 24.7 Const: General: comfortable and no acute distress Resp: Effort & Inspection: normal respiratory effort Cardio: Rate: regular rate GI: Other: incisions clean and dry Palpation (GI): Soft to palpation and not firm Objective Data Active Medications Acetaminophen (Acetaminophen 325 Mg Tablet) 975 mg PO Q6H PRN PRN Reason: Pain, Mild (Pain Scale 1-3) Last Admin: 02/06/22 13:49 Dose: 975 mg Documented By: ALLYSSA Fentanyl (Fentanyl Citrate/Pf 100 Mcg/2 Ml Vial) 50 mcg IVPUSH Q5M PRN; Protocol PRN Reason: Pain, Severe (Pain Scale 7-10) Hydromorphone HCl (Hydromorphone Hcl 0.5 Mg/0.5 Ml Syringe) 0.25 mg IVPUSH Q2H PRN; Protocol PRN Reason: Pain, Severe (Pain Scale 7-10) Last Admin: 02/07/22 05:48 Dose: 0.25 mg Documented By: GOLDEN Lactated Ringer's (Lr) 1,000 mls @ 80 mls/hr IVCONT .[id number] JORGE Last Admin: 02/07/22 08:05 Dose: 80 mls/hr Documented By: KATALINA Ibuprofen (Ibuprofen 400 Mg Tablet) 400 mg PO Q6H PRN PRN Reason: Pain, Mild (Pain Scale 1-3) Ondansetron HCl (Ondansetron Hcl 4 Mg/2 Ml Vial) 4 mg IVPUSH Q8H PRN PRN Reason: Nausea and Vomiting Ondansetron HCl (Ondansetron Hcl 4 Mg/2 Ml Vial) 4 mg IVPUSH ONCE PRN PRN Reason: Nausea and Vomiting Labs CBC & Chem 7: 02/06/22 05:07 02/06/22 05:07 Procedures Date of Service Date of Service: 02/07/22 Progress Note: A&P Assessment and plan (1) Gallstone pancreatitis: Status: Acute Assessment and Plan: s/p emre alonzo says she has good pain control tolerating diet as per Dr. Linda LOJA pain meds ok to dc home dc instructions reviewed with patient she is comfortable with plan mom at bedside as well Time Spent With Patient Time: Total time managing care of this patient today ____ minutes. Quality Stroke Does the patient have a stroke diagnosis?: No VTE Prior VTE?: No VTE Risk Level:: Surgical - moderate VTE Device Contraindication: N/A - Device Ordered VTE Drug Contraindication: Treatment Not Indicated
--- NOTE | 2022-02-07 10:05 | P.PNIM_ITS ---
Subjective Subjective Date of Service: 02/07/22 Interval History: abd pain Review of Systems abd pain seems improved ate breakfast Physical Exam Vital Signs: Vital Signs: Last Vital Signs Temp 98.3 F 02/07/22 07:53 Pulse 63 02/07/22 07:53 Resp 15 02/07/22 07:53 BP 103/62 02/07/22 07:53 Pulse Ox 97 02/07/22 07:53 O2 Del Method 02/07/22 07:53 O2 Flow Rate 2 02/06/22 14:00 BMI result Body Mass Index 24.7 Appearance: Alert.? Oriented X3.? not in distress.? cvs: [id number], [id number] , no murmur res: clear to auscultation ,no rhonchii or wheezing abd: no rebound or guarding ,abd discomfort improved,incision are dry and clean, bs present. ext pulses present , no cyanosis . neuro: axo3 , nonfocal Objective Data Active Medications Acetaminophen (Acetaminophen 325 Mg Tablet) 975 mg PO Q6H PRN PRN Reason: Pain, Mild (Pain Scale 1-3) Last Admin: 02/06/22 13:49 Dose: 975 mg Documented By: ALLYSSA Fentanyl (Fentanyl Citrate/Pf 100 Mcg/2 Ml Vial) 50 mcg IVPUSH Q5M PRN; Protocol PRN Reason: Pain, Severe (Pain Scale 7-10) Hydromorphone HCl (Hydromorphone Hcl 0.5 Mg/0.5 Ml Syringe) 0.25 mg IVPUSH Q2H PRN; Protocol PRN Reason: Pain, Severe (Pain Scale 7-10) Last Admin: 02/07/22 05:48 Dose: 0.25 mg Documented By: GOLDEN Lactated Ringer's (Lr) 1,000 mls @ 80 mls/hr IVCONT .[id number] JORGE Last Admin: 02/07/22 08:05 Dose: 80 mls/hr Documented By: KATALINA Ibuprofen (Ibuprofen 400 Mg Tablet) 400 mg PO Q6H PRN PRN Reason: Pain, Mild (Pain Scale 1-3) Ondansetron HCl (Ondansetron Hcl 4 Mg/2 Ml Vial) 4 mg IVPUSH Q8H PRN PRN Reason: Nausea and Vomiting Ondansetron HCl (Ondansetron Hcl 4 Mg/2 Ml Vial) 4 mg IVPUSH ONCE PRN PRN Reason: Nausea and Vomiting Labs CBC & Chem 7: 02/06/22 05:07 02/06/22 05:07 Assessment and Plan (1) Gallstone pancreatitis: Status: Acute Plan 31 year old female with history anxiety and depression admitted to General surgery for gallstone pancreatitis with consult placed to medicine for medical management and substance abuse disorder. #Acute gallstone pancreatitis -CT abd/ pelvis and MRCP showing gallstones and mild pancreatitis with associated infiltrative changes and mild peritoneal ascites without evidence of necrosis or pseudocyst formation abd pain seems improved s/p lap alonzo day2. surgery followin #Utox positive for fentanyl -Denies illicit drug use to me, but admitted to taking 2 doses friends oxycodone . seen by Addiction-addressed question/concerns #Nicotine dependence -Smokes 1ppd cigarettes -COunseled on smoking cessation -NRT declined. dvt prophylax: [facility] devices. Acute gallstone pancreatitis-s/p lap alonzo ,seems improved ,will sign off-[place] her management as per primary team. Time Spent With Patient Time: Total time managing care of this patient today ____ minutes. Quality Stroke Does the patient have a stroke diagnosis?: No VTE Prior VTE?: No VTE Risk Level:: Surgical - moderate VTE Device Contraindication: N/A - Device Ordered VTE Drug Contraindication: Treatment Not Indicated
--- NOTE | 2022-02-07 10:42 | MHC.CM.PN ---
home - self care RN aware of plan.
--- NOTE | 2022-02-07 11:07 | HO.POSTANES ---
Post Anesthesia Evaluation Post Anesthesia Evaluation Vital Signs: Vital Signs Temp Pulse Resp BP Pulse Ox O2 Del Method 02/07/22 07:53 98.3 F 63 15 103/62 97 Room Air 02/07/22 03:18 97.2 F 52 16 100/57 L 96 Room Air Anesthesia: General Endotracheal-GETA Mental Status: Awake Pain Control: Satisfactory Nausea/Vomiting: None Hydration: Adequate Anesthesia-Related Issues: No Anes. Related Issues
--- NOTE | 2022-02-09 10:16 | PM.DS ---
DS: Providers Provider Date of Service: 02/09/22 Date of admission: 02/03/22 16:20 Primary care physician: Irene Lantigua MD Consults: 02/03/22 16:21 Consult to Hospitalist Routine Consulting Provider: Hospitalist Reason For Exam: substance use d/o, fentanyl positive 02/03/22 16:29 Addiction Medicine Routine Consulting Provider: Addiction Covering Reason for consultation: fentanyl use Has provider been notified: No DS: Diagnosis Discharge Diagnosis (1) Gallstone pancreatitis: Status: Acute DS: Summary Hospital Course Hospital Course: See admitting H and P for full details. Briefly, this 31-year-old woman with known gallstones presented with pancreatitis after taking an unknown street drug that contained fentanyl based on her urine toxicology. Patient has a history of substance abuse but states that she took this medicine due to abdominal pain. She had previously been diagnosed with enteritis and diarrhea based on CT and history and was sent to GI for evaluation, but due to testing positive for fentanyl, her EGD was rescheduled and the patient never followed up. The patient was admitted and placed on bowel rest. Over the next few days, her labs normalized and the pros and cons of laparoscopic cholecystectomy were reviewed with the patient. She seemed understand her options and wanted me to proceed. Because of her history of substance abuse and testing positive on 2 separate occasions for fentanyl as well verbally confirming that she was taking which she believed was oxycodone purchased from another individual, we discussed the concerns of discharging her with additional narcotics. She was kept in the hospital, tolerated her clear liquid diet and was discharged on a low-fat diet with no narcotics. Overall condition at time of discharge is improved Time Spent with Patient Time attestation: Total time managing care of this patient today ____ minutes. Discharge coordination time: Less than 30 minutes Quality: Safe Use of Opioids Does Pt have an Active Cancer Diagnosis on the Problem List?: No Quality: Stroke Does the patient have a stroke diagnosis?: No Physical Exam Vital Signs: Vital Signs: Last Vital Signs Temp 98.3 F 02/07/22 07:53 Pulse 63 02/07/22 07:53 Resp 15 02/07/22 07:53 BP 103/62 02/07/22 07:53 Pulse Ox 97 02/07/22 07:53 O2 Del Method 02/07/22 07:53 O2 Flow Rate 2 02/06/22 14:00 BMI result Body Mass Index 24.7 DS: Data Data Completed and Pending Pending studies at discharge: Pending at discharge 02/06/22 13:15 Surgical [PTH] Routine Discharge Plan Discharge Anticipated Discharge Date/Time: 02/07/22 12:00 Patient Disposition: Home, Self-Care Discharge Diagnosis: Pancreatitis, possibly from gallstones Referrals: Irene Combs MD [Primary Care Provider] - 1 Week Reji Mckeon MD [Physician] - 1 Week Discharge Medications: No Action No Known Home Meds Discharge Orders: Discharge Order (Routine); Ordered 02/07/22 Ordered By: Nuno Miller Diet: Low Fat Activity on Discharge: No heavy lifting Stand Alone Forms: Patient Portal Discharge page Activity Restrictions/Additional Instructions: You had a laparoscopic cholecystectomy performed by Dr. Mckeon. It is normal to experience some neck or shoulder pain from the gas used to inflate your abdomen. It is also normal to have pain or discomfort in your abdomen/belly as well as at the trocar sites (small incisions). This discomfort will resolve over the next 1-3 days, however, if it gets progressively worse, if you should develop worsening pain, nausea, vomiting and cannot keep liquids down, chest pain, difficulty breathing or shortness of breath, fevers over 100F please report to the nearest emergency department. If you have pain similar to your pancreatitis return after surgery, please come to the emergency room to be evaluated. Unless otherwise directed by Dr. Mckeon, you should resume taking your regular medications. Contact your primary care provider for follow-up regarding smoking/nicotine cessation Contact your addiction counselor. I do not recommend taking unknown medications from other people since they can contain fentanyl and unknown medication/drugs that can cause pancreatitis. If it is not an eujl-wre-xtrtmgx medication or a prescription obtained from a pharmacy be a doctor, do not take it. As Dr. Mckeon reviewed, you must not lift more than 20 lb for the next 4 weeks. Strenuous activities can tear out your sutures and cause an incisional hernia that would require another operation. Activities to be avoided include: sports, running, bicycling, yoga, lifting more than 20 lb, digging, gardening, splitting/carrying wood, swimming, hiking uphill, and other activities. If you have questions regarding this specific activity, please check with Dr. Mckeon. If your incisions become red, swollen, tender or draining pus, please contact Dr. Mckeon or go to the nearest emergency department. Do not shower or bathe for 48 hours. If there are bandages on your incisions, remove them in 48 hours. Do not allow your bandages to become wet for 48 hours. Do not soak in a tub or swimming pool until your incisions have completely sealed, usually 2 or more weeks. After the dressings are removed in 48 hours, you will notice paper tapes called butterflies/Steri-Strips. These tapes will fall off on their own in 1-2 weeks. You do not need to apply another bandage unless your clothing irritates your incisions. If you need to place another Band-Aid on your incisions, be sure to wait until the Steri strip is dry. Anesthesia may cause constipation. Please purchase nwoc-hrj-orsxkdd stool softener known as Colace/docusate, 100 mg. Take 2 tablets with breakfast and the morning and 2 tablets in the evening after dinner until your bowels are moving and urine or longer taking narcotics. Please note that if you are not taking narcotics, the general anesthesia for the procedure can still cause constipation. If you experience diarrhea, stop taking the stool softener medicine. You can take khap-nqc-osbfjtg Tylenol/acetaminophen with nwrk-qfb-iwkooie ibuprofen or naproxen for pain unless you have an allergy or medical reason you are not not allowed to take these medications, such as peptic ulcers, taking blood thinners or kidney problems. You should also use ice packs to the operative site to help minimize pain and swelling for the first 3 days, or as needed afterwards. Unless there is a medical reason to avoid these medicines, you should take 2 yrni-agt-zcbdztd Tylenol with two (2) pntz-cey-jizvdol ibuprofen together, every 6 hours for the first 3 days to help with pain. Remember that the gallbladder helps to to digest fatty foods. If you eat fried foods; rich, creamy sauces; cheese; gravies or other such heavy, greasy foods, you will likely develop gas and bloating and diarrhea. To minimize this risk, eat a high protein, high-fiber, low-fat diet for the next few weeks. Care Plan Goals: pain management Health Concerns: recent surgery Plan of Treatment: as per Dr. FREEDOM Mckeon pain meds Assessment: doing well Discharge Date/Time: 02/07/22 10:42
== END 2022-02-07 10:42 | disposition home or self-care (01) | DRG 263 ==
LOC: HO.ED 16:00 → HO.EDOVER 16:27 → HO.S3 02-04 13:58
PROVIDERS: Physician Assistant; Admitting Provider Surgery; Emergency Provider Emergency Medicine; PCP Internal Medicine; Responsible Provider Internal Medicine; Visit Provider Surgery
PROC: 0FT44ZZ Resection of Gallbladder, Percutaneous Endoscopic Approach (ICD-10-PCS; CPT 47562; principal; 2022-02-06 12:00)
DX: K80.20 Calculus of gallbladder without cholecystitis without obstruction (principal); K85.10 Biliary acute pancreatitis without necrosis or infection; F17.210 Nicotine dependence, cigarettes, uncomplicated; F32.A Depression, unspecified; F41.9 Anxiety disorder, unspecified; Z71.6 Tobacco abuse counseling; F19.10 Other psychoactive substance abuse, uncomplicated; Z20.822 Contact with and (suspected) exposure to COVID-19
CPT/HCPCS: 47562; 36415; 74177; 74181; 80048; 80053; 80076; 80307; 81003; 81025; 83690; 83735; 85025; 85610; 87040; 87502; 87635; 88304; 93005; 99285; J0690; J1100; J1170; J1885; J2250; J2405; J2795; J3010; Q9967

== ENCOUNTER → 2022-02-13 14:02 | Outpatient (BNVA) | payer OTHER, SELFPAY | PROVIDERS: PCP Internal Medicine; Referring Provider Internal Medicine; Visit Provider Surgery | DX: Z13.89 Encounter for screening for other disorder (principal) ==

== ENCOUNTER 2023-07-22 13:36 | Outpatient (AMB) | payer OTHER, SELFPAY ==
[2023-07-22 13:46] VITALS: BP 116/72; BMI 25.6
--- NOTE | 2023-07-22 13:46 | MHC.PC.OV ---
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 Required: No Accompanied by: Sister Allergies iodine [IODINE] Allergy (Severe, Verified 07/22/23 14:11) ANGIOEDEMA SEAFOOD Allergy (Severe, Uncoded 07/22/23 14:11) ANGIOEDEMA Medication List - Last Reconciled 07/22/23 by Irene Lantigua MD No Known Home Meds Tobacco use date assessed: 07/22/23 Dental Screening Dental Screen Date: 07/22/23 Did you have a dental visit in the last 12 months?: Yes Did you have a dental problem in the last 6 months where you did not have access to dental care?: No Was dental information given to patient?: Patient has dentist HPI HPI Comments History of Present Illness Details This is a 32-year-old female with history of depression and anxiety and polysubstance abuse including oxycodone and fentanyl while that comes for her physical exam accompanied by sister. Pap smears are up-to-date. She was positive for syphilis and herpes and did get treated for syphilis. Has not had herpes breakout. Used to be on Vistaril for her anxiety. Also has acne vulgaris and once a Dermatology referral. Complains of left index finger pain occasionally. [facility] Medical History (Updated 07/22/23 @ 14:28 by Irene Lantigua MD) Migraine headache Coccyx pain Anxiety and depression Surgical History (Updated 07/22/23 @ 14:15 by Irene Lantigua MD) Tubal ligation status History of cholecystectomy History of No pertinent past surgical history Family History Mother Cancer Diabetes Osteoporosis Father No problems noted. Other Substance use disorder Social History Household Members: Family Housing: Apartment Do you presently have visiting nurse or other home services: No Alcohol intake: never Patient Tobacco Use Status: Current everyday Tobacco user Tobacco use type: Cigarette Cigarettes Per Day: 10 e-Cigarette/Vaping Use: Never Used Second Hand Smoke Exposure: Yes service: No Current occupational status: unemployed Cognitive needs: No Hearing needs: No Vision needs: No Questionnaire PHQ-9 Over the last 2 weeks, how often have you been bothered by any of the following problems? 1. Little interest or pleasure in doing things: not at all 2. Feeling down, depressed, or hopeless: not at all 3. Trouble falling or staying asleep, or sleeping too much: not at all 4. Feeling tired or having little energy: not at all 5. Poor appetite or overeating: not at all 6. Feeling bad about yourself - or that you are a failure or have let yourself or your family down: not at all 7. Trouble concentrating on things, such as reading the newspaper or watching television: not at all 8. Moving or speaking so slowly that other people could have noticed. Or the opposite - being so fidgety or restless that you have been moving around a lot more than usual: not at all 9. Thoughts that you would be better off or of hurting yourself in some way: not at all Total score: 0 Source: Developed by Drs. Eyal Ocasio, Марина Davis, Isac Eid and colleagues, with an educational marshall from [employer]. Thrive Questionnaire Date Thrive assessed: 07/22/23 I am a: Patient What is your living situation today?: I have a steady place to live Within the past 12 months, did the food you bought not last and you didn't have the money to get more?: Never true Within the past 12 months, did you worry whether your food would run out before you got money to buy more?: Never true Do you have trouble paying for medicines?: No Do you have trouble getting transportation to medical appointments?: No Do you have trouble paying your heating and electricity bill?: No Do you have trouble taking care of your child, family member or friend?: No Do you have trouble with day-to-day activities such as bathing, preparing meals, shopping, managing finances, etc.?: No Are you currently unemployed and looking for a job?: No Are you interested in more education?: No Please select the resources that you would like help with: None Currently or been in a relationship where the following occur: no concerns reported THRIVE Score: 0 AUDIT C Alcohol Use Questionnaire (AUDIT-C) 1. How often do you have a drink containing alcohol?: Never Total Score: 0 ROSA-7 AMB Questionnaire ROSA-7 Date ROSA - 7 assessed: 07/22/23 Feeling nervous, anxious, or on edge: 0 = Not at all Not being able to stop or control worryin = Not at all Worrying too much about different things: 0 = Not at all Trouble relaxin = Not at all Being so restless that it is hard to sit still: 0 = Not at all Becoming easily annoyed or irritable: 0 = Not at all Feeling afraid as if something awful might happen: 0 = Not at all Total ROSA-7 score (0-4 normal; 5-9 mild; 10-14 moderate; 15-21 severe): 0 Source: Developed by Drs. Eyal Ocasio, Марина Davis, Isac Eid and colleagues, with an educational marshall from [employer]. Review of Systems Const All systems reviewed & are unremarkable except as noted in HPI and below Card Denies chest pain at rest, Denies chest pain with activity, Denies edema, Denies irregular heart rhythm, Denies claudication, Denies dyspnea, Denies dyspnea on exertion, Denies orthopnea, Denies paroxysmal nocturnal dyspnea and Denies slow heart rate Resp Denies cough, Denies dyspnea and Denies dyspnea on exertion GI Denies abdominal pain, Denies change in bowel habits, Denies excessive flatus, Denies nausea and Denies vomiting Denies urinary incontinence, Denies urinary hesitancy and Denies urinary urgency Musc Denies abnormal gait, Denies atrophy, Denies deformity and Denies limited range of motion Skin/Breast Denies bleeding lesions, Denies changing lesions and Denies rash Neuro Denies abnormal gait, Denies behavioral changes, Denies confusion and Denies lack of coordination Psych Denies behavioral changes and Denies confusion Physical exam (Primary Care) Vital Signs: Last Vital Signs BP 116/72 07/22/23 13:46 BMI result Body Mass Index 25.6 Tobacco/Smoking Status: Tobacco use Status Tobacco use date assessed 07/22/23 07/22/23 13:54 Patient Tobacco Use Status Current everyday Tobacco 07/22/23 13:54 Tobacco use type Cigarette 07/22/23 13:54 e-Cigarette/Vaping Use Never Used 07/22/23 13:54 PHQ-9: PHQ-9 Score PHQ-9: Total score 0 07/22/23 14:13 Thrive Assessment: Date of Thrive Assessment Date Thrive assessed 07/22/23 07/22/23 13:54 Currently or been in a relationship where the following occur: no concerns reported Const General: No confusion Orientation/consciousness: patient oriented x3 and No confusion HENMT Head: Yes normal to inspection, Yes normocephalic and Yes atraumatic Ears: external ears normal Eyes General: appearance normal, both eyes and all related structures Eyelids: Yes eyelids normal Conjunctivae: conjunctivae normal Neck Neck: Yes normal visual inspection and Yes supple Resp Effort & Inspection: normal respiratory effort Auscultation: clear to auscultation bilaterally Cardio Jugular venous distension: no JVD Rate: regular rate Rhythm: regular rhythm Heart sounds: S1 normal heart sound present and S2 normal heart sound present GI Inspection: Yes normal to inspection Palpation (GI): Soft to palpation and nontender Auscultation: normal bowel sounds Skin General skin exam: no rashes or lesions noted Neuro General: patient oriented x3, no focal motor deficits and No confusion Extrem General: Yes full ROM Psych Appearance: grossly normal Assessment and Plan Assessment & Plan (1) Physical exam: Code(s): Z00.00 - Encounter for general adult medical examination without abnormal findings Plan: Repeat in a year. Orders: Orders Complete Blood Count Auto Diff Today D64.9 - Anemia, unspecified IRON PROFILE Today D64.9 - Anemia, unspecified Comprehensive [place]. Panel Fast Today Z00.00 - Encounter for general adult medical examination without abnormal findings XR hand LT 2V Today M79.642 - Pain in left hand Lipid Panel Today Z00.00 - Encounter for general adult medical examination without abnormal findings Referrals Dermatology Referral L70.0 - Acne vulgaris Medications: New hydroxyzine pamoate (Vistaril) 25 mg PO BID PRN 60 caps 0RF anxiety 30 days doxycycline hyclate 100 mg PO DAILY 90 tabs 1RF 90 days L70.0 - Acne vulgaris Coding Level of Care Code Est Pt Prev Care 18-39y(38359) Diagnoses Physical exam Z00.00 Time Spent (min) 33
== END 2023-07-22 14:24 | disposition home or self-care (01) ==
PROVIDERS: PCP Internal Medicine; Visit Provider Internal Medicine
DX: Z00.00 Encounter for general adult medical examination without abnormal findings (principal)
CPT/HCPCS: 99395

== ENCOUNTER 2023-09-09 06:08 | Outpatient (REF) | payer OTHER, SELFPAY ==
--- NOTE | ~2023-09-09 | XR_ITS ---
EXAMINATION: XR HAND, LEFT CLINICAL INFORMATION: Pain in left hand COMPARISON: X-rays of the left hand May 2007 TECHNIQUE: PA, lateral, and oblique views of the left hand. FINDINGS: The bones and soft tissues are normal. No fracture. Alignment is anatomic. Joint spaces are maintained. No erosions or soft tissue calcifications. XR/XR hand LT 2V IMPRESSION: Normal left hand.
[2023-09-09 06:22] LABS: MANUAL DIFF FLAG NO
[2023-09-09 07:19] LABS: Basophils Percent Auto 0.5 % (0-2); Eosinophils Absolute Auto 0.1 X10*3/uL (0.0-0.4); Eosinophils Percent Auto 1.9 % (0-4); Hemoglobin 12.2 g/dl (12.0-16.0); Imm Gran Abs Auto 0.01 X10*3/uL (0.00-0.03); Imm Gran Pct Auto 0.1 % (0.0-0.4); Lymphocytes Absolute Auto 3.5 X10*3/uL (1.2-4.9); Mean Corpuscular Hemoglobin 28.4 pg (27.0-33.0); Mean Corpuscular Volume 86.2 fL (80.0-98.0); Mean Platelet Volume 10.8 fL (9.4-12.3); Monocytes Absolute Auto 0.5 X10*3/uL (0.1-1.2); Monocytes Percent Auto 6.4 % (2-11); Neutrophils Absolute Auto 3.4 x10*3/uL (2.0-8.3); Neutrophils Percent Auto 45.1 % (45-73); Platelet Count 300 X10*3/uL (160-400); Red Blood Count 4.29 X10*6/uL (4.20-5.50); Red Cell Distribution Width 13.9 % (11.0-16.0); White Blood Count 7.6 X10*3/uL (4.8-10.8)
[2023-09-09 07:52] LABS: Alanine Aminotransferase 21 U/L (0-31); Albumin Level 4.3 g/dL (3.5-5.0); Alkaline Phosphatase 69 U/L (39-117); Anion Gap 15 (12-20); Aspartate Amino Transferase 16 U/L (5-31); Bilirubin Total 1.6 mg/dL (0.0-1.0); Blood Urea Nitrogen 11 mg/dL (9-16); Calcium 9.4 mg/dL (8.4-10.2); Carbon Dioxide 23 mmol/L (22-29); Chloride 107 mmol/L (96-108); Cholesterol 154 mg/dL (<200); Estimated Glomerular Filt Rate > 60; Glucose Fasting 100 mg/dL (60-99); HDL Cholesterol 44 mg/dL (>40); Iron 74 mcg/dL (30-160); LDL Cholesterol Calculated 93 mg/dL (<100); Percent Iron Saturation 27 % (15-50); Potassium 3.8 mmol/L (3.3-5.1); Sodium 141 mmol/L (135-145); Total Iron Binding Capacity 270 mcg/dL (228-428); Total Protein 6.8 g/dL (6.5-8.0); Triglycerides 85 mg/dL (<150); Unsaturated Iron Binding 196 ug/dL
== END 2023-09-09 06:09 | disposition home or self-care (01) ==
LOC: HO.XRAY 06:08
PROVIDERS: PCP Internal Medicine; Visit Provider Internal Medicine
DX: Z00.00 Encounter for general adult medical examination without abnormal findings (principal); M79.642 Pain in left hand; D64.9 Anemia, unspecified
CPT/HCPCS: 36415; 73120; 80053; 80061; 83540; 85025

== ENCOUNTER 2023-09-13 11:06 | Outpatient (AMB) | payer OTHER, SELFPAY ==
[2023-09-13 11:11] VITALS: BP 110/70; BMI 25.1
--- NOTE | 2023-09-13 11:11 | A.OFFPC_ITS ---
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 Accompanied by: Mother Allergies iodine [IODINE] Allergy (Severe, Verified 09/13/23 11:16) ANGIOEDEMA SEAFOOD Allergy (Severe, Uncoded 09/13/23 11:16) ANGIOEDEMA Medication List - Last Reconciled 09/13/23 by Irene Lantigua MD hydroxyzine pamoate (Vistaril) 25 mg PO BID PRN 30 days sertraline 25 mg PO DAILY Tobacco use date assessed: 07/22/23 Dental Screening Dental Screen Date: 07/22/23 HPI HPI Comments History of Present Illness Details This is a 32-year-old female that comes accompanied by mother complaining of neck pain that has been going on for about 2 weeks and is associated with a lump in the neck in the right posterior lower part that is t bhupinder. I will order an ultrasound. No fever or night sweats. Labs were discussed and were normal. [facility] Medical History Migraine headache Coccyx pain Anxiety and depression Surgical History Tubal ligation status History of cholecystectomy History of No pertinent past surgical history Family History Mother Cancer Diabetes Osteoporosis Father No problems noted. Other Substance use disorder Social History Household Members: Family Housing: Apartment Do you presently have visiting nurse or other home services: No Alcohol intake: never Patient Tobacco Use Status: Current everyday Tobacco user Tobacco use type: Cigarette Cigarettes Per Day: 10 e-Cigarette/Vaping Use: Never Used Second Hand Smoke Exposure: Yes service: No Current occupational status: unemployed Cognitive needs: No Hearing needs: No Vision needs: No Questionnaire Thrive Questionnaire Date Thrive assessed: 07/22/23 ROSA-7 AMB Questionnaire ROSA-7 Date ROSA - 7 assessed: 07/22/23 Source: Developed by Drs. Eyal Ocasio, Марина Davis, Isac Eid and colleagues, with an educational marshall from [employer]. Review of Systems Const All systems reviewed & are unremarkable except as noted in HPI and below Card Denies chest pain at rest, Denies chest pain with activity, Denies edema, Denies irregular heart rhythm, Denies claudication, Denies dyspnea, Denies dyspnea on exertion, Denies orthopnea, Denies paroxysmal nocturnal dyspnea and Denies slow heart rate Resp Denies cough, Denies dyspnea and Denies dyspnea on exertion Physical exam (Primary Care) Vital Signs: Last Vital Signs BP 110/70 09/13/23 11:11 BMI result Body Mass Index 25.1 Tobacco/Smoking Status: Tobacco use Status Tobacco use date assessed 07/22/23 09/13/23 11:14 Patient Tobacco Use Status Current everyday Tobacco 09/13/23 11:14 Tobacco use type Cigarette 09/13/23 11:14 e-Cigarette/Vaping Use Never Used 09/13/23 11:14 Thrive Assessment: Date of Thrive Assessment Date Thrive assessed 07/22/23 09/13/23 11:14 Neck Lymphatic: lymphadenopathy (tender posterior in right lower part of the neck) Resp Effort & Inspection: normal respiratory effort Auscultation: clear to auscultation bilaterally Cardio Jugular venous distension: no JVD Rate: regular rate Rhythm: regular rhythm Heart sounds: S1 normal heart sound present and S2 normal heart sound present Extrem General: Yes full ROM Assessment and Plan Assessment & Plan (1) Neck mass: Code(s): R22.1 - Localized swelling, mass and lump, neck Plan: Ultrasound ordered. Orders: Orders US soft tiss head and/or neck Today R22.1 - Localized swelling, mass and lump, neck Medications: New ibuprofen 600 mg PO TID PRN 21 tabs 0RF pain 7 days Coding Level of Care Code Est Pt Level 3 (45995) Complex EM visit Add On G2211 Diagnoses Neck mass R22.1 Time Spent (min) 19
== END 2023-09-13 11:31 | disposition home or self-care (01) ==
PROVIDERS: PCP Internal Medicine; Visit Provider Internal Medicine
DX: R22.1 Localized swelling, mass and lump, neck (principal)
CPT/HCPCS: 99213; G2211

== ENCOUNTER 2023-10-04 14:53 | Outpatient (REF) | payer OTHER, SELFPAY ==
--- NOTE | ~2023-10-04 | US_ITS ---
EXAMINATION: US SOFT TISSUE OF THE NECK CLINICAL INFORMATION: Localized swelling, mass and lump, neck. Right posterior neck mass. COMPARISON: None available. TECHNIQUE: Linear transducer grayscale and color Doppler examination of the right lateral neck near collar bone. FINDINGS/ US/US soft tiss head and/or neck IMPRESSION: Palpable abnormality corresponds with a few small, normal-sized, normal-appearing lymph nodes. No other abnormality identified in this region. No well-organized fluid collection. No abnormal color Doppler flow. Electronically signed by: Jefferson Reyes MD 10/23/2023 10:50 AM EDT
== END 2023-10-04 14:54 | disposition home or self-care (01) ==
LOC: HO.US 14:53
PROVIDERS: PCP Internal Medicine; Visit Provider Internal Medicine
DX: R22.1 Localized swelling, mass and lump, neck (principal)
CPT/HCPCS: 76536

== ENCOUNTER 2023-12-12 12:34 | Emergency (ER) | payer OTHER, SELFPAY ==
[2023-12-12 12:44] VITALS: BP 100/64; PULSE 102; RESP 16; TEMP 36.2; O2SAT 96; BMI 26.5
--- NOTE | 2023-12-12 12:44 | ED.GENADULT ---
HPI - General Adult General Chief complaint: Skin/Abscess/Foreign Body Stated complaint: Bartholin cyst Time Seen by Provider: 12/12/23 12:56 Source: patient Mode of arrival: ambulatory Limitations: no limitations History of Present Illness ED Provider: Marli Ren PA-C HPI narrative: 33 yo female with PMH of polysubstance use disorder, acne vulgaris, anxiety and depression reports with 24 hr vaginal labial pain, redness and swelling. Reports this is likely a bartholin cyst as she has had them before and this feels the same. Denies any discharge, fevers, N/V/diarrhea. Denies any difficulty with urination, no radiating, associated or flank pain. complaint: left labial swelling and pain Onset (ago): day(s) (1) Location: genitals Radiation: non-radiation Severity: severe Quality: aching Pain Consistency: constant Relieving factors: rest Exacerbating factors: movement Associated symptoms: denies other symptoms Treatments prior to arrival: none Related Data Home Medications ?Medication ?Instructions ?Recorded ?Confirmed sertraline 25 mg tablet 25 mg PO DAILY 09/13/23 09/13/23 Previous Rx's ?Medication ?Instructions ?Recorded hydroxyzine pamoate 25 mg capsule 25 mg PO BID PRN anxiety 30 days 07/22/23 (Vistaril) #60 caps ibuprofen 600 mg tablet 600 mg PO TID PRN pain 7 days #21 09/13/23 tabs cephalexin 500 mg tablet 500 mg PO Q6H 7 days #28 tabs 12/12/23 ibuprofen 600 mg tablet 600 mg PO Q8H PRN fever or pain 12/12/23 #10 tabs Allergies Allergy/AdvReac Type Severity Reaction Status Date / Time iodine [IODINE] Allergy Severe ANGIOEDEMA Verified 12/12/23 12:45 SEAFOOD Allergy Severe ANGIOEDEMA Uncoded 09/13/23 11:16 Review of Systems Review of Systems: Yes all other systems are reviewed and are negative PMFSH Past Medical History Medical History Migraine headache Coccyx pain Anxiety and depression Surgical History Tubal ligation status History of cholecystectomy History of No pertinent past surgical history Family History Family History Mother Cancer Diabetes Osteoporosis Father No problems noted. Other Substance use disorder Social History Social History Household Members: Family Housing: Apartment Do you presently have visiting nurse or other home services: No Alcohol intake: never Patient Tobacco Use Status: Current everyday Tobacco user Tobacco use type: Cigarette Cigarettes Per Day: 10 e-Cigarette/Vaping Use: Never Used Second Hand Smoke Exposure: Yes Advance Directives: No Advance Directives Information Provided: Yes service: No Current occupational status: unemployed Cognitive needs: No Hearing needs: No Vision needs: No Physical Exam ED Vital Signs: Vital Signs - 24 hr 12/12/23 12:44 12/12/23 13:47 Temperature 97.2 F 97.2 F Pulse Rate 102 H 102 H Respiratory Rate 16 16 Blood Pressure 100/64 100/64 Pulse Oximetry 96 96 Oxygen Delivery Method Room Air Room Air BMI result Body Mass Index 26.5 Appearance: Alert. Oriented X3. No acute distress. HEENT: normal external inspection Neck: Normal inspection. Respiratory: No respiratory distress. : Left labia majora with moderate generalized swelling, erythema and diffuse tenderness. Area is mildly indurated with no area of fluctuance. No identified Bartholin cyst. No vaginal lesions, excoriations, or bleeding at the vaginal introitus. Skin: Skin warm and dry. Normal skin color. Normal skin turgor. No rashes. Extremities: No lower extremity edema. No joint swelling. Neuro/psych: Oriented X 3. Grossly normal, nonfocal Normal speech and cognition. Course Course Course Narrative: This is a Rapid Medical Examination (RME) performed by Tree Duron PA-C in triage. Full HPI, ROS, assessment and treatment plan per primary provider in the Main ED. 33 yo hungarian speaking female hx of anxiety, depression, migraine here for eval of vaginal cyst x24 hours. no drainage. hx of bartholins cyst, this feels similar. denies fever/chills. +area not examined in triage d/t privacy. Plan: further eval in ED Medical Decision Making Medical Decision Making MDM Narrative: 33 yo female with PMH of polysubstance use disorder, acne vulgaris, anxiety and depression reports with 24 hr vaginal labial pain. On assessment, is afebrile, has left labia majora edema, slight erythematous localized to left labia only. Negative for discharge, or foul smelling drainage. Surrounding tissues is without abnormalities. Has chronic hx of bartholin cysts. Unable to identify a fluctuant area for drainage today. Area is erythematous, tender, mildly indurated without any fluctuance. Will start on oral antibiotics, advise warm compresses and outpatient follow-up with her OBGYN this week. Patient is stable for discharge home, return precautions were discussed. Differential Diagnosis Differential Diagnoses: The differential diagnosis associated with the presentation includes bartholin's cyst, bacterial or yeast infection, abscess, vaginismus, vulvar vestibulitis, foliculitis, cellulitis Independent Historian Clinical information obtained from an independent historian. History obtained from or confirmed by: Parent External Record Review External record reviewed: Prior outpatient labs Prescription Management I considered prescription management with: Pain Medication and Antibiotic Critical Care Time Critical Care Time Critical Care Time: No Discharge Plan Discharge Clinical Impression: Cellulitis Qualifiers: Site of cellulitis: unspecified site Qualified Code(s): L03.90 - Cellulitis, unspecified Patient Disposition: Home, Self-Care Instructions: Cellulitis (DC), Bartholin Cyst (ED), Warm Compress or Soak (ED) Additional Instructions: Exam today was consistent with significant inflammation, no safe area to locally drain the infection Take the prescribed antibiotics as directed, complete the entire course and do not miss any doses Use warm compresses several times per day Follow up with your PROGRAM DIRECTOR AIR TALENT this week If you develop new or worsening symptoms call 911 or come back to the ER for further evaluation. Prescriptions: New ibuprofen 600 mg tablet 600 mg PO Q8H PRN (Reason: fever or pain) Qty: 10 0RF cephalexin 500 mg tablet 500 mg PO Q6H 7 Days Qty: 28 0RF No Action hydroxyzine pamoate [Vistaril] 25 mg capsule 25 mg PO BID PRN (Reason: anxiety) 30 Days Qty: 60 0RF sertraline 25 mg tablet 25 mg PO DAILY ibuprofen 600 mg tablet 600 mg PO TID PRN (Reason: pain) 7 Days Qty: 21 0RF Referrals: Irene Combs MD [Primary Care Provider] - Interventions: ED Discharge Assessment Last Done: 12/12/23 13:47 Discharge Date/Time: 12/12/23 13:47 Print Language: Niuean
[2023-12-12 13:47] VITALS: BP 100/64; PULSE 102; RESP 16; TEMP 36.2; O2SAT 96
== END 2023-12-12 13:47 | disposition home or self-care (01) ==
PROVIDERS: Emergency Provider Emergency Medicine; PCP Internal Medicine
DX: N75.0 Cyst of Bartholin's gland (principal); N76.2 Acute vulvitis; F17.210 Nicotine dependence, cigarettes, uncomplicated
CPT/HCPCS: 99282

== ENCOUNTER 2024-07-27 14:20 | Outpatient (AMB) | payer OTHER, SELFPAY ==
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
[2024-07-27 14:34] VITALS: BP 110/62; BMI 28.3
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
== END 2024-07-27 15:43 | disposition home or self-care (01) ==
LOC: HO.HMCH 14:21
PROVIDERS: PCP Internal Medicine; Visit Provider Internal Medicine
DX: Z23 Encounter for immunization (principal); Z00.00 Encounter for general adult medical examination without abnormal findings

== ENCOUNTER → 2024-07-27 14:20 | Outpatient (BNVA) | payer OTHER, SELFPAY | PROVIDERS: PCP Internal Medicine; Visit Provider Internal Medicine | DX: Z00.00 Encounter for general adult medical examination without abnormal findings (principal); B00.9 Herpesviral infection, unspecified; Z23 Encounter for immunization | CPT/HCPCS: 90471; 90715; 96127; 99395 ==

== ENCOUNTER 2024-10-31 08:33 | Emergency (ER) | payer OTHER, SELFPAY ==
[2024-10-31 08:52] VITALS: BP 113/59; PULSE 62; RESP 16; TEMP 36.6; O2SAT 98; BMI 29.4
--- NOTE | 2024-10-31 10:19 | PC.NURSE ---
pt was seen by provider and made aware of the care pain. pt was medicated as charted
--- NOTE | 2024-10-31 10:31 | ED_ITS ---
HPI - General Adult General Chief complaint: General Medical Stated complaint: Muscle spasm Time Seen by Provider: 10/31/24 09:56 Source: patient, old records reviewed and paraprofessional interpreter Mode of arrival: ambulatory Limitations: no limitations History of Present Illness ED Provider: JUANCHO SCHOFIELD narrative: 33 yo female with hx of migraines, anxiety and depression who has hx of muscle spasms in past for the last two weeks she has on and off neck spasms R > L. No trauma, isn't using her special pillow. She has no numbness or weakness. She c/o pain in bilateral neck. No trauma or neck manipulation MD complaint: neck spasm Onset (ago): week(s) (2) Location: neck Radiation: non-radiation Severity: moderate Quality: other (throbbing) Pain Consistency: constant Relieving factors: immobilization Exacerbating factors: movement Associated symptoms: denies other symptoms Treatments prior to arrival: none Related Data Previous Rx's ?Medication ?Instructions ?Recorded cyclobenzaprine 10 mg tablet 10 mg PO TID PRN muscle s pasm #20 10/31/24 tabs ibuprofen 600 mg tablet 600 mg PO Q6H PRN pain #30 t abs 10/31/24 Allergies Allergy/AdvReac Type Severity Reaction Status Date / Time iodine (IODINE) Allergy Severe ANGIOEDEMA Verified 10/31/24 08:55 SEAFOOD Allergy Severe ANGIOEDEMA Uncoded 07/27/24 15:03 Review of Systems 2 Review of Systems: Yes all other systems are reviewed and are negative PMFSH Past Medical History Attestation statement: The following information was validated with the patient. Source: old records reviewed Medical History Migraine headache Coccyx pain Anxiety and depression Surgical History Tubal ligation status History of cholecystectomy History of Family History Family History Mother Cancer Diabetes Osteoporosis Father No problems noted. Other Substance use disorder Social History Social History Household Members: Family Housing: Apartment Do you presently have visiting nurse or other home services: No Alcohol intake: never Patient Tobacco Use Status: Former Tobacco user Tobacco use type: Cigarette Cigarettes Per Day: 10 e-Cigarette/Vaping Use: Never Used Second Hand Smoke Exposure: Yes Advance Directives: No Advance Directives Information Provided: Yes service: No Current occupational status: unemployed Cognitive needs: No Hearing needs: No Vision needs: No Physical Exam ED Vital Signs: Vital Signs - 24 hr 10/31/24 08:52 Temperature 97.8 F Pulse Rate 62 Respiratory Rate 16 Blood Pressure 113/59 L Pulse Oximetry 98 Oxygen Delivery Method Room Air BMI result Body Mass Index 29.4 Appearance: Alert. Oriented X3. No acute distress. Eyes: Pupils equal, round and reactive to light. ENT: Pharynx normal. Neck: ttp along bilateral trapezius muscles CVS: Normal heart rate and rhythm. Pulses normal. Respiratory: No respiratory distress. Breath sounds normal. Abdomen: Soft and nontender. Skin: Skin warm and dry. Normal skin color. Normal skin turgor. Extremities: No lower extremity edema. UE intact bilaterally Neuro: Oriented X 3. No motor deficit. No sensory deficit. Medications Administered Discontinued Medications Generic Name Dose Route Start Last Admin Trade Name Freq PRN Reason Stop Dose Admin Cyclobenzaprine HCl 10 mg 10/31/24 10:05 10/31/24 10:18 Cyclobenzaprine Hcl 10 Mg Tablet PO 10/31/24 10:06 10 mg ONCE ONE Administration Medical Decision Making Medical Decision Making [facility] Narrative: 33 yo female with hx of migraines, anxiety and depression here with atraumatic neck pain but NV intact, no fevers, no trauma 2 weeks without neuro deficitis it is reproduceable - doubt dissection/infection. At this time will obtain mag and K and start on muscle relaxers. Differential Diagnosis Differential Diagnoses: The differential diagnosis associated with the presentation includes lyte abnormality, neck spasms Admission/Observation Consideration of admission/observation: Escalation of care including admission/observation considered work up reassuring stable for DC Lab Data [facility] Lab Attestation statement: I reviewed the patient's lab results. 10/31/24 10:45 10/31/24 10:45 Labs: Lab Results 10/31/24 Range/Units 10:45 WBC 6.6 (4.8-10.8) X10*3/uL RBC 4.27 (4.20-5.50) X10*6/uL Hgb 12.0 (12.0-16.0) g/dl Hct 37.2 (37.0-47.0) % MCV 87.1 (80.0-98.0) fL MCH 28.1 (27.0-33.0) pg MCHC 32.3 (31.0-35.0) g/dl RDW 13.0 (11.0-16.0) % Plt Count 278 (160-400) X10*3/uL MPV 10.0 (9.4-12.3) fL Immature Gran % (Auto) 0.3 (0.0-0.4) % Neut % (Auto) 62.2 (45-73) % Lymph % (Auto) 28.8 (20-40) % [place] % (Auto) 6.7 (2-11) % Eos % (Auto) 1.4 (0-4) % Baso % (Auto) 0.6 (0-2) % Lymph # (Auto) 1.9 (1.2-4.9) X10*3/uL [place] # (Auto) 0.4 (0.1-1.2) X10*3/uL Eos # (Auto) 0.1 (0.0-0.4) X10*3/uL Baso # (Auto) 0.0 (0.0-0.2) X10*3/uL Abs Immat Gran (auto) 0.02 (0.00-0.03) X10*3/uL Absolute Neuts (auto) 4.1 (2.0-8.3) x10*3/uL Absolute Nucleated RBC 0.000 (0.0-0.012) X10*3/uL Nucleated RBC % (auto) 0.0 (0.0-0.2) /100WBC Sodium 139 (135-145) mmol/L Potassium 4.1 (3.3-5.1) mmol/L Chloride 108 (96-108) mmol/L Carbon Dioxide 25 (22-29) mmol/L Anion Gap 10 L (12-20) BUN 12 (9-16) mg/dL Creatinine 0.79 (0.5-1.4) mg/dL Estim Creat Clear Calc 94.7 Estimated GFR > 60 Random Glucose 107 (60-115) mg/dL Calcium 9.4 (8.4-10.2) mg/dL Magnesium 1.9 (1.6-2.6) mg/dL External Record Review External record reviewed: Outpatient record Prescription Management I considered prescription management with: Pain Medication and Other Discharge Plan Discharge Clinical Impression: Muscle spasms of neck Patient Disposition: Home, Self-Care Instructions: Muscle Spasm (ED) Additional Instructions: labs are reassuring monitor for numbness, weakness, or any other concerns rotate motrin and tylenol along with muscle relaxer follow up with your primary care doctor use a better pillow Prescriptions: New cyclobenzaprine 10 mg tablet 10 mg PO TID PRN (Reason: muscle spasm) Qty: 20 0RF ibuprofen 600 mg tablet 600 mg PO Q6H PRN (Reason: pain) Qty: 30 0RF Stand Alone Forms: Work/School Release Print Language: Japanese
[2024-10-31 10:49] LABS: MANUAL DIFF FLAG NO
[2024-10-31 10:52] LABS: Hematocrit 37.2 % (37.0-47.0); Hemoglobin 12.0 g/dl (12.0-16.0); Imm Gran Abs Auto 0.02 X10*3/uL (0.00-0.03); Imm Gran Pct Auto 0.3 % (0.0-0.4); Lymphocytes Absolute Auto 1.9 X10*3/uL (1.2-4.9); Mean Corpuscular HGB Conc 32.3 g/dl (31.0-35.0); Mean Corpuscular Hemoglobin 28.1 pg (27.0-33.0); Mean Corpuscular Volume 87.1 fL (80.0-98.0); NRBC Abs Auto 0.000 X10*3/uL (0.0-0.012); NRBC Pct Auto 0.0 /100WBC (0.0-0.2); Platelet Count 278 X10*3/uL (160-400); Red Blood Count 4.27 X10*6/uL (4.20-5.50); White Blood Count 6.6 X10*3/uL (4.8-10.8)
[2024-10-31 11:09] LABS: Anion Gap 10 (12-20); Blood Urea Nitrogen 12 mg/dL (9-16); Calcium 9.4 mg/dL (8.4-10.2); Carbon Dioxide 25 mmol/L (22-29); Chloride 108 mmol/L (96-108); Creatinine Clr Calc Pharmacy 94.7; Estimated Glomerular Filt Rate > 60; Magnesium 1.9 mg/dL (1.6-2.6); Potassium 4.1 mmol/L (3.3-5.1); Sodium 139 mmol/L (135-145)
[2024-10-31 11:25] VITALS: BP 113/59; PULSE 62; RESP 16; TEMP 36.6; O2SAT 98
== END 2024-10-31 11:27 | disposition home or self-care (01) ==
PROVIDERS: Emergency Provider Emergency Medicine; PCP Internal Medicine
DX: M62.838 Other muscle spasm (principal); M54.2 Cervicalgia; Z79.899 Other long term (current) drug therapy; Z87.891 Personal history of nicotine dependence
CPT/HCPCS: 36415; 80048; 83735; 85025; 99283